=== PATIENT | female | born 1965 | race Two or more races ===

== ENCOUNTER 2020-01-28 06:59 | Inpatient (IN) | payer OTHER ==
[~2020-01-28] VITALS: Ht 157.5 cm; Wt 74.8 kg
[2020-01-28 07:15] VITALS: BP 152/72
[2020-01-28] MEDS ORDERED: AMLODIPINE BES2.5 MG ORAL (07:15)
[2020-01-28] MEDS ORDERED: METFORMIN HCL500 M1 ORAL (07:15)
--- NOTE | 2020-01-28 07:15 | NUR ---
ED Nurse Note: Patient walked into ED from home c/o 06/08 lower right jaw pain x 2 days. Patient has been taking Keflex with no effect. Patient's chin is swollen and has a small area of open skin over the swollen area. Patient AxO x 4, no s/s of acute distress. 20 g IV started in right AC, blood sent to lab. Consent for CT w/ contrast signed by patient.
--- NOTE | 2020-01-28 07:40 | Emergency Room Report ---
History of Present Illness General Chief Complaint: Edema Source: Patient Present Illness HPI Disclaimer: Please note that this report is being documented using DRAGON technology. This can lead to erroneous entry secondary to incorrect interpretation by the dictating instrument. HPI: 54-year-old female presents for evaluation of facial pain and swelling. She has a history of diabetes hypertension and anemia. Patient states she popped a pimple on the right side of her chin several days ago noting worsening pain, swelling and erythema which is now tracking down the right side of the neck. Notes worsening pain and induration. Denies swelling of the tongue, throat, difficulty breathing, difficulty swallowing, fever, chills, sore throat , nasal congestion, chest pain, shortness of breath, cough, vomiting, diarrhea. Notes swelling of the right lip. She was started on antibiotics by her PMD yesterday. Pain was getting worse and came into the hospital for evaluation. She states it is very tender to palpation. No significant provement after antibiotics started yesterday. PMH: Hypertension, diabetes, anemia PSH: Denies Allergies: Denies Social Hx: Denies tobacco, drug or alcohol abuse Allergies: Coded Allergies: No Known Allergies (Unverified , 01/28/20) COVID-19 Screening Contact w/high risk pt: No Recent Travel to affected area: No Experienced COVID-19 symptoms?: No Patient History Now: No Nursing Documentation-PMH Past Medical History: No History, Except For Hx Hypertension: Yes Hx Diabetes: Yes Review of Systems All Other Systems: negative except mentioned in HPI Physical Exam Vital Signs Date Time Temp Pulse Resp B/P (MAP) Pulse Ox O2 Delivery O2 Flow Rate FiO2 01/28/20 07:11 97.2 80 17 176/68 (104) 98 Room Air General: Awake and alert, no acute distress HEENT: NC/AT. EOMI. edema of the right lower lip and right side of the lower face tracking into the submandibular region. Indurated and tender to palpation. Firm, no fluctuance. There are 2 burst papules on the right lower chin. Cannot express any fluid. Neck: Supple, trachea midline. Stranding erythema radiating from the right lower chin down the right side of the neck. Mild edema over the neck as well. Tolerating secretions well. No tongue edema. Uvula is midline. Chest Wall: No tenderness, no deformity Cardiovascular: RRR. S1 and S2 normal. No murmur appreciated Resp: Normal work of breathing. No stridor. No cough, wheezing or crackles appreciated Abdomen: Abdomen is soft, nondistended. Nontender Skin: Intact. No abrasions, laceration or rash over the exposed skin MSK: Normal tone and bulk. Moving all extremities. No obvious deformity. Neuro: Awake and alert. Mentating appropriately. Medical Decision Making Diagnostic Impression: Primary Impression: Facial cellulitis ER Course This is a 54-year-old female presenting for evaluation of right-sided facial pain and swelling. Differential includes but is not limited to erysipelas, cellulitis, abscess, Lee angina, allergic reaction. Her history of physical exam most consistent with a cellulitis however there is edema and erythema tracking down into the submandibular region and must evaluate for deep space infection. Will obtain labs, cultures, CT scan. Will start Unasyn. Patient be kept n.p.o., IV maintenance fluids started. Laboratory Tests Test 01/28/20 07:50 White Blood Count 9.5 K/UL (4.8-10.8) Red Blood Count 4.98 M/UL (4.20-5.40) Hemoglobin 14.0 G/DL (12.0-16.0) Hematocrit 40.4 % (37.0-47.0) Mean Corpuscular Volume 81 FL (80-99) Mean Corpuscular Hemoglobin 28.1 PG (27.0-31.0) Mean Corpuscular Hemoglobin Concent 34.6 G/DL (32.0-36.0) Red Cell Distribution Width 11.1 % (11.6-14.8) L Platelet Count 196 K/UL (150-450) Mean Platelet Volume 7.1 FL (6.5-10.1) Neutrophils (%) (Auto) 79.3 % (45.0-75.0) H Lymphocytes (%) (Auto) 12.9 % (20.0-45.0) L Monocytes (%) (Auto) 6.4 % (1.0-10.0) Eosinophils (%) (Auto) 0.7 % (0.0-3.0) Basophils (%) (Auto) 0.7 % (0.0-2.0) Sodium Level 134 MMOL/L (136-145) L Potassium Level 3.7 MMOL/L (3.5-5.1) Chloride Level 98 MMOL/L (98-107) Carbon Dioxide Level 29 MMOL/L (21-32) Anion Gap 7 mmol/L (5-15) Blood Urea Nitrogen 11 mg/dL (7-18) Creatinine 0.5 MG/DL (0.55-1.30) L Estimated Glomerular Filtration Rate > 60 mL/min (>60) Glucose Level 265 MG/DL (74-106) H Calcium Level 9.1 MG/DL (8.5-10.1) Total Bilirubin 0.4 MG/DL (0.2-1.0) Aspartate Amino Transferase (AST) 15 U/L (15-37) Alanine Aminotransferase (ALT) 28 U/L (12-78) Alkaline Phosphatase 172 U/L (46-116) H Total Protein 7.6 G/DL (6.4-8.2) Albumin 3.3 G/DL (3.4-5.0) L Globulin 4.3 g/dL Albumin/Globulin Ratio 0.8 (1.0-2.7) L Reevaluation Time: 12:23 Last Vital Signs Date Time Temp Pulse Resp B/P (MAP) Pulse Ox O2 Delivery O2 Flow Rate FiO2 01/28/20 07:11 97.2 80 17 176/68 (104) 98 Room Air Reevaluation Impression Preliminary CT interpretation shows cellulitis tracking to the platysma and possibly crossing the platysma though no deep space abscess or signs of significant deep space infection were noted. The patient receiving Unasyn. Cultures were sent. She remains in stable condition without airway compromise. She will be admitted to medical/surgical floor for further IV antibiotics and treatment of facial cellulitis. Will admit to panel physician. Disposition: ADMITTED INPATIENT Condition: Serious Referrals: NOT CHOSEN IPA/,REFERRING (PCP) Vivek Wesley MD Jan 28, 2020 07:40
[2020-01-28] MEDS ORDERED: Omnipaque-300 100ml vial INJ ONE (07:45)
[2020-01-28] MEDS ORDERED: Morphine Sulfate 4mg/ml Inj (IV USE ONLY) IVP ONE ×2 (07:45→10:30)
[2020-01-28] MEDS ORDERED: Unasyn 3gm Inj IV SCH (07:45)
[2020-01-28] MEDS ORDERED: Unasyn 3gm in NS 110ml IVPB ONE (08:15)
[2020-01-28 08:21] LABS: BASOPHILS % (AUTO) 0.7 % (0.0-2.0); EOSINOPHILS % (AUTO) 0.7 % (0.0-3.0); HEMATOCRIT 40.4 % (37.0-47.0); LYMPHOCYTES % (AUTO) 12.9 % (20.0-45.0); MEAN CORPUSCULAR VOLUME 81 FL (80-99); MONOCYTES % (AUTO) 6.4 % (1.0-10.0); NEUTROPHILS % (AUTO) 79.3 % (45.0-75.0); PLATELET COUNT 196 K/UL (150-450); RED BLOOD COUNT 4.98 M/UL (4.20-5.40); RED CELL DISTRIBUTION WIDTH 11.1 % (11.6-14.8); WHITE BLOOD COUNT 9.5 K/UL (4.8-10.8)
[2020-01-28 08:30] LABS: ANION GAP 7 mmol/L (5-15); BLOOD UREA NITROGEN 11 mg/dL (7-18); CALCIUM 9.1 MG/DL (8.5-10.1); CARBON DIOXIDE 29 MMOL/L (21-32); CHLORIDE 98 MMOL/L (98-107); CREATININE 0.5 MG/DL (0.55-1.30); POTASSIUM 3.7 MMOL/L (3.5-5.1); SODIUM 134 MMOL/L (136-145)
[2020-01-28 08:35] LABS: ALANINE AMINOTRANSFERASE 28 U/L (12-78); ALBUMIN 3.3 G/DL (3.4-5.0); ALBUMIN/GLOBULIN RATIO 0.8 (1.0-2.7); ALKALINE PHOSPHATASE 172 U/L (46-116); ASPARTATE AMINO TRANSFERASE 15 U/L (15-37); BILIRUBIN,TOTAL 0.4 MG/DL (0.2-1.0)
--- NOTE | 2020-01-28 08:50 | NUR ---
ED Nurse Note: Patient taken to CT
[2020-01-28 09:10] VITALS: BP 148/75
--- NOTE | 2020-01-28 09:15 | NUR ---
ED Nurse Note: Patient returned from CT
--- NOTE | 2020-01-28 11:05 | NUR ---
ED Nurse Note: Patient resting in bed. Patient stated that initial dose of morphine was effective, but pain came back. Another dose of Morphine given per Dr. Wesley. Patient tolerating well.
[2020-01-28 11:10] VITALS: BP 149/71
[2020-01-28 13:10] VITALS: BP 146/80
--- NOTE | 2020-01-28 13:46 | Diagnostic Imaging Report ---
Indication: Facial pain and swelling Technique: IV administration nonionic contrast. Spiral acquisitions obtained through the neck. Multiplanar reconstructions were generated. Total dose length product to 7 mGycm. CTDIvol(s) 11, 71, 6 mGy. Dose reduction achieved using automated exposure control Comparison: none Findings: There is infiltration of the subcutaneous fat of the right side of the anterior face, beginning at about the level of the alveolar ridge of the maxilla, and extending inferiorly into the submental region. This extends is likely laterally to midline. In the submental region, there is some involvement of the fat deep to the platysma muscle. No evidence of abscess demonstrated. There are prominent but not frankly enlarged lymph nodes in the submental region as well as in the anterior triangle. The nasopharynx, oropharynx, hypopharynx, and larynx are unremarkable. No prevertebral soft tissue swelling. There are a few small calcifications within the thyroid. The trachea and proximal esophagus are unremarkable. The included upper mediastinum is unremarkable. The included lung apices demonstrate mild hazy opacities Impression: Inflammatory change of the superficial subcutaneous fat as well as a slightly deeper fat, likely representing cellulitis given stated clinical history. No findings to suggest abscess. Nonspecific hazy apical pulmonary parenchymal opacities. Small thyroid calcifications Findings previously discussed by phone with Dr. Wesley in the emergency room The CT scanner at [facility] is accredited by the [employer] and the scans are performed using protocols designed to limit radiation exposure to as low as reasonably achievable to attain images of sufficient resolution adequate for diagnostic evaluation.
--- NOTE | 2020-01-28 13:54 | NUR ---
ED Nurse Note: Report given to Jerry KIM
[2020-01-28] MEDS: metFORMIN 500mg tab ORAL SCH ×2 (14:00→17:33)
[2020-01-28] MEDS ORDERED: Zolpidem 5mg tab ORAL PRN (14:00)
--- NOTE | 2020-01-28 14:01 | History & Physical ---
History and Physical History & Physicial HP dictated # [id number] Curly Tanner MD Jan 28, 2020 14:01
--- NOTE | 2020-01-28 14:40 | NUR ---
NURSE NOTES: Handoff received from JUDY Benítez. Patient transported to room via wheelchair. Patient is alert and oriented to person, time, place and situation. Patient complaining of 7/10 pain in the face and jaw. patient admitted for facial cellulitis. Patient has right AC 20g IV clean dry and intact, saline locked. Patient educated on visiting policy, no visitors at this time due to covid19. Patient oriented to room, call light and provided with TV remote and phone. Bed in the low and locked position with call light at bedside. Patient ambulates steady. Vitals are stable, patient able to make needs known, no acute signs of distress noted. Medications placed in pharmacy. Will continue to monitor patient.
[2020-01-28] MEDS ORDERED: Vancomycin 1.25gm/NS Premix IVPB ONE (15:00)
[2020-01-28] MEDS ORDERED: Morphine Sulfate 4mg/ml Inj (IV USE ONLY) IVP PRN (15:30)
[2020-01-28 16:12] VITALS: BP 155/74
--- NOTE | 2020-01-28 16:30 | History and Physical Report ---
DATE OF ADMISSION: 01/28/2020 CHIEF COMPLAINT: Facial swelling and redness. HISTORY OF PRESENT ILLNESS: This is a 54-year-old female who started having some redness over the right side of her chin about 3 days ago. The patient apparently popped a pimple over there and then the swelling and redness became worse, extending to the right side of the neck. The patient was seen in the emergency room, was diagnosed with facial cellulitis and was admitted. PAST MEDICAL HISTORY: Includes history of diabetes, hypertension, anemia. MEDICATIONS: Reviewed in the EMR. SOCIAL HISTORY: The patient lives at home with . No history of smoking or alcohol abuse. ALLERGIES: No known drug allergies. REVIEW OF SYSTEMS: Noncontributory except above. PHYSICAL EXAMINATION: GENERAL: The patient is a moderately obese female, in no acute distress. VITAL SIGNS: Blood pressure , pulse 80, respirations 17, temperature 97.2. HEENT: The patient has right side with redness and redness is well demarcated and extends beyond that point from the chin to the face as well as to the neck area. LUNGS: Clear to auscultation. HEART: S1, S2 without murmurs or rubs. ABDOMEN: Soft, nontender. EXTREMITIES: No cyanosis or edema. LABORATORY FINDINGS: The CBC shows a WBC of 9500, hematocrit 40.4, hemoglobin is 14, platelets 196,000. Chemistry panel shows a serum sodium 134, potassium 3.7, chloride 98, BUN is 11, creatinine 0.5, blood sugar is 265. ASSESSMENT: This is a 54-year-old female who was admitted with facial cellulitis, probably started from a pimple. The patient has diabetes. Her blood sugar is not controlled. She has history of hypertension. Blood pressure is not controlled either. PLAN: The patient will be on IV antibiotics of Vanco and Zosyn. She will be seen by ID training consultant as well as surgical consultation to see if the abscess needs to be drained. She is going to be on sliding scale insulin. Blood pressure medications will be adjusted. Curly Tanner M.D. DR: GRAHAM JOB#: [id number] CC:
[2020-01-28] MEDS: NovoLOG Insulin Flexpen SUBQ SCH ×2 (17:33→20:07)
--- NOTE | 2020-01-28 17:37 | Consultation ---
History of Present Illness General Date patient seen: Jan 28, 2020 Reason for Hospitalization: Edema Present Illness HPI 54-year-old female presents for evaluation of facial pain and swelling. She has a history of diabetes hypertension and anemia. Patient states she popped a pimple on the right side of her chin several days ago noting worsening pain, swelling and erythema which is now tracking down the right side of the neck. Notes worsening pain and induration. Denies swelling of the tongue, throat, difficulty breathing, difficulty swallowing, fever, chills, sore throat, nasal congestion, chest pain, shortness of breath, cough, vomiting, diarrhea. Notes swelling of the right lip. She was started on antibiotics by her PMD yesterday. Pain was getting worse and came into the hospital for evaluation. She states it is very tender to palpation. No significant provement after antibiotics started yesterday. Surgery called toe valuate and assist with care given cellulitis Allergies: Coded Allergies: No Known Allergies (Unverified , 01/28/20) COVID-19 Screening Contact w/high risk pt: No Recent Travel to affected area: No Experienced COVID-19 symptoms?: No Medication History Scheduled Amlodipine Besylate* (Amlodipine Besylate*), Unknown Dose ORAL DAILY, (Reported) Metformin Hcl* (Metformin Hcl*), Unknown Dose ORAL TWICE A DAY, (Reported) Patient History History Provided By: Patient, Medical Record, PMD Healthcare decision maker Resuscitation status Full Code Advanced Directive on File Past Medical/Surgical History Past Medical/Surgical History: (1) Facial cellulitis Review of Systems Review of Symptoms General ROS: no weight loss or fever Psychological ROS: no depression or mood changes, no memory loss Ophthalmic ROS: no visual changes or eye irritation ENT ROS: no nasal congestion, hearing loss, dizziness Allergy and Immunology ROS: no allergic symptoms or urticaria Hematological and Lymphatic ROS: no swollen glands, unusual bleeding or bruising Endocrine ROS: no polyuria, polydipsia, weight changes, temperature intolerance Respiratory ROS: no cough, shortness of breath, or wheezing Cardiovascular ROS: no chest pain or dyspnea on exertion Gastrointestinal ROS: denies abdominal pain, bright red blood in stool. Musculoskeletal ROS: no myalgias or arthralgias Neurological ROS: no TIA or stroke symptoms Dermatological ROS: no new or changing skin lesions, rashes or pruritis Physical Exam Physical Exam General appearance: alert, cooperative, no distress, appears stated age Head: Normocephalic, without obvious abnormality, atraumatic Eyes: conjunctivae/corneas clear. PERRL, EOM's intact. Fundi benign Throat: Lips, mucosa, and tongue normal. Teeth and gums normal Neck: supple, symmetrical, trachea midline, no adenopathy, thyroid: not enlarged, symmetric, no tenderness/mass/nodules, no carotid bruit and no JVD see below Lungs: clear to auscultation bilaterally Heart: regular rate and rhythm, S1, S2 normal, no murmur, click, rub or gallop Abdomen: soft, non-tender. Bowel sounds normal. No masses, no organomegaly Extremities: extremities normal, atraumatic, no cyanosis or edema Pulses: 2+ and symmetric Skin: Skin color, texture, turgor normal. No rashes or lesions Neurologic: Grossly normal Last 24 Hour Vital Signs Date Time Temp Pulse Resp B/P (MAP) Pulse Ox O2 Delivery O2 Flow Rate FiO2 01/28/20 16:12 97.9 78 20 155/74 (101) 96 01/28/20 15:23 78 155/74 01/28/20 13:10 97.2 85 17 146/80 100 Room Air 01/28/20 11:10 97.3 81 17 149/71 100 Room Air 01/28/20 09:10 97.4 82 16 148/75 99 Room Air 01/28/20 07:15 80 17 Room Air 01/28/20 07:15 97.2 80 17 152/72 98 Room Air 01/28/20 07:11 97.2 80 17 176/68 (104) 98 Room Air Laboratory Tests Test 01/28/20 07:50 White Blood Count 9.5 K/UL (4.8-10.8) Red Blood Count 4.98 M/UL (4.20-5.40) Hemoglobin 14.0 G/DL (12.0-16.0) Hematocrit 40.4 % (37.0-47.0) Mean Corpuscular Volume 81 FL (80-99) Mean Corpuscular Hemoglobin 28.1 PG (27.0-31.0) Mean Corpuscular Hemoglobin Concent 34.6 G/DL (32.0-36.0) Red Cell Distribution Width 11.1 % (11.6-14.8) L Platelet Count 196 K/UL (150-450) Mean Platelet Volume 7.1 FL (6.5-10.1) Neutrophils (%) (Auto) 79.3 % (45.0-75.0) H Lymphocytes (%) (Auto) 12.9 % (20.0-45.0) L Monocytes (%) (Auto) 6.4 % (1.0-10.0) Eosinophils (%) (Auto) 0.7 % (0.0-3.0) Basophils (%) (Auto) 0.7 % (0.0-2.0) Sodium Level 134 MMOL/L (136-145) L Potassium Level 3.7 MMOL/L (3.5-5.1) Chloride Level 98 MMOL/L (98-107) Carbon Dioxide Level 29 MMOL/L (21-32) Anion Gap 7 mmol/L (5-15) Blood Urea Nitrogen 11 mg/dL (7-18) Creatinine 0.5 MG/DL (0.55-1.30) L Estimat Glomerular Filtration Rate > 60 mL/min (>60) Glucose Level 265 MG/DL (74-106) H Calcium Level 9.1 MG/DL (8.5-10.1) Total Bilirubin 0.4 MG/DL (0.2-1.0) Aspartate Amino Transf (AST/SGOT) 15 U/L (15-37) Alanine Aminotransferase (ALT/SGPT) 28 U/L (12-78) Alkaline Phosphatase 172 U/L (46-116) H Total Protein 7.6 G/DL (6.4-8.2) Albumin 3.3 G/DL (3.4-5.0) L Globulin 4.3 g/dL Albumin/Globulin Ratio 0.8 (1.0-2.7) L Height (Feet): 5 Height (Inches): 2.00 Weight (Pounds): 167 Medications Current Medications Medications (Trade) Dose Ordered Sig/Velia Route PRN Reason Start Time Stop Time Status Last Admin Dose Admin Acetaminophen/ Hydrocodone Bitart ([place] 10/325) 1 tab Q4H PRN ORAL Pain Scale (3-7) 01/28/20 15:30 02/04/20 15:29 Amlodipine Besylate (Norvasc) 10 mg DAILY ORAL 01/28/20 14:00 02/27/20 13:59 01/28/20 15:23 Clonidine HCl (Catapres Tab) 0.1 mg Q4H PRN ORAL For High Blood Pressure 01/28/20 14:15 04/27/20 14:14 Dextrose (Dextrose 50%) 25 ml Q30M PRN IV Hypoglycemia 01/28/20 14:15 04/27/20 14:14 Dextrose (Dextrose 50%) 50 ml Q30M PRN IV Hypoglycemia 01/28/20 14:15 04/27/20 14:14 Insulin Aspart (NovoLOG) BEFORE MEALS AND HS SUBQ 01/28/20 16:30 04/27/20 16:29 01/28/20 17:33 Metformin HCl (Glucophage) 500 mg TWICE A DAY ORAL 01/28/20 14:00 02/27/20 13:59 01/28/20 17:33 Morphine Sulfate (Morphine Sulfate) 5 mg Q4H PRN IVP Severe Pain (Pain Scale 7-10) 01/28/20 15:30 02/04/20 15:29 01/28/20 15:53 Piperacillin Sod/ Tazobactam Sod 3.375 gm/Sodium Chloride 110 ml @ 27.5 mls/hr Q8H IVPB 01/28/20 17:00 02/04/20 16:59 Vancomycin HCl (Vanco rx to dose) 1 ea DAILY PRN MISC Per rx protocol 01/28/20 14:00 02/27/20 13:59 Vancomycin HCl 750 mg/Sodium Chloride 275 ml @ 183.333 mls/hr Q8H IVPB 01/28/20 23:00 02/02/20 22:59 Zolpidem Tartrate (Ambien) 5 mg HSPRN PRN ORAL Insomnia 01/28/20 14:00 02/04/20 13:59 Assessment/Plan Problem List: (1) Facial cellulitis Assessment & Plan: right facial abscess at jaw. neck okay. no fluctuance no drainage tender red will monitor on IV abx if develops abscess will be available for I&D. currently no abscess to drain There is infiltration of the subcutaneous fat of the right side of the anterior face, beginning at about the level of the alveolar ridge of the maxilla , and extending inferiorly into the submental region. This extends is likely laterally to midline. In the submental region, there is some involvement of the fat deep to the platysma muscle. No evidence of abscess demonstrated. There are prominent but not frankly enlarged lymph nodes in the submental region as well as in the anterior triangle. The nasopharynx, oropharynx, hypopharynx, and larynx are unremarkable. No prevertebral soft tissue swelling. There are a few small calcifications within the thyroid. The trachea and proximal esophagus are unremarkable. The included upper mediastinum is unremarkable. The included lung apices demonstrate mild hazy opacities Impression: Inflammatory change of the superficial subcutaneous fat as well as a slightly deeper fat, likely representing cellulitis given stated clinical history. No findings to suggest abscess. Nonspecific hazy apical pulmonary parenchymal opacities. Small thyroid calcifications ICD Codes: L03.211 - Cellulitis of face SNOMED: [id number] Garry Correia Jan 28, 2020 17:37
[2020-01-28] MEDS: Piperacillin/Tazobactam 3.375 GM in NS 110 ML IVPB SCH (18:51)
--- NOTE | 2020-01-28 19:27 | NUR ---
HAND-OFF: Report given to JUDY Sun.
[2020-01-28 20:00] VITALS: BP 153/73
--- NOTE | 2020-01-28 20:00 | NUR ---
NURSE NOTES: Patient received in bed, awake and orientedx4. IV is intact and patent. Reported better pain relieved with medication and reported decreased nausea. Bed is locked in low position. Call light in reach, instructed to call for assistance. Will continue plan of care.
[2020-01-28] MEDS: Vancomycin 750mg/NS 275ml IVPB SCH ×2 (23:11)
[2020-01-29] VITALS: BP 143/69
[2020-01-29] MEDS: Piperacillin/Tazobactam 3.375 GM in NS 110 ML IVPB SCH ×3 (00:44→17:20)
[2020-01-29 04:00] VITALS: BP 150/71
[2020-01-29] MEDS: NovoLOG Insulin Flexpen SUBQ SCH ×4 (05:54→20:17)
[2020-01-29] MEDS: Vancomycin 750mg/NS 275ml IVPB SCH ×2 (05:59)
[2020-01-29 06:42] LABS: BASOPHILS % (AUTO) 0.7 % (0.0-2.0); EOSINOPHILS % (AUTO) 0.2 % (0.0-3.0); HEMATOCRIT 37.5 % (37.0-47.0); HEMOGLOBIN 12.9 G/DL (12.0-16.0); LYMPHOCYTES % (AUTO) 13.8 % (20.0-45.0); MEAN CORPUSCULAR VOLUME 81 FL (80-99); MONOCYTES % (AUTO) 6.6 % (1.0-10.0); NEUTROPHILS % (AUTO) 78.6 % (45.0-75.0); PLATELET COUNT 217 K/UL (150-450); RED CELL DISTRIBUTION WIDTH 11.2 % (11.6-14.8); WHITE BLOOD COUNT 11.1 K/UL (4.8-10.8)
[2020-01-29 07:16] LABS: ANION GAP 9 mmol/L (5-15); BLOOD UREA NITROGEN 9 mg/dL (7-18); CARBON DIOXIDE 27 MMOL/L (21-32); CHLORIDE 98 MMOL/L (98-107); CHOLESTEROL 134 MG/DL (< 200); CREATININE 0.4 MG/DL (0.55-1.30); HDL CHOLESTEROL 42 MG/DL (40-60); POTASSIUM 3.4 MMOL/L (3.5-5.1); SODIUM 134 MMOL/L (136-145); TRIGLYCERIDES 94 MG/DL (30-150)
--- NOTE | 2020-01-29 07:22 | NUR ---
HAND-OFF: Report given to Goldie KIM.
--- NOTE | 2020-01-29 07:37 | NUR ---
NURSE NOTES: Patient seen on rounds, AxOx4, Angolan-speaking but able to speak and understand some Gambian. Noted redness over right jaw area, warm to touch, and slightly tender. PIV is intact on right AC. Patient is ambulatory. Side rails up x2, call light within reach. Instructed to call nurse for assistance. Will continue to monitor.
[2020-01-29 08:00] VITALS: BP 130/58
[2020-01-29] MEDS: metFORMIN 500mg tab ORAL SCH ×2 (08:54→18:27)
--- NOTE | 2020-01-29 11:21 | Surgery Progress Note ---
Surgery Progress Note Subjective Symptoms: improved, tolerating diet, voiding well, passing flatus, BM, pain decreased Objective Last 24 Hour Vital Signs Date Time Temp Pulse Resp B/P (MAP) Pulse Ox O2 Delivery O2 Flow Rate FiO2 01/29/20 09:00 Room Air 01/29/20 08:54 79 130/58 01/29/20 08:00 99.0 79 18 130/58 (82) 95 01/29/20 04:00 99.8 83 25 150/71 (97) 98 01/29/20 00:00 99.1 86 22 143/69 (93) 100 01/28/20 21:00 Room Air 01/28/20 20:00 99.1 82 24 153/73 (99) 96 01/28/20 16:12 97.9 78 20 155/74 (101) 96 01/28/20 15:26 Room Air 01/28/20 15:23 78 155/74 01/28/20 14:20 97.2 85 17 146/80 100 Room Air 01/28/20 13:10 97.2 85 17 146/80 100 Room Air I&O Intake and Output 01/28/20 01/29/20 19:00 07:00 Intake Total 1000 ml 1130.00 ml Balance 1000 ml 1130.00 ml Intake Oral 0 ml IV Total 1000 ml 770.00 ml Other 360 ml # Voids 2 # Bowel Movements 1 Dressing: dry Wound: clean Cardiovascular: RSR Respiratory: clear Abdomen: soft, flat, non-tender, present bowel sounds Extremities: no edema, no tenderness, no cyanosis Laboratory Tests Test 01/29/20 05:44 White Blood Count 11.1 K/UL (4.8-10.8) H Red Blood Count 4.60 M/UL (4.20-5.40) Hemoglobin 12.9 G/DL (12.0-16.0) Hematocrit 37.5 % (37.0-47.0) Mean Corpuscular Volume 81 FL (80-99) Mean Corpuscular Hemoglobin 28.2 PG (27.0-31.0) Mean Corpuscular Hemoglobin Concent 34.6 G/DL (32.0-36.0) Red Cell Distribution Width 11.2 % (11.6-14.8) L Platelet Count 217 K/UL (150-450) Mean Platelet Volume 6.9 FL (6.5-10.1) Neutrophils (%) (Auto) 78.6 % (45.0-75.0) H Lymphocytes (%) (Auto) 13.8 % (20.0-45.0) L Monocytes (%) (Auto) 6.6 % (1.0-10.0) Eosinophils (%) (Auto) 0.2 % (0.0-3.0) Basophils (%) (Auto) 0.7 % (0.0-2.0) Sodium Level 134 MMOL/L (136-145) L Potassium Level 3.4 MMOL/L (3.5-5.1) L Chloride Level 98 MMOL/L (98-107) Carbon Dioxide Level 27 MMOL/L (21-32) Anion Gap 9 mmol/L (5-15) Blood Urea Nitrogen 9 mg/dL (7-18) Creatinine 0.4 MG/DL (0.55-1.30) L Estimat Glomerular Filtration Rate > 60 mL/min (>60) Glucose Level 215 MG/DL (74-106) H Hemoglobin A1c 12.9 % (4.3-6.0) H Calcium Level 9.0 MG/DL (8.5-10.1) Magnesium Level 1.8 MG/DL (1.8-2.4) Triglycerides Level 94 MG/DL (30-150) Cholesterol Level 134 MG/DL (< 200) LDL Cholesterol 73 mg/dL (<100) HDL Cholesterol 42 MG/DL (40-60) Cholesterol/HDL Ratio 3.2 (3.3-4.4) L Plan Problems: (1) Facial cellulitis Assessment & Plan: right facial abscess at jaw. neck okay. no fluctuance no drainage tender red will monitor on IV abx if develops abscess will be available for I&D. currently no abscess to drain skin break down noted but no pus or fluctuance still abx iv helping cont abx will monitor There is infiltration of the subcutaneous fat of the right side of the anterior face, beginning at about the level of the alveolar ridge of the maxilla , and extending inferiorly into the submental region. This extends is likely laterally to midline. In the submental region, there is some involvement of the fat deep to the platysma muscle. No evidence of abscess demonstrated. There are prominent but not frankly enlarged lymph nodes in the submental region as well as in the anterior triangle. The nasopharynx, oropharynx, hypopharynx, and larynx are unremarkable. No prevertebral soft tissue swelling. There are a few small calcifications within the thyroid. The trachea and proximal esophagus are unremarkable. The included upper mediastinum is unremarkable. The included lung apices demonstrate mild hazy opacities Impression: Inflammatory change of the superficial subcutaneous fat as well as a slightly deeper fat, likely representing cellulitis given stated clinical history. No findings to suggest abscess. Nonspecific hazy apical pulmonary parenchymal opacities. Small thyroid calcifications Garry Correia Jan 29, 2020 11:21
[2020-01-29] MEDS: HYDROcodone/Acetamin 10/325 tab ORAL PRN ×3 (11:27→23:09)
[2020-01-29 12:00] VITALS: BP 154/80
--- NOTE | 2020-01-29 12:57 | NUR ---
CASE MANAGEMENT:INITIAL REVIEW 54 YR OLD FEMALE FROM HOME CC;EDEMA SI;FACIAL CELLULITIS 97.2 85 17 176/68 97% ON RA NA 134 BG 265 ALK PHOS [address] ~ Inflammatory change of the superficial subcutaneous fat as well as a slightly deeper fat, likely representing cellulitis given stated clinical history. No findings to suggest abscess. IS;AMPICILLIN IV MORPHINE IV IVF NS BOLUS ADMITTED TO MED SURG MED SURG STATUS DCP;FROM HOME
--- NOTE | 2020-01-29 13:30 | General Progress Note ---
Assessment/Plan Problem List: (1) Facial cellulitis ICD Codes: L03.211 - Cellulitis of face SNOMED: 989665185 (2) DM (diabetes mellitus) ICD Codes: E11.9 - Type 2 diabetes mellitus without complications SNOMED: 74322170 (3) HTN (hypertension) ICD Codes: I10 - Essential (primary) hypertension SNOMED: 56987260 Assessment/Plan: abxs ID follow up follow labs and BS Subjective Allergies: Coded Allergies: No Known Allergies (Unverified , 01/28/20) Subjective In NAD Objective Last 24 Hour Vital Signs Date Time Temp Pulse Resp B/P (MAP) Pulse Ox O2 Delivery O2 Flow Rate FiO2 01/29/20 12:00 98.2 78 18 154/80 (104) 97 01/29/20 09:00 Room Air 01/29/20 08:54 79 130/58 01/29/20 08:00 99.0 79 18 130/58 (82) 95 01/29/20 04:00 99.8 83 25 150/71 (97) 98 01/29/20 00:00 99.1 86 22 143/69 (93) 100 01/28/20 21:00 Room Air 01/28/20 20:00 99.1 82 24 153/73 (99) 96 01/28/20 16:12 97.9 78 20 155/74 (101) 96 01/28/20 15:26 Room Air 01/28/20 15:23 78 155/74 01/28/20 14:20 97.2 85 17 146/80 100 Room Air Intake and Output 01/28/20 01/29/20 18:59 06:59 Intake Total 1000 ml 855.00 ml Balance 1000 ml 855.00 ml Intake Oral 0 ml IV Total 1000 ml 495.00 ml Other 360 ml # Voids 2 # Bowel Movements 1 Laboratory Tests 01/29/20 05:44: White Blood Count 11.1H, Red Blood Count 4.60, Hemoglobin 12.9, Hematocrit 37.5 , Mean Corpuscular Volume 81, Mean Corpuscular Hemoglobin 28.2, Mean Corpuscular Hemoglobin Concent 34.6, Red Cell Distribution Width 11.2L, Platelet Count 217, Mean Platelet Volume 6.9, Neutrophils (%) (Auto) 78.6H, Lymphocytes (%) (Auto) 13.8L, Monocytes (%) (Auto) 6.6, Eosinophils (%) (Auto) 0.2, Basophils (%) (Auto) 0.7, Sodium Level 134L, Potassium Level 3.4L, Chloride Level 98, Carbon Dioxide Level 27, Anion Gap 9, Blood Urea Nitrogen 9, Creatinine 0.4L, Estimat Glomerular Filtration Rate > 60, Glucose Level 215H, Hemoglobin A1c 12.9H, Calcium Level 9.0, Magnesium Level 1.8, Triglycerides Level 94, Cholesterol Level 134, LDL Cholesterol 73, HDL Cholesterol 42, Cholesterol/HDL Ratio 3.2L Height (Feet): 5 Height (Inches): 2.00 Weight (Pounds): 165 EENT: other - facial edema better Cardiovascular: normal rate Respiratory/Chest: lungs clear Curly Tanner MD Jan 29, 2020 13:30
[2020-01-29] MEDS: Vancomycin 1 GM in NS 275 ML IVPB SCH (15:58)
[2020-01-29 16:00] VITALS: BP 136/73
--- NOTE | 2020-01-29 16:04 | NUR ---
*-* INSURANCE *-* ALL CLINICALS AND REVIEWS HAVE BEEN FAXED TO: Sola RUSSELL ph# [phone] fax#[phone] & ISATU Ref#[id number] #[phone] fax# [phone]
--- NOTE | 2020-01-29 17:15 | Consultation ---
DATE OF CONSULTATION: 01/29/2020 INFECTIOUS DISEASES CONSULTATION CONSULTING PHYSICIAN: Pedro Tanner M.D. PRIMARY ATTENDING PHYSICIAN: Curly Tanner M.D. REASON FOR CONSULTATION: Cellulitis of face. HISTORY OF PRESENT ILLNESS: The patient is a 54-year-old female admitted yesterday complaining of facial pain, swelling. This started three days ago with simple pimple in right side of the chin. The patient popped the pimple and in few days the face become swollen and tender. PAST MEDICAL HISTORY: Significant for diabetes mellitus, hypertension, anemia. The patient is getting oral hypoglycemic agent at home. ALLERGIES: No known drug allergies. MEDICATIONS: Getting Zofran, vancomycin, Reglan, Zosyn, [place], morphine, clonidine, amlodipine, metformin. SOCIAL HISTORY: . Lives at home. No history of alcohol, drug abuse, or smoking. REVIEW OF SYSTEMS: No fever. No chills. She has facial pain. No coughing. No shortness of breath. Feels nausea, no vomiting. No problem passing urine. PHYSICAL EXAMINATION: VITAL SIGNS: Temperature 98.2, pulse 78, blood pressure 154/80. GENERAL APPEARANCE: Seems overweight. HEAD AND NECK: Have area of erythema, swelling and tenderness in the right chin. HEART: Normal rate. LUNGS: Clear. ABDOMEN: Soft and nontender. EXTREMITIES: No edema. LABORATORY AND DIAGNOSTIC DATA: Sodium 134, potassium 3.4, chloride 98, bicarbonate 27, BUN 9, creatinine 0.4, glucose is 215. Glucose at the time of admission was 265. WBC 11.1, hemoglobin 12.9, hematocrit 37.5, and platelets 217. Neck CT superficial subcutaneous fat changes likely representing cellulitis. No findings to suggest abscess. IMPRESSION: 1. Cellulitis of face. 2. Diabetes mellitus with hyperglycemia. 3. Hypertension. RECOMMENDATION: Continue vancomycin and Zosyn. We will follow up the patient clinically and try to taper antibiotics. At the end of my exam, I thank Dr. Curly Tanner for involving me in the care of this patient. Pedro Tanner M.D. DR: Cassy JOB#: [id number] CC: SHANIKA
--- NOTE | 2020-01-29 19:26 | NUR ---
HAND-OFF: Report given to Dino KIM.
[2020-01-29 20:00] VITALS: BP 131/63
--- NOTE | 2020-01-29 20:00 | NUR ---
NURSE NOTES: Patient received in bed, awake. No acute distress at this time. IV is intact and patent. Verbalized relief from pain with norco. Call light in reach, instructed to call for assistance. Will continue to monitor.
--- NOTE | 2020-01-29 22:00 | NUR ---
HAND-OFF: Report given to Park KIM.
--- NOTE | 2020-01-29 22:01 | NUR ---
NURSE NOTES: Received patient in no apparent distress. A&OX4. IV site patent and intact. Bed in lowest position. Call light within reach. Will continue to monitor.
[2020-01-30] VITALS: BP 150/71
[2020-01-30] MEDS: Vancomycin 1 GM in NS 275 ML IVPB SCH ×3 (00:07→15:46)
[2020-01-30] MEDS: Piperacillin/Tazobactam 3.375 GM in NS 110 ML IVPB SCH ×2 (02:12→10:48)
[2020-01-30 04:00] VITALS: BP 122/60
[2020-01-30 06:06] LABS: BASOPHILS % (AUTO) 1.1 % (0.0-2.0); EOSINOPHILS % (AUTO) 0.8 % (0.0-3.0); HEMATOCRIT 35.2 % (37.0-47.0); HEMOGLOBIN 12.1 G/DL (12.0-16.0); LYMPHOCYTES % (AUTO) 15.1 % (20.0-45.0); MEAN CORPUSCULAR VOLUME 81 FL (80-99); MONOCYTES % (AUTO) 8.5 % (1.0-10.0); NEUTROPHILS % (AUTO) 74.5 % (45.0-75.0); PLATELET COUNT 216 K/UL (150-450); RED BLOOD COUNT 4.34 M/UL (4.20-5.40); RED CELL DISTRIBUTION WIDTH 11.1 % (11.6-14.8); WHITE BLOOD COUNT 9.8 K/UL (4.8-10.8)
[2020-01-30 06:26] LABS: ANION GAP 9 mmol/L (5-15); BLOOD UREA NITROGEN 11 mg/dL (7-18); CALCIUM 9.1 MG/DL (8.5-10.1); CARBON DIOXIDE 26 MMOL/L (21-32); CHLORIDE 101 MMOL/L (98-107); CREATININE 0.4 MG/DL (0.55-1.30); POTASSIUM 3.6 MMOL/L (3.5-5.1); SODIUM 136 MMOL/L (136-145)
[2020-01-30] MEDS: NovoLOG Insulin Flexpen SUBQ SCH ×4 (06:30→21:30)
--- NOTE | 2020-01-30 07:42 | NUR ---
NURSE NOTES: Report received from Park KIM. Patient is awake and alert x 4 sitting at bedside eating breakfast. Patient does not appear to be in respiratory distress at this time, denies chest pain. Cellulitis noted in right side of jaw. Patient has no complaints at this time. Will continue to monitor cellulitis. Call light in reach. Bed locked and in lowest position. Will continue to follow plan of care.
--- NOTE | 2020-01-30 07:42 | NUR ---
HAND-OFF: Report given to Rafiq KIM.
[2020-01-30 08:00] VITALS: BP 130/66
[2020-01-30] MEDS: metFORMIN 500mg tab ORAL SCH ×2 (09:06→17:05)
--- NOTE | 2020-01-30 10:53 | NUR ---
*-* INSURANCE *-* UPDATED CLINICALS AND REVIEWS HAVE BEEN FAXED TO: Sola RUSSELL ph# [phone] fax#[phone] & ISATU Ref#[id number] #[phone] fax# [phone]
[2020-01-30 12:00] VITALS: BP 147/77
--- NOTE | 2020-01-30 12:36 | Infectious Diseases Prog Note ---
Assessment/Plan Assessment/Plan IMPRESSION: 1. Cellulitis of face.Developing abscess 2. Diabetes mellitus with hyperglycemia. 3. Hypertension. RECOMMENDATION: Continue vancomycin Discontinue Zosyn. Wound culture Subjective ROS Limited/Unobtainable: Yes Constitutional: Denies: fever Respiratory: Reports: no symptoms Gastrointestinal/Abdominal: Reports: no symptoms Genitourinary: Reports: no symptoms Skin: Reports: other - pain & pus from facial lesion Allergies: Coded Allergies: No Known Allergies (Unverified , 01/28/20) Objective Vital Signs Last 24 Hour Vital Signs Date Time Temp Pulse Resp B/P (MAP) Pulse Ox O2 Delivery O2 Flow Rate FiO2 01/30/20 09:07 76 130/66 01/30/20 09:00 Room Air 01/30/20 08:00 98.5 76 19 130/66 (87) 95 01/30/20 04:00 97.8 70 18 122/60 (80) 92 01/30/20 00:00 98.6 76 24 150/71 (97) 92 01/29/20 21:00 Room Air 01/29/20 20:00 98.5 74 24 131/63 (85) 96 01/29/20 16:00 97.3 73 18 136/73 (94) 95 Height (Feet): 5 Height (Inches): 2.00 Weight (Pounds): 165 General Appearance: no acute distress HEENT: mucous membranes moist Respiratory/Chest: lungs clear Cardiovascular: normal rate Abdomen: soft, non tender Extremities: no edema Skin: other - erythema/ abscess in R chin Neurologic/Psychiatric: alert, oriented x 3, responsive Microbiology Date/Time Source Procedure Growth Status 01/28/20 07:50 Blood Blood Culture - Preliminary NO GROWTH AFTER 24 HOURS Resulted 01/28/20 07:50 Blood Blood Culture - Preliminary NO GROWTH AFTER 24 HOURS Resulted Laboratory Tests Test 01/29/20 14:20 01/30/20 05:15 Vancomycin Level Trough 5.2 ug/mL (5.0-12.0) White Blood Count 9.8 K/UL (4.8-10.8) Red Blood Count 4.34 M/UL (4.20-5.40) Hemoglobin 12.1 G/DL (12.0-16.0) Hematocrit 35.2 % (37.0-47.0) L Mean Corpuscular Volume 81 FL (80-99) Mean Corpuscular Hemoglobin 27.9 PG (27.0-31.0) Mean Corpuscular Hemoglobin Concent 34.3 G/DL (32.0-36.0) Red Cell Distribution Width 11.1 % (11.6-14.8) L Platelet Count 216 K/UL (150-450) Mean Platelet Volume 6.1 FL (6.5-10.1) L Neutrophils (%) (Auto) 74.5 % (45.0-75.0) Lymphocytes (%) (Auto) 15.1 % (20.0-45.0) L Monocytes (%) (Auto) 8.5 % (1.0-10.0) Eosinophils (%) (Auto) 0.8 % (0.0-3.0) Basophils (%) (Auto) 1.1 % (0.0-2.0) Sodium Level 136 MMOL/L (136-145) Potassium Level 3.6 MMOL/L (3.5-5.1) Chloride Level 101 MMOL/L (98-107) Carbon Dioxide Level 26 MMOL/L (21-32) Anion Gap 9 mmol/L (5-15) Blood Urea Nitrogen 11 mg/dL (7-18) Creatinine 0.4 MG/DL (0.55-1.30) L Estimat Glomerular Filtration Rate > 60 mL/min (>60) Glucose Level 172 MG/DL (74-106) H Calcium Level 9.1 MG/DL (8.5-10.1) Current Medications Medications (Trade) Dose Ordered Sig/Velia Route PRN Reason Start Time Stop Time Status Last Admin Dose Admin Acetaminophen/ Hydrocodone Bitart ([place] 10/325) 1 tab Q4H PRN ORAL Pain Scale (3-7) 01/28/20 15:30 02/04/20 15:29 01/29/20 23:09 Amlodipine Besylate (Norvasc) 10 mg DAILY ORAL 01/28/20 14:00 02/27/20 13:59 01/30/20 09:07 Clonidine HCl (Catapres Tab) 0.1 mg Q4H PRN ORAL For High Blood Pressure 01/28/20 14:15 04/27/20 14:14 Dextrose (Dextrose 50%) 25 ml Q30M PRN IV Hypoglycemia 01/28/20 14:15 04/27/20 14:14 Dextrose (Dextrose 50%) 50 ml Q30M PRN IV Hypoglycemia 01/28/20 14:15 04/27/20 14:14 Insulin Aspart (NovoLOG) BEFORE MEALS AND HS SUBQ 01/28/20 16:30 04/27/20 16:29 01/30/20 12:14 Metformin HCl (Glucophage) 500 mg TWICE A DAY ORAL 01/28/20 14:00 02/27/20 13:59 01/30/20 09:06 Metoclopramide HCl (Reglan) 10 mg Q8H PRN ORAL Nausea & Vomiting 01/28/20 18:30 02/27/20 18:29 01/28/20 18:50 Morphine Sulfate (Morphine Sulfate) 5 mg Q4H PRN IVP Severe Pain (Pain Scale 7-10) 01/28/20 15:30 02/04/20 15:29 01/28/20 15:53 Ondansetron HCl (Zofran) 4 mg Q4H PRN IVP Nausea & Vomiting 01/29/20 12:30 02/28/20 12:29 01/29/20 12:53 Piperacillin Sod/ Tazobactam Sod 3.375 gm/Sodium Chloride 110 ml @ 27.5 mls/hr Q8H IVPB 01/28/20 17:00 02/04/20 16:59 01/30/20 10:48 Vancomycin HCl (Vanco rx to dose) 1 ea DAILY PRN MISC Per rx protocol 01/28/20 14:00 02/27/20 13:59 Vancomycin HCl 1 gm/Sodium Chloride 275 ml @ 183.708 mls/hr Q8H IVPB 01/29/20 16:00 02/03/20 15:59 01/30/20 09:07 Zolpidem Tartrate (Ambien) 5 mg HSPRN PRN ORAL Insomnia 01/28/20 14:00 02/04/20 13:59 Pedro Tanner MD Jan 30, 2020 12:36
--- NOTE | 2020-01-30 13:14 | General Progress Note ---
Assessment/Plan Problem List: (1) Facial cellulitis ICD Codes: L03.211 - Cellulitis of face SNOMED: 460975022 (2) DM (diabetes mellitus) ICD Codes: E11.9 - Type 2 diabetes mellitus without complications SNOMED: 63569495 (3) HTN (hypertension) ICD Codes: I10 - Essential (primary) hypertension SNOMED: 12957316 Assessment/Plan: abxs ID follow up Discussed with Dr Uribe needs I&D Subjective Allergies: Coded Allergies: No Known Allergies (Unverified , 01/28/20) Subjective In NAD Objective Last 24 Hour Vital Signs Date Time Temp Pulse Resp B/P (MAP) Pulse Ox O2 Delivery O2 Flow Rate FiO2 01/30/20 12:00 98.5 68 18 147/77 (100) 98 01/30/20 09:07 76 130/66 01/30/20 09:00 Room Air 01/30/20 08:00 98.5 76 19 130/66 (87) 95 01/30/20 04:00 97.8 70 18 122/60 (80) 92 01/30/20 00:00 98.6 76 24 150/71 (97) 92 01/29/20 21:00 Room Air 01/29/20 20:00 98.5 74 24 131/63 (85) 96 01/29/20 16:00 97.3 73 18 136/73 (94) 95 Intake and Output 01/29/20 01/30/20 19:00 07:00 Intake Total 1132.5 ml 772.500 ml Balance 1132.5 ml 772.500 ml Intake Oral 720 ml IV Total 412.5 ml 412.500 ml Other 360 ml # Voids 3 2 Laboratory Tests 01/29/20 14:20: Vancomycin Level Trough 5.2 01/30/20 05:15: White Blood Count 9.8, Red Blood Count 4.34, Hemoglobin 12.1, Hematocrit 35.2L, Mean Corpuscular Volume 81, Mean Corpuscular Hemoglobin 27.9, Mean Corpuscular Hemoglobin Concent 34.3, Red Cell Distribution Width 11.1L, Platelet Count 216, Mean Platelet Volume 6.1L, Neutrophils (%) (Auto) 74.5, Lymphocytes (%) (Auto) 15.1L, Monocytes (%) (Auto) 8.5, Eosinophils (%) (Auto) 0.8, Basophils (%) (Auto ) 1.1, Sodium Level 136, Potassium Level 3.6, Chloride Level 101, Carbon Dioxide Level 26, Anion Gap 9, Blood Urea Nitrogen 11, Creatinine 0.4L, Estimat Glomerular Filtration Rate > 60, Glucose Level 172H, Calcium Level 9.1 Height (Feet): 5 Height (Inches): 2.00 Weight (Pounds): 165 Cardiovascular: normal rate Respiratory/Chest: lungs clear Curly Tanner MD Jan 30, 2020 13:14
--- NOTE | 2020-01-30 14:32 | Surgery Progress Note ---
Surgery Progress Note Subjective Additional Comments started to have pus from wound last night today with fluctuance as cellulitis softended up needs I&D spoke with daughter and patient consent obtained Objective Last 24 Hour Vital Signs Date Time Temp Pulse Resp B/P (MAP) Pulse Ox O2 Delivery O2 Flow Rate FiO2 01/30/20 12:00 98.5 68 18 147/77 (100) 98 01/30/20 09:07 76 130/66 01/30/20 09:00 Room Air 01/30/20 08:00 98.5 76 19 130/66 (87) 95 01/30/20 04:00 97.8 70 18 122/60 (80) 92 01/30/20 00:00 98.6 76 24 150/71 (97) 92 01/29/20 21:00 Room Air 01/29/20 20:00 98.5 74 24 131/63 (85) 96 01/29/20 16:00 97.3 73 18 136/73 (94) 95 I&O Intake and Output 01/29/20 01/30/20 19:00 07:00 Intake Total 1132.5 ml 772.500 ml Balance 1132.5 ml 772.500 ml Intake Oral 720 ml IV Total 412.5 ml 412.500 ml Other 360 ml # Voids 3 2 Dressing: saturated Wound: other Drains: other Cardiovascular: RSR Respiratory: decreased breath sounds Abdomen: soft, non-tender, present bowel sounds Extremities: no edema, no tenderness, no cyanosis Laboratory Tests Test 01/30/20 05:15 White Blood Count 9.8 K/UL (4.8-10.8) Red Blood Count 4.34 M/UL (4.20-5.40) Hemoglobin 12.1 G/DL (12.0-16.0) Hematocrit 35.2 % (37.0-47.0) L Mean Corpuscular Volume 81 FL (80-99) Mean Corpuscular Hemoglobin 27.9 PG (27.0-31.0) Mean Corpuscular Hemoglobin Concent 34.3 G/DL (32.0-36.0) Red Cell Distribution Width 11.1 % (11.6-14.8) L Platelet Count 216 K/UL (150-450) Mean Platelet Volume 6.1 FL (6.5-10.1) L Neutrophils (%) (Auto) 74.5 % (45.0-75.0) Lymphocytes (%) (Auto) 15.1 % (20.0-45.0) L Monocytes (%) (Auto) 8.5 % (1.0-10.0) Eosinophils (%) (Auto) 0.8 % (0.0-3.0) Basophils (%) (Auto) 1.1 % (0.0-2.0) Sodium Level 136 MMOL/L (136-145) Potassium Level 3.6 MMOL/L (3.5-5.1) Chloride Level 101 MMOL/L (98-107) Carbon Dioxide Level 26 MMOL/L (21-32) Anion Gap 9 mmol/L (5-15) Blood Urea Nitrogen 11 mg/dL (7-18) Creatinine 0.4 MG/DL (0.55-1.30) L Estimat Glomerular Filtration Rate > 60 mL/min (>60) Glucose Level 172 MG/DL (74-106) H Calcium Level 9.1 MG/DL (8.5-10.1) Plan Problems: (1) Facial cellulitis Assessment & Plan: right facial abscess at jaw. neck okay. no fluctuance no drainage tender red will monitor on IV abx if develops abscess will be available for I&D. currently no abscess to drain skin break down noted but no pus or fluctuance still abx iv helping cont abx will monitor s/p I&D see note dressings daily and prn d/c planning There is infiltration of the subcutaneous fat of the right side of the anterior face, beginning at about the level of the alveolar ridge of the maxilla , and extending inferiorly into the submental region. This extends is likely laterally to midline. In the submental region, there is some involvement of the fat deep to the platysma muscle. No evidence of abscess demonstrated. There are prominent but not frankly enlarged lymph nodes in the submental region as well as in the anterior triangle. The nasopharynx, oropharynx, hypopharynx, and larynx are unremarkable. No prevertebral soft tissue swelling. There are a few small calcifications within the thyroid. The trachea and proximal esophagus are unremarkable. The included upper mediastinum is unremarkable. The included lung apices demonstrate mild hazy opacities Impression: Inflammatory change of the superficial subcutaneous fat as well as a slightly deeper fat, likely representing cellulitis given stated clinical history. No findings to suggest abscess. Nonspecific hazy apical pulmonary parenchymal opacities. Small thyroid calcifications Garry Correia Jan 30, 2020 14:32
--- NOTE | 2020-01-30 14:34 | Operative Note - PDOC ---
Operative Note Operative Note Date of Operation/Procedure: Jan 30, 2020 Pre-op Diagnosis: right jaw/facial abscess Procedure: I&D jaw/facial abscess Post-op Diagnosis: same as pre-op Surgeon: lazara correia Specimen: yes Complications: none Condition: stable Estimated Blood Loss: minimal Drains: none Implant(s) used?: No Indications for Procedure 54F with facial / jaw cellulitis now forming abscess. I&D indicated and recommended consent obtained Description of Procedure patient made comfortable at bedside. site on face cleaned with chlorhexidine, prepped, and draped. #11 scalpel used and small 1cm incision made over fluctuance where there is necrotic tissue. 3cc pus evacuated. culture sent wound cleaned and dressings applied. patient tolerated well Lazara Correia Jan 30, 2020 14:34
--- NOTE | 2020-01-30 15:56 | NUR ---
CASE MANAGEMENT:REVIEW CASE MANAGEMENT:REVIEW SI;RT JAW/CELLULITIS OF FACE. DM. HTN. S/P I&D JAW/FACIAL ABSCESS TODAY 98.6 76 24 150/71 92% ON RA BG 172 IS;VANCOMYCIN IV Q8 HRS ZOSYN IV Q8 HRS MORPHINE IV Q4 HRS PRN MED SURG STATUS DCP;FROM HOME PLAN;CONTINUE VANCOMYCIN DC ZOSYN WOUND CULTURE PENDING
[2020-01-30 16:00] VITALS: BP 128/77
--- NOTE | 2020-01-30 19:25 | NUR ---
NURSE NOTES: Received report from JUDY Conroy , pt is A/Ox4 , breaths is even regular and unlabored on RA, denies any pain . pt has a RT AC 20G with no i.v fluids, dressing on the RT side of face is clean and intact , bed in low locked position and call light with in reach, will continue to Monitor
--- NOTE | 2020-01-30 19:35 | NUR ---
HAND-OFF: Report given to Carole KIM.
[2020-01-30 20:00] VITALS: BP 143/74
[2020-01-31] VITALS: BP 137/70
[2020-01-31] MEDS: Vancomycin 1 GM in NS 275 ML IVPB SCH ×2 (00:18→08:36)
[2020-01-31 04:00] VITALS: BP 144/78
[2020-01-31] MEDS: NovoLOG Insulin Flexpen SUBQ SCH ×2 (05:43→12:34)
--- NOTE | 2020-01-31 07:40 | NUR ---
NURSE NOTES: Received report from JUDY Lam. Patient A&Ox4. On room air, no signs of distress or labored breathing. IV intact, patent, and saline locked. Denies pain. Bed in lowest position with call light in reach. Side rails up x2. Will continue with plan of care.
--- NOTE | 2020-01-31 07:56 | NUR ---
HAND-OFF: Report given to Carmita KIM.
[2020-01-31 08:00] VITALS: BP 142/70
[2020-01-31] MEDS: metFORMIN 500mg tab ORAL SCH (08:36)
[2020-01-31 12:00] VITALS: BP 143/76
--- NOTE | 2020-01-31 12:17 | Infectious Diseases Prog Note ---
Assessment/Plan Assessment/Plan IMPRESSION: 1. Cellulitis of face.Facial abscess s/p I & D 2. Diabetes mellitus with hyperglycemia. 3. Hypertension. RECOMMENDATION: Can be discharged with PO Doxycycline & Keflex X 7 days Case was D/W primary MD Subjective ROS Limited/Unobtainable: No Respiratory: Reports: no symptoms Cardiovascular: Reports: no symptoms Gastrointestinal/Abdominal: Reports: no symptoms Genitourinary: Reports: no symptoms Skin: Reports: other - had I & D of facial abscess Allergies: Coded Allergies: No Known Allergies (Unverified , 01/28/20) Objective Vital Signs Last 24 Hour Vital Signs Date Time Temp Pulse Resp B/P (MAP) Pulse Ox O2 Delivery O2 Flow Rate FiO2 01/31/20 09:00 Room Air 01/31/20 08:36 72 142/70 01/31/20 08:00 98.5 72 18 142/70 (94) 97 01/31/20 04:00 97.8 70 22 144/78 (100) 98 01/31/20 00:00 98.5 71 20 137/70 (92) 96 01/30/20 21:00 Room Air 01/30/20 20:00 98.1 80 20 143/74 (97) 96 01/30/20 16:00 98.5 74 20 128/77 (94) 98 Height (Feet): 5 Height (Inches): 2.00 Weight (Pounds): 165 General Appearance: no acute distress HEENT: mucous membranes moist Respiratory/Chest: lungs clear Cardiovascular: normal rate Abdomen: soft, non tender Extremities: no edema Skin: other - R chin wound, decreased surronding erythema Neurologic/Psychiatric: alert, oriented x 3, responsive Laboratory Tests Test 01/30/20 15:09 Vancomycin Level Trough 9.1 ug/mL (5.0-12.0) Current Medications Medications (Trade) Dose Ordered Sig/Velia Route PRN Reason Start Time Stop Time Status Last Admin Dose Admin Acetaminophen/ Hydrocodone Bitart ([place] 10/325) 1 tab Q4H PRN ORAL Pain Scale (3-7) 01/28/20 15:30 02/04/20 15:29 01/29/20 23:09 Amlodipine Besylate (Norvasc) 10 mg DAILY ORAL 01/28/20 14:00 02/27/20 13:59 01/31/20 08:36 Clonidine HCl (Catapres Tab) 0.1 mg Q4H PRN ORAL For High Blood Pressure 01/28/20 14:15 04/27/20 14:14 Dextrose (Dextrose 50%) 25 ml Q30M PRN IV Hypoglycemia 01/28/20 14:15 04/27/20 14:14 Dextrose (Dextrose 50%) 50 ml Q30M PRN IV Hypoglycemia 01/28/20 14:15 04/27/20 14:14 Insulin Aspart (NovoLOG) BEFORE MEALS AND HS SUBQ 01/28/20 16:30 04/27/20 16:29 01/31/20 05:43 Metformin HCl (Glucophage) 500 mg TWICE A DAY ORAL 01/28/20 14:00 02/27/20 13:59 01/31/20 08:36 Metoclopramide HCl (Reglan) 10 mg Q8H PRN ORAL Nausea & Vomiting 01/28/20 18:30 02/27/20 18:29 01/28/20 18:50 Morphine Sulfate (Morphine Sulfate) 5 mg Q4H PRN IVP Severe Pain (Pain Scale 7-10) 01/28/20 15:30 02/04/20 15:29 01/28/20 15:53 Ondansetron HCl (Zofran) 4 mg Q4H PRN IVP Nausea & Vomiting 01/29/20 12:30 02/28/20 12:29 01/29/20 12:53 Vancomycin HCl (Vanco rx to dose) 1 ea DAILY PRN MISC Per rx protocol 01/28/20 14:00 02/27/20 13:59 Vancomycin HCl 1 gm/Sodium Chloride 275 ml @ 183.708 mls/hr Q8H IVPB 01/29/20 16:00 02/03/20 15:59 01/31/20 08:36 Zolpidem Tartrate (Ambien) 5 mg HSPRN PRN ORAL Insomnia 01/28/20 14:00 02/04/20 13:59 Pedro Tanner MD Jan 31, 2020 12:16
--- NOTE | 2020-01-31 12:23 | General Progress Note ---
Assessment/Plan Problem List: (1) Facial cellulitis ICD Codes: L03.211 - Cellulitis of face SNOMED: 886065940 (2) DM (diabetes mellitus) ICD Codes: E11.9 - Type 2 diabetes mellitus without complications SNOMED: 06670058 (3) HTN (hypertension) ICD Codes: I10 - Essential (primary) hypertension SNOMED: 61390117 Assessment/Plan: DC today on po keflex and Doxi Discussed with ID Subjective Allergies: Coded Allergies: No Known Allergies (Unverified , 01/28/20) Subjective In NAD Objective Last 24 Hour Vital Signs Date Time Temp Pulse Resp B/P (MAP) Pulse Ox O2 Delivery O2 Flow Rate FiO2 01/31/20 09:00 Room Air 01/31/20 08:36 72 142/70 01/31/20 08:00 98.5 72 18 142/70 (94) 97 01/31/20 04:00 97.8 70 22 144/78 (100) 98 01/31/20 00:00 98.5 71 20 137/70 (92) 96 01/30/20 21:00 Room Air 01/30/20 20:00 98.1 80 20 143/74 (97) 96 01/30/20 16:00 98.5 74 20 128/77 (94) 98 Intake and Output 01/30/20 01/31/20 18:59 06:59 Intake Total 1520.000 ml Balance 1520.000 ml Intake Oral 860 ml IV Total 660.000 ml # Voids 4 3 Laboratory Tests 01/30/20 15:09: Vancomycin Level Trough 9.1 Height (Feet): 5 Height (Inches): 2.00 Weight (Pounds): 165 Curly Tanner MD Jan 31, 2020 12:23
--- NOTE | 2020-01-31 13:02 | NUR ---
*-* INSURANCE *-* UPDATED CLINICALS AND REVIEWS HAVE BEEN FAXED TO: Sola RUSSELL ph# [phone] fax#[phone] & ISATU Ref#[id number] #[phone] fax# [phone]
--- NOTE | 2020-01-31 13:30 | NUR ---
NURSE NOTES: Patient discharged home via private car. Discharge protocol followed.
--- NOTE | 2020-01-31 19:49 | Surgery Progress Note ---
Surgery Progress Note Subjective Procedure Performed I&D jaw/facial abscess Additional Comments late entry improved dressings removed at bedside today wound improved less pus does have small area of non viable tissue at base that will slough off discussed with patient d/c plan for today rx as per ID work note given by RN Objective Last 24 Hour Vital Signs Date Time Temp Pulse Resp B/P (MAP) Pulse Ox O2 Delivery O2 Flow Rate FiO2 01/31/20 12:00 97.8 70 18 143/76 (98) 98 01/31/20 09:00 Room Air 01/31/20 08:36 72 142/70 01/31/20 08:00 98.5 72 18 142/70 (94) 97 01/31/20 04:00 97.8 70 22 144/78 (100) 98 01/31/20 00:00 98.5 71 20 137/70 (92) 96 01/30/20 21:00 Room Air 01/30/20 20:00 98.1 80 20 143/74 (97) 96 I&O Intake and Output 01/30/20 01/31/20 19:00 07:00 Intake Total 1520.000 ml Balance 1520.000 ml Intake Oral 860 ml IV Total 660.000 ml # Voids 4 3 Dressing: saturated Wound: clean Cardiovascular: RSR Respiratory: clear Abdomen: soft, flat, non-tender, present bowel sounds Extremities: no edema, no tenderness Plan Problems: (1) Facial cellulitis Assessment & Plan: right facial abscess at jaw. neck okay. no fluctuance no drainage tender red will monitor on IV abx if develops abscess will be available for I&D. currently no abscess to drain skin break down noted but no pus or fluctuance still abx iv helping cont abx will monitor s/p I&D see note dressings daily and prn d/c planning There is infiltration of the subcutaneous fat of the right side of the anterior face, beginning at about the level of the alveolar ridge of the maxilla , and extending inferiorly into the submental region. This extends is likely laterally to midline. In the submental region, there is some involvement of the fat deep to the platysma muscle. No evidence of abscess demonstrated. There are prominent but not frankly enlarged lymph nodes in the submental region as well as in the anterior triangle. The nasopharynx, oropharynx, hypopharynx, and larynx are unremarkable. No prevertebral soft tissue swelling. There are a few small calcifications within the thyroid. The trachea and proximal esophagus are unremarkable. The included upper mediastinum is unremarkable. The included lung apices demonstrate mild hazy opacities Impression: Inflammatory change of the superficial subcutaneous fat as well as a slightly deeper fat, likely representing cellulitis given stated clinical history. No findings to suggest abscess. Nonspecific hazy apical pulmonary parenchymal opacities. Small thyroid calcifications Garry Correia Jan 31, 2020 19:49
--- NOTE | 2020-02-02 17:25 | Discharge Summary ---
Discharge Summary Discharge Summary _ DATE OF ADMISSION: 01/28/2020 DATE OF DISCHARGE: 01/31/2020 DISCHARGED BY: Dr. Curly Tanner CONSULTANTS: Dr. Garry Tanner BRIEF HOSPITAL COURSE: Patient is a 54-year-old female, who had redness over the right side of her chin for 3 days. The patient apparently popped a pimple and developed swelling and redness that became worse, extending to the right side of the neck. She has a medical history of diabetes, hypertension and anemia. Upon evaluation at ED, blood work did not show any leukocytosis. Hemoglobin and hematocrit were stable. Electrolytes were normal. Physical exam was consistent with cellulitis, however there was edema and erythema tracking down into the submandibular region. Neck CT showed inflammatory changes of the superficial subcutaneous fat as well as a slightly deeper fat, likely representing cellulitis. No findings to suggest abscess. She was started on IV antibiotics. She was then admitted for facial cellulitis. She underwent surgical evaluation. There was no fluctuance noted. No drainage. She was continued empirically on IV vancomycin and Zosyn. Patient was observed on response with IV antibiotics. She was given pain management. Blood glucose was monitored. She was continued on metformin. She was placed on insulin sliding scale. Hemoglobin A1c 12.9. She was given Norvasc for high blood pressure. Patient started to have pus coming out from the wound. Wound developed fluctuance. On 01/30/2020, patient underwent incision and drainage of the jaw/facial abscess. 3 cc of pus was evacuated. Patient tolerated procedure well. Cultures were sent. Patient will E. coli pneumonia Blood cultures did not isolate any growth. Patient was afebrile. No leukocytosis. Patient was then cleared for discharge to continue p.o. Keflex and doxycycline as outpatient. FINAL DIAGNOSES: Facial cellulitis Diabetes mellitus Hypertension DISPOSITION: Patient was discharged home. DISCHARGE MEDICATIONS: Refer to Discharge Medication List. I have been assigned to complete a discharge summary on this account, I was not involved with the patient's management.--JULY Adams Jacqueline Robles NP Feb 02, 2020 17:25
--- NOTE | 2020-02-03 14:26 | NUR ---
*-* INSURANCE *-* DISCHARGE SUMMARY HAS BEEN FAXED TO: Sola RUSSELL ph# [phone] fax#[phone] & ISATU Ref#[id number] #[phone] fax# [phone]
== END 2020-01-31 13:29 | disposition home or self-care (01) | DRG 603 ==
LOC: EMR 07:30 → 4E 12:05 → EDBEDREQ 13:07
PROC: 0H91XZZ Drainage of Face Skin, External Approach (ICD-10-PCS; principal; 2020-01-30)
DX: L03.211 Cellulitis of face (principal); L02.01 Cutaneous abscess of face; E11.65 Type 2 diabetes mellitus with hyperglycemia; I10 Essential (primary) hypertension; Z79.84 Long term (current) use of oral hypoglycemic drugs
CPT/HCPCS: 36415; 70491; 80048; 80053; 80061; 80202; 83036; 83735; 85025; 87040; 96361; 96365; 96375; 96376; 99285; J1815; J2405; J7030

== ENCOUNTER 2020-09-20 19:00 | Inpatient (IN) | payer OTHER ==
[~2020-09-20] VITALS: Ht 160 cm; Wt 68.0 kg
[~2020-09-20 19:00] MED LIST: AMLODIPINE BES2.5 MG ORAL; METFORMIN HCL500 M1 ORAL
--- NOTE | 2020-09-20 19:14 | NUR ---
ED Nurse Note: Pt ambulated to ED from home c/o 101/10 abdominal pain for several hours with N, pt is A&OX4, VSS. Pt placed on field counsel
[2020-09-20 19:27] LABS: APPEARANCE,URINE SLIGHTLY CLOUDY; BILIRUBIN, URINE NEGATIVE (NEGATIVE); COLOR,URINE PALE YELLOW; GLUCOSE, URINE (UA) 4+ (NEGATIVE); KETONES,URINE 1+ (NEGATIVE); LEUKOCYTE ESTERASE ,URINE 2+ (NEGATIVE); NITRITE,URINE NEGATIVE (NEGATIVE); PH,URINE 6.5 (4.5-8.0); PROTEIN,URINE 2+ (NEGATIVE); UROBILINOGEN,URINE NORMAL MG/DL (0.0-1.0)
[2020-09-20] MEDS ORDERED: Omnipaque-300 100ml vial INJ PRN (19:30)
[2020-09-20] MEDS ORDERED: Morphine Sulfate 4mg/ml Inj (IV USE ONLY) IVP ONE ×2 (19:30→21:15)
--- NOTE | 2020-09-20 19:40 | Emergency Room Report ---
History of Present Illness General Chief Complaint: Abdominal Pain Source: Patient (Robert Mac MD) Present Illness HPI 55-year-old female presents to ED for abdominal pain. Started this morning. Dull, 8 out of 10, nonradiating. Notes nausea, denies vomiting. Denies chest pain. States some diarrhea. No fevers or chills. No other aggravating relieving factors. Denies any other associated symptoms (Robert Mac MD) Allergies: Coded Allergies: No Known Allergies (Unverified , 01/28/20) COVID-19 Screening Contact w/high risk pt: No Recent Travel to affected area: No Experienced COVID-19 symptoms?: No COVID-19 Testing performed MARKET RESEARCH ANALYST: No (Robert Mac MD) Patient History Past Surgical History: none Pertinent Family History: none Social History: Denies: smoking, alcohol use, drug use Now: No Immunizations: UTD Reviewed Nursing Documentation: PMH: Agreed; PSxH: Agreed (Robert Mac MD) Nursing Documentation-PMH Hx Cardiac Problems: Yes Hx Hypertension: Yes Hx Diabetes: Yes Hx Cancer: No Hx Gastrointestinal Problems: No Hx Neurological Problems: No (Robert Mac MD) Review of Systems All Other Systems: negative except mentioned in HPI (Robert Mac MD) Physical Exam Vital Signs Date Time Temp Pulse Resp B/P (MAP) Pulse Ox O2 Delivery O2 Flow Rate FiO2 09/20/20 19:06 98.4 103 22 124/71 (88) 96 Room Air Sp02 EP Interpretation: reviewed, normal General Appearance: no apparent distress, alert, GCS 15, non-toxic Head: normocephalic, atraumatic Eyes: bilateral eye normal inspection, bilateral eye PERRL ENT: hearing grossly normal, normal pharynx, no angioedema, normal voice Neck: full range of motion, supple/symm/no masses Respiratory: chest non-tender, lungs clear, normal breath sounds, speaking full sentences Cardiovascular #1: regular rate, rhythm, no edema Cardiovascular #2: 2+ carotid (R), 2+ carotid (L), 2+ radial (R), 2+ radial (L), 2+ dorsalis pedis (R), 2+ dorsalis pedis (L) Gastrointestinal: normal bowel sounds, soft, non-distended, no guarding, no rebound, tenderness Rectal: deferred Genitourinary: normal inspection, no CVA tenderness Musculoskeletal: back normal, normal range of motion, gait/station normal, non- tender Neurologic: alert, motor strength/tone normal, oriented x3, sensory intact, responsive, speech normal Psychiatric: judgement/insight normal, memory normal, mood/affect normal, no suicidal/homicidal ideation Reflexes: 3+ bicep (R), 3+ bicep (L), 3+ tricep (R), 3+ tricep (L), 3+ knee (R), 3+ knee (L) Skin: no rash Lymphatic: no adenopathy (Robert Mac MD) Medical Decision Making Diagnostic Impression: Primary Impression: Pyelonephritis Additional Impression: Hyperglycemia due to type 1 diabetes mellitus ER Course This patient was signed out to me. She presents with abdominal pain with nausea and vomiting. She has pyelonephritis. Antibiotics given. Her glucose is also out of control. Probably worsened because of infection. Patient was pending transfer versus admit based on her insurance. She is approved to be admitted here. I contacted Dr. Gimenez for admission. (Srikanth Malhotra MD) Last Vital Signs Date Time Temp Pulse Resp B/P (MAP) Pulse Ox O2 Delivery O2 Flow Rate FiO2 09/20/20 19:06 98.4 103 22 124/71 (88) 96 Room Air (Robert Mac MD) Status: improved (Srikanth Malhotra MD) Disposition: ADMITTED INPATIENT Condition: Serious Referrals: NOT CHOSEN IPA/,REFERRING (PCP) Robert Mac MD Sep 20, 2020 19:40 Srikanth Malhotra MD Sep 20, 2020 22:19
[2020-09-20 19:44] VITALS: BP 124/71
[2020-09-20 20:10] LABS: BASOPHILS % (AUTO) 0.9 % (0.0-2.0); HEMATOCRIT 40.6 % (37.0-47.0); HEMOGLOBIN 13.2 G/DL (12.0-16.0); LYMPHOCYTES % (AUTO) 7.4 % (20.0-45.0); MEAN CORPUSCULAR VOLUME 84 FL (80-99); MONOCYTES % (AUTO) 7.2 % (1.0-10.0); NEUTROPHILS % (AUTO) 84.4 % (45.0-75.0); PLATELET COUNT 326 K/UL (150-450); RED BLOOD COUNT 4.83 M/UL (4.20-5.40); RED CELL DISTRIBUTION WIDTH 12.3 % (11.6-14.8); WHITE BLOOD COUNT 12.1 K/UL (4.8-10.8)
[2020-09-20 20:21] LABS: CALCIUM 9.1 MG/DL (8.5-10.1); POTASSIUM 3.9 MMOL/L (3.5-5.1)
[2020-09-20 20:26] LABS: ALBUMIN 2.5 G/DL (3.4-5.0); ALBUMIN/GLOBULIN RATIO 0.5 (1.0-2.7); BILIRUBIN,TOTAL 0.3 MG/DL (0.2-1.0)
--- NOTE | 2020-09-20 20:27 | NUR ---
ED Nurse Note: Pt to CT
[2020-09-20] MEDS ORDERED: Insulin Human Regular 100units/ml 3ml IV ONE (20:30)
[2020-09-20] MEDS ORDERED: cefTRIAXone 1 GM in NS 55 ML IVPB ONE (20:30)
--- NOTE | 2020-09-20 20:58 | Diagnostic Imaging Report ---
EXAM: CT Abdomen and Pelvis With Intravenous Contrast CLINICAL HISTORY: ABD PAIN TECHNIQUE: Axial computed tomography images of the abdomen and pelvis with intravenous contrast. CTDI is 5.3 mGy and DLP is 304.20 mGy-cm. One or more of the following dose reduction techniques were used: automated exposure control, adjustment of the mA and/or kV according to patient size, use of iterative reconstruction technique. COMPARISON: None. FINDINGS: Lung bases: Unremarkable. No mass. No consolidation. ABDOMEN: Liver: Unremarkable. No mass. Gallbladder and bile ducts: Unremarkable. No calcified stones. No ductal dilation. Pancreas: Unremarkable. No mass. No ductal dilation. Spleen: Unremarkable. No splenomegaly. Adrenals: Unremarkable. No mass. Kidneys and ureters: Mild left renal engorgement. There is delayed renal enhancement as compared to the right with areas of patchy peripheral hypoenhancement. Mild perinephric fat stranding. No hydronephrosis. Stomach and bowel: Unremarkable. No obstruction. No mucosal thickening. PELVIS: Appendix: Normal appendix. Bladder: Unremarkable. No mass. Reproductive: Unremarkable as visualized. ABDOMEN and PELVIS: Intraperitoneal space: Unremarkable. No free air. No significant fluid collection. Bones/joints: No acute fracture. No dislocation. Soft tissues: Unremarkable. Vasculature: Unremarkable. No abdominal aortic aneurysm. Lymph nodes: Unremarkable. No enlarged lymph nodes. IMPRESSION: Left renal engorgement with global delayed enhancement and patchy areas of non-enhancement. Findings likely represent pyelonephritis in the appropriate clinical setting. Differential also includes infiltrative process such as lymphoma. Clinical correlation is recommended.
[2020-09-20] MEDS ORDERED: Ketorolac 30mg Inj IV ONE (21:15)
[2020-09-20 21:45] VITALS: BP 132/75
[2020-09-20] MEDS ORDERED: Morphine Sulfate 4mg/ml Inj (IV USE ONLY) IVP PRN (22:30)
[2020-09-20] MEDS ORDERED: ZOCOR20 M1 ORAL (22:35)
[2020-09-20] MEDS ORDERED: [UNRECOGNIZED DRUG - OTHER] PO (22:35)
[2020-09-20] MEDS ORDERED: BENAZEPRIL HCL10 MG ORAL (22:36)
[2020-09-20] MEDS ORDERED: GLIPIZIDE5 MG ORAL (22:36)
[2020-09-20] MEDS ORDERED: CAPTOPRIL25 M1 PO (22:37)
[2020-09-20] MEDS ORDERED: [UNRECOGNIZED DRUG - OTHER] PO (22:39)
--- NOTE | 2020-09-20 23:05 | NUR ---
TRANSFER TO FLOOR: Patient transferred to as ordered, per Dr Gimenez. Report given to JUDY Casanova. Belongings and medications given to . Family and or S/O informed of transfer.
[2020-09-20 23:30] VITALS: BP 149/70
--- NOTE | 2020-09-20 23:30 | NUR ---
NURSE NOTES: Received report from [facility]. Pt arrived @ 2320 via rney. AAO x 4, on room air, ambulatory. Pt has L ABD pain 7/10 and nausea. IV site intact and patent. Vitals stable. Skin is intact. Orientation given to the facility and room. Reviewed all belongings and home meds. Bed locked, lowest position, alarm on, side rails up, call light within reach. Will continue to monitor.
--- NOTE | 2020-09-21 00:40 | NUR ---
NURSE NOTES: Dr. Stevens made rounding and ordered insulin for DM.
[2020-09-21 04:00] VITALS: BP 153/78
[2020-09-21] MEDS: NovoLOG Insulin Flexpen SUBQ SCH ×7 (05:38→21:00)
[2020-09-21] MEDS ORDERED: NovoLOG Insulin Flexpen SUBQ SCH (06:30)
--- NOTE | 2020-09-21 06:33 | General Progress Note ---
Subjective Allergies: Coded Allergies: No Known Allergies (Unverified , 01/28/20) All Systems: reviewed and negative except above Subjective events noted evaluated by Dr Stevens over the weekend Item Value Date Time Bedside Blood Glucose 229 mg/dl H 09/21/20 0538 Bedside Blood Glucose 208 mg/dl H 09/20/20 2223 Objective Last 24 Hour Vital Signs Date Time Temp Pulse Resp B/P (MAP) Pulse Ox O2 Delivery O2 Flow Rate FiO2 09/21/20 04:00 96.0 74 20 153/78 (103) 95 09/21/20 00:18 Room Air 09/20/20 23:30 97.5 78 20 149/70 (96) 98 09/20/20 23:05 98.4 78 18 132/75 99 Room Air 09/20/20 21:45 98.4 78 18 132/75 99 Room Air 09/20/20 21:40 98.4 09/20/20 21:40 98.4 09/20/20 20:01 98.4 09/20/20 19:44 103 22 Room Air 09/20/20 19:44 98.4 103 22 124/71 96 Room Air 09/20/20 19:06 98.4 103 22 124/71 (88) 96 Room Air Intake and Output 09/20/20 09/21/20 19:00 07:00 Intake Total 240 ml Balance 240 ml Intake Oral 240 ml # Voids 1 # Bowel Movements 1 Laboratory Tests 09/20/20 19:15: White Blood Count 12.1H, Red Blood Count 4.83, Hemoglobin 13.2, Hematocrit 40.6, Mean Corpuscular Volume 84, Mean Corpuscular Hemoglobin 27.4, Mean Corpuscular Hemoglobin Concent 32.5, Red Cell Distribution Width 12.3, Platelet Count 326, Mean Platelet Volume 6.4L, Neutrophils (%) (Auto) 84.4H, Lymphocytes (%) (Auto) 7.4L, Monocytes (%) (Auto) 7.2, Eosinophils (%) (Auto) 0.0, Basophils (%) (Auto) 0.9, Sodium Level 129L, Potassium Level 3.9, Chloride Level 93L, Carbon Dioxide Level 28, Anion Gap 8, Blood Urea Nitrogen 16, Creatinine 1.0, Estimat Glomerular Filtration Rate 58.0, Glucose Level 432H, Calcium Level 9.1, Total Bilirubin 0.3, Aspartate Amino Transf (AST/SGOT) 17, Alanine Aminotransferase (ALT/SGPT) 29, Alkaline Phosphatase 214H, Total Protein 8.0, Albumin 2.5L, Globulin 5.5, Albumin/Globulin Ratio 0.5L, Lipase 161 09/20/20 19:20: Urine Color Pale yellow, Urine Appearance Slightly cloudy, Urine pH 6.5, Urine Specific [place] 1.010, Urine Protein 2+H, Urine Glucose (UA) 4+H, Urine Ketones 1+H, Urine Blood 4+H, Urine Nitrite Negative, Urine Bilirubin Negative, Urine Urobilinogen Normal, Urine Leukocyte Esterase 2+H, Urine RBC 15-20H, Urine WBC 60-80H, Urine Squamous Epithelial Cells ModerateH, Urine Bacteria ModerateH 09/21/20 05:18: POC Whole Blood Glucose [Pending] 09/21/20 06:22: White Blood Count [Pending], Red Blood Count [Pending], Hemoglobin [Pending], Hematocrit [Pending], Mean Corpuscular Volume [Pending], Mean Corpuscular Hemoglobin [Pending], Mean Corpuscular Hemoglobin Concent [Pending], Red Cell Distribution Width [Pending], Platelet Count [Pending], Mean Platelet Volume [Pending], Neutrophils (%) (Auto) [Pending], Lymphocytes (%) (Auto) [Pending], Monocytes (%) (Auto) [Pending], Eosinophils (%) (Auto) [Pending], Basophils (%) (Auto) [Pending], Sodium Level [Pending], Potassium Level [Pending], Chloride Level [Pending], Carbon Dioxide Level [Pending], Blood Urea Nitrogen [Pending], Creatinine [Pending], Estimat Glomerular Filtration Rate [Pending], Glucose Level [Pending], Calcium Level [Pending], Total Bilirubin [Pending], Aspartate Amino Transf (AST/SGOT) [Pending], Alanine Aminotransferase (ALT/SGPT) [Pending], Alkaline Phosphatase [Pending], Total Protein [Pending], Albumin [Pending], Globulin [Pending], Hemoglobin A1c [Pending] Height (Feet): 5 Height (Inches): 3.00 Weight (Pounds): 150 Neck: normal alignment Cardiovascular: normal peripheral pulses Respiratory/Chest: lungs clear Abdomen: normal bowel sounds Objective Current Medications Medications (Trade) Dose Ordered Sig/Velia Route PRN Reason Start Time Stop Time Status Last Admin Dose Admin Acetaminophen (Tylenol) 650 mg Q4H PRN ORAL For Pain 09/21/20 00:00 10/21/20 00:00 09/21/20 02:26 Acetaminophen (Tylenol) 650 mg Q4HR PRN ORAL TEMP>100.5 09/20/20 22:30 Dextrose (Dextrose 50%) 25 ml Q30M PRN IV Hypoglycemia 09/21/20 00:45 12/20/20 00:44 Dextrose (Dextrose 50%) 50 ml Q30M PRN IV Hypoglycemia 09/21/20 00:45 12/20/20 00:44 Insulin Aspart (NovoLOG) BEFORE MEALS AND HS SUBQ 09/21/20 06:30 12/20/20 06:29 09/21/20 05:38 Insulin Aspart (NovoLOG) 10 units NOVOTIAC SUBQ 09/21/20 06:30 12/20/20 06:29 09/21/20 05:38 Insulin Detemir (Levemir) 15 units Q12HR SUBQ 09/21/20 09:00 12/20/20 08:59 Iohexol (OMNIPAQUE-300 100ml) 100 ml NOW PRN INJ Radiology Procedure 09/20/20 19:30 09/22/20 19:29 Metformin HCl (Glucophage) 500 mg BIAC ORAL 09/21/20 16:30 10/21/20 16:29 Ondansetron HCl (Zofran) 4 mg Q6H PRN IVP Nausea & Vomiting 09/21/20 00:00 10/21/20 00:00 09/21/20 02:25 Assessment/Plan Problem List: (1) DM (diabetes mellitus) ICD Codes: E11.9 - Type 2 diabetes mellitus without complications SNOMED: 46949660 (2) Pyelonephritis ICD Codes: N12 - Tubulo-interstitial nephritis, not specified as acute or chronic SNOMED: 86708585, 50462152 (3) HTN (hypertension) ICD Codes: I10 - Essential (primary) hypertension SNOMED: 20407971 Assessment/Plan: Levemir 15 units bid Novolog 10 units ac tid Metformin 500 mg bid Novolog sliding scale ac / hs Wayne Geiger MD Sep 21, 2020 06:33
[2020-09-21 06:54] LABS: BASOPHILS % (AUTO) 0.6 % (0.0-2.0); EOSINOPHILS % (AUTO) 0.2 % (0.0-3.0); HEMATOCRIT 37.6 % (37.0-47.0); HEMOGLOBIN 11.9 G/DL (12.0-16.0); MEAN CORPUSCULAR VOLUME 87 FL (80-99); MONOCYTES % (AUTO) 5.8 % (1.0-10.0); NEUTROPHILS % (AUTO) 84.4 % (45.0-75.0); PLATELET COUNT 281 K/UL (150-450); RED BLOOD COUNT 4.34 M/UL (4.20-5.40); RED CELL DISTRIBUTION WIDTH 11.9 % (11.6-14.8); WHITE BLOOD COUNT 9.4 K/UL (4.8-10.8)
[2020-09-21 07:02] LABS: ALANINE AMINOTRANSFERASE 22 U/L (12-78); ALBUMIN/GLOBULIN RATIO 0.4 (1.0-2.7); ALKALINE PHOSPHATASE 148 U/L (46-116); ANION GAP 4 mmol/L (5-15); ASPARTATE AMINO TRANSFERASE 15 U/L (15-37); BILIRUBIN,TOTAL 0.4 MG/DL (0.2-1.0); BLOOD UREA NITROGEN 11 mg/dL (7-18); CARBON DIOXIDE 28 MMOL/L (21-32); CHLORIDE 102 MMOL/L (98-107); CREATININE 0.7 MG/DL (0.55-1.30); POTASSIUM 3.7 MMOL/L (3.5-5.1); SODIUM 134 MMOL/L (136-145)
--- NOTE | 2020-09-21 07:03 | NUR ---
NURSE HAND-OFF: Important Events on Shift:pain, nausea, admission Patient Status: in pain Diet: clear liquid Pending Orders: N Pending Results/Labs:AM labs Pending MD notification: Latest Vital Signs: Temperature 96.0 , Pulse 74 , B/P 153 /78 , Respiratory Rate 20 , O2 SAT 95 , Room Air, O2 Flow Rate . Vital Sign Comment: [] Latest Kam Fall Score: 0 Fall Risk: Low Risk Safety Measures: Call light Within Reach, Bed Alarm Zone 1, Side Rails Side Rails x2, Bed position Low and Locked. Fall Precautions: Yellow Socks Patient Fall Education Addendum: 09/21/20 at 740 by ALEJANDRO COBURN RN RN HAND-OFF: Report given to Carole. Addendum: 09/21/20 at 0741 by ALEJANDRO COBURN RN RN HAND-OFF: Report given to Carole.
--- NOTE | 2020-09-21 07:15 | Consultation ---
DATE OF CONSULTATION: 09/20/2020 NOTE: POOR AUDIO ENDOCRINOLOGY CONSULTATION CONSULTING PHYSICIAN: Benedicto Stevens MD REFERRING PHYSICIAN: Watson Gimenez MD REASON FOR CONSULTATION: I was asked to see this 55-year-old female by Dr. Watson Gimenez in Endocrinology consultation for evaluation and management of type 2 diabetes mellitus out of control. Admitted with acute pyelonephritis and hypoglycemia. 50 mg b.i.d. FAMILY HISTORY: Unremarkable. PERSONAL HISTORY: Unremarkable. REVIEW OF SYSTEMS: Unremarkable. PHYSICAL EXAMINATION: GENERAL: The patient is in no acute distress. VITAL SIGNS: Blood pressure , pulse 78, respiratory rate 18, temperature . HEAD AND NECK: Unremarkable. No jugular venous distention. LUNGS: Clear. HEART: Distant. ABDOMEN: Obese. Bowel sounds present. EXTREMITIES: . LABORATORY DATA: . ASSESSMENT: 1. Diabetes type 2, out of control. 2. Acute pyelonephritis . PLAN: b.i.d. Discontinue . Benedicto Stevens M.D. DR: JHONY JOB#: [id number] CC:
--- NOTE | 2020-09-21 07:20 | NUR ---
NURSE NOTES: received report from Jocelyne KIM, rounds made ,pt awake a/ox4,breaths regular unlabored on RA, no s/s of distress . PT has a Rt AC 20G locked ,bed in low locked position,side rails upX2,call Light with in reach will continue with plan of care
[2020-09-21 08:00] VITALS: BP 146/61
[2020-09-21] MEDS: Levemir Flexpen SUBQ SCH ×2 (10:00→21:00)
[2020-09-21 12:00] VITALS: BP 142/66
--- NOTE | 2020-09-21 14:27 | NUR ---
CASE MANAGEMENT:INITIAL REVIEW 55 YR OLD FEMALE FROM HOME CC;ABDOMINAL PAIN SI;PYELONEPHRITIS. HYPERGLYCEMIA. 98.4 103 22 132/75 96% ON RA WBC 12.1 NA 129 CL 93 BG 432 ALP 214 ALB 2.5 UA+ PROTEIN, GLUCOSE, KETONES, BLOOD, LEUKOCYTE ESTERASE, RBC, WBC, SQUAMOUS EPITH CELLS, BACTERIA URINE CX ~ + GRAM NEG JOHN ABD/PELVIS CT ~ Left renal engorgement with global delayed enhancement and patchy areas of non-enhancement. Findings likely represent pyelonephritis in the appropriate clinical setting. Differential also includes infiltrative process such as lymphoma. IS;ZOFRAN IV PEPCID IV MORPHINE IV X2 IVF NS BOLUS ROCEPHIN IV INSULIN HUMAN REGULAR IV TORADOL IV ADMITTED TO MED SURG MED SURG STATUS DCP;FROM HOME
--- NOTE | 2020-09-21 15:00 | NUR ---
NURSE NOTES: pt c/o of constipation that is causing her abd discomfort and also requested for stronger pain medication , Md notified,orders received and carried. Called and left msg for DR Figueroa for pain medication orders
[2020-09-21] MEDS ORDERED: Milk of Magnesia 30ml Ud ORAL PRN (15:45)
[2020-09-21 16:00] VITALS: BP 139/69
[2020-09-21] MEDS ORDERED: metFORMIN 500mg tab ORAL SCH ×2 (16:30)
[2020-09-21] MEDS: Docusate 100mg cap ORAL SCH (17:12)
--- NOTE | 2020-09-21 18:14 | History and Physical Report ---
DATE OF ADMISSION: 09/20/2020 HISTORY OF PRESENT ILLNESS: The patient is here because of history of diabetes type 1, admitted for pyelonephritis, have been complaining of flank and abdominal pain for a couple of days. The patient also has leukocytosis and also admitted for hyperglycemia, not in DKA. The patient does have some nausea. No vomiting. No constipation. Denies fever or chills. Denies dysuria. Denies cough. PAST MEDICAL HISTORY: Significant for NIDDM, hypertension, hyperlipidemia. PAST SURGICAL HISTORY: None. ALLERGIES: No known allergies. FAMILY HISTORY: He does have history of diabetes and hypertension. SOCIAL HISTORY: Denies history of smoking, alcohol, or illicit drugs. MEDICATIONS: Captopril, glipizide, metformin, and simvastatin. REVIEW OF SYSTEMS: HEENT: Denies headaches. RESPIRATORY: Denies shortness of breath. Denies cough. CARDIOVASCULAR: No chest pain. Denies orthopnea. GASTROINTESTINAL: Reports abdominal pain and flank pain for a couple of days, associated with nausea. No constipation. EXTREMITIES: Denies pain in lower extremities. NEUROLOGIC: Denies any change in speech pattern. PHYSICAL EXAMINATION: VITAL SIGNS: Temperature is 98.4, pulse is 79, blood pressure 146/61. HEENT: PERRLA. NECK: Supple. No lymphadenopathy CHEST: Clear to auscultation CARDIOVASCULAR: Regular rate and rhythm. No murmurs or extra sounds. GASTROINTESTINAL: Positive bowel sounds. No organomegaly. Abdomen is soft, nontender. EXTREMITIES: No edema. He is able to move his extremities. Reflexes in both sides. Moves all four extremities. LABORATORY DATA: WBC of 12.1, hemoglobin 13, platelets of 326. Sodium 134, potassium 3.7, BUN of 11, creatinine 0.7, glucose of 231. ASSESSMENT/PLAN: NIDDM, elevated sugar, pyelonephritis, leukocytosis, flank pain due to pyelonephritis. I have consulted with Dr. Muller, Dr. Wayne Geiger, for diabetes management as well as Dr. Pedro Tanner for management and for antibiotic treatment of pyelonephritis, and Dr. Muller has also been consulted for abdominal pain workup. Watson Gimenez M.D. DR: JOCELYN JOB#: [id number] CC:
--- NOTE | 2020-09-21 18:58 | NUR ---
NURSE HAND-OFF: Important Events on Shift:pain management Patient Status: stable Diet: clear liquid Pending Orders: Pending Results/Labs: Pending MD notification: Latest Vital Signs: Temperature 98.1 , Pulse 76 , B/P 139 /69 , Respiratory Rate 18 , O2 SAT 96 , Room Air, O2 Flow Rate . Vital Sign Comment: Latest Kam Fall Score: 0 Fall Risk: Low Risk Safety Measures: Call light Within Reach, Bed Alarm Zone 2, Side Rails Side Rails x2, Bed position Low and Locked. Fall Precautions: Yellow Socks Patient Fall Education Report given to cristian KIM
--- NOTE | 2020-09-21 19:30 | Consultation ---
DATE OF CONSULTATION: 09/21/2020 INFECTIOUS DISEASES CONSULTATION CONSULTING PHYSICIAN: Pedro Tanner MD PRIMARY ATTENDING PHYSICIAN: Watson Gimenez MD REASON FOR CONSULTATION: Sepsis, pyelonephritis. HISTORY OF PRESENT ILLNESS: This is an 55-year-old female admitted yesterday from home complaining of abdominal pain, nausea. Abdominal pain is in left flank, 8/10, dull. The patient had leukocytosis and tachycardia. WBC was 12.1. Heart rate was 103. She had elevated blood sugar to 432. PAST MEDICAL HISTORY: Significant for diabetes mellitus type 2 for 20 years, hypertension. The patient had admission to [facility] in the end of December with facial cellulitis. ALLERGIES: No known drug allergies. MEDICATIONS: Ceftriaxone, metformin, Levemir insulin, Zofran, Tylenol. SOCIAL HISTORY: . Lives at home. No history of alcohol, drug abuse, or smoking. REVIEW OF SYSTEMS: No fever. No chills. Nausea. No vomiting. No coughing. No shortness of breath. Has left flank pain. No dysuria. PHYSICAL EXAMINATION: VITAL SIGNS: Temperature 98.4, pulse 79, blood pressure is 146/61. GENERAL APPEARANCE: Seems to have normal weight. HEAD AND NECK: [place] conjunctivae. HEART: Normal rate. LUNGS: Clear. ABDOMEN: Soft. CVA tenderness in the left side. EXTREMITIES: No edema NEUROLOGIC: Awake, alert, oriented x3. LABORATORY AND DIAGNOSTIC DATA: WBC today 9.4, hemoglobin 11.9, hematocrit 37.6, and platelets 281. Sodium 134, potassium 3.7, chloride 102, bicarb 28, BUN 11, creatinine 0.7, glucose 231. Hemoglobin A1c 14.3. Urine culture growing gram-negative rods. UA showed wbc's 60-80, nitrite negative, blood 4+, glucose 4+. CT scan of the abdomen and pelvis showed left kidney engorgement. Findings represent pyelonephritis. IMPRESSION: 1. Sepsis with tachycardia and leukocytosis, improving. 2. Left-sided pyelonephritis. 3. Diabetes mellitus with hyperglycemia. 4. Hypertension. RECOMMENDATIONS: We will continue ceftriaxone. We will follow up the cultures. At the end of my exam I thank Dr. Gimenez for involving me in the care of this patient. Pedro Tanner M.D. DR: Cassy JOB#: [id number] CC: SHANIKA
[2020-09-21 20:00] VITALS: BP 133/72
[2020-09-21] MEDS: cefTRIAXone 1 GM in D5W 55 ML IVPB SCH (20:54)
[2020-09-21] MEDS ORDERED: cefTRIAXone 1 GM in D5W 55 ML IVPB SCH (21:00)
[2020-09-22] VITALS (7 sets, daily range): BP systolic 122–141; BP diastolic 64–74
--- NOTE | 2020-09-22 00:15 | Consultation ---
DATE OF CONSULTATION: 09/21/2020 GASTROENTEROLOGY CONSULTATION CONSULTING PHYSICIAN: Katalina Muller MD. CHIEF COMPLAINT: I was asked to see this patient by Dr. Watson Gimenez for evaluation of abdominal pain. HISTORY OF PRESENT ILLNESS: The patient is a 55-year-old woman with multiple medical problems including diabetes, who is admitted to the hospital due to history of nausea, but no vomiting. She has no diarrhea, constipation, but she does have left lower quadrant abdominal pain. She has felt some dizziness. She has never had endoscopy or colonoscopy in the past. She came to the hospital where evaluation of the imaging studies showed left-sided pyelonephritis. She has been evaluated by Infectious Disease and has been placed on antibiotics. PAST MEDICAL HISTORY: History of diabetes, hypertension, hyperlipidemia. PAST SURGICAL HISTORY: None. ALLERGIES: None. FAMILY HISTORY: Negative for diabetes and hypertension. SOCIAL HISTORY: The patient does not smoke or drink alcohol or use drugs. MEDICATIONS: See chart list for details. REVIEW OF SYSTEMS: Otherwise negative. PHYSICAL EXAMINATION: GENERAL: A well-developed, well-nourished woman, seen in her room. HEENT: Normocephalic and atraumatic. Sclerae anicteric. Oropharynx clear. NECK: Supple. CHEST: Clear to auscultation. CARDIOVASCULAR: Regular rate. ABDOMEN: Soft. There is a left-sided abdominal discomfort on palpation, especially in the left lower quadrant. There is however no guarding or rebound. EXTREMITIES: Revealed no edema. LABORATORY DATA: Noted. ASSESSMENT: This patient presents with left-sided abdominal pain, worse in the left lower quadrant. In the setting of supporting diagnosis of pyelonephritis. As such, the patient should be treated for this infectious process and with antibiotics and response will be followed closely. The patient was advised that she should undergo an outpatient colonoscopy once she is recovered from acute illness. The patient does have a mildly elevated alkaline phosphatase, which could be followed for now until her urinary tract infection has been resolved. If persist, further workup may be necessary. RECOMMENDATIONS: Per above discussion and per orders in the chart. Thank you for asking me to participate in the care of this patient. Katalina Muller M.D. DR: KRIS JOB#: [id number] CC:
[2020-09-22] MEDS: NovoLOG Insulin Flexpen SUBQ SCH ×7 (06:13→20:15)
--- NOTE | 2020-09-22 06:29 | General Progress Note ---
Subjective Allergies: Coded Allergies: No Known Allergies (Unverified , 01/28/20) All Systems: reviewed and negative except above Subjective events noted fair glycemic control Item Value Date Time Bedside Blood Glucose 210 mg/dl H 09/22/20 0614 Bedside Blood Glucose 92 mg/dl 09/21/20 2115 Bedside Blood Glucose 155 mg/dl H 09/21/20 1714 Bedside Blood Glucose 246 mg/dl H 09/21/20 1235 Bedside Blood Glucose 185 mg/dl H 09/21/20 1000 Bedside Blood Glucose 229 mg/dl H 09/21/20 0538 Objective Last 24 Hour Vital Signs Date Time Temp Pulse Resp B/P (MAP) Pulse Ox O2 Delivery O2 Flow Rate FiO2 09/22/20 04:00 99.1 86 20 141/69 (93) 100 09/22/20 00:00 99.1 82 18 130/73 (92) 99 09/21/20 20:28 Room Air 09/21/20 20:00 98.7 84 18 133/72 (92) 99 09/21/20 16:00 98.1 76 18 139/69 (92) 96 09/21/20 12:00 98.9 80 18 142/66 (91) 97 09/21/20 09:00 Room Air 09/21/20 08:00 98.4 79 18 146/61 (89) 97 Intake and Output 09/21/20 09/22/20 19:00 07:00 Intake Total 500 ml 480 ml Balance 500 ml 480 ml Intake Oral 480 ml Other 500 ml # Voids 2 # Bowel Movements 1 Laboratory Tests 09/21/20 09:58: POC Whole Blood Glucose [Pending] 09/21/20 12:31: POC Whole Blood Glucose 246H 09/21/20 17:11: POC Whole Blood Glucose 155H 09/22/20 05:04: POC Whole Blood Glucose [Pending] Height (Feet): 5 Height (Inches): 3.00 Weight (Pounds): 150 General Appearance: no apparent distress Neck: normal alignment Cardiovascular: normal rate Respiratory/Chest: decreased breath sounds Abdomen: normal bowel sounds Objective Current Medications Medications (Trade) Dose Ordered Sig/Velia Route PRN Reason Start Time Stop Time Status Last Admin Dose Admin Acetaminophen (Tylenol) 650 mg Q4H PRN ORAL For Pain 09/21/20 12:45 10/21/20 12:44 09/21/20 15:48 Ceftriaxone Sodium 1 gm/ Dextrose 55 ml @ 110 mls/hr Q24H IVPB 09/21/20 21:00 09/28/20 20:59 09/21/20 20:54 Dextrose (Dextrose 50%) 25 ml Q30M PRN IV Hypoglycemia 09/21/20 12:45 12/20/20 12:44 Dextrose (Dextrose 50%) 50 ml Q30M PRN IV Hypoglycemia 09/21/20 12:45 12/20/20 12:44 Docusate Sodium (Colace) 100 mg TWICE A DAY ORAL 09/21/20 18:00 10/21/20 17:59 09/21/20 17:12 Insulin Aspart (NovoLOG) BEFORE MEALS AND HS SUBQ 09/21/20 06:30 12/20/20 06:29 09/22/20 06:14 Insulin Aspart (NovoLOG) 10 units NOVOTIAC SUBQ 09/21/20 06:30 12/20/20 06:29 09/22/20 06:13 Insulin Detemir (Levemir) 15 units Q12HR SUBQ 09/21/20 09:00 12/20/20 08:59 09/21/20 10:00 Iohexol (OMNIPAQUE-300 100ml) 100 ml NOW PRN INJ Radiology Procedure 09/20/20 19:30 09/22/20 19:29 Magnesium Hydroxide (Mom) 30 ml Q4H PRN ORAL Constipation 09/21/20 15:45 10/21/20 15:44 09/21/20 15:47 Metformin HCl (Glucophage) 500 mg BIAC ORAL 09/23/20 16:30 10/23/20 16:29 Ondansetron HCl (Zofran) 4 mg Q6H PRN IVP Nausea & Vomiting 09/21/20 12:45 10/21/20 12:44 Assessment/Plan Problem List: (1) DM (diabetes mellitus) ICD Codes: E11.9 - Type 2 diabetes mellitus without complications SNOMED: 09850270 (2) Pyelonephritis ICD Codes: N12 - Tubulo-interstitial nephritis, not specified as acute or chronic SNOMED: 87306796, 98087350 (3) HTN (hypertension) ICD Codes: I10 - Essential (primary) hypertension SNOMED: 83688195 Assessment/Plan: Levemir 15 units bid Novolog 10 units ac tid Metformin 500 mg bid Novolog sliding scale ac / hs Wayne Geiger MD Sep 22, 2020 06:29
--- NOTE | 2020-09-22 06:59 | NUR ---
NURSE HAND-OFF: Important Events on Shift:[UNEVENTFUL NIGHT, BLOOD GLUCOSE LEVEL 210MG/DL, ADM. 10 UNITS MAINTENANCE DOSE NOVOLOG/4 UNITS SS NOVOLOG, NO ADVERSE REACTION NOTED AFTER 15 MINUTES] Patient Status: [STABLE] Diet: [FULL LIQUID, ADVANCE TOLERATED] Pending Orders: [N/A] Pending Results/Labs:N/A Pending MD notification: N/A Latest Vital Signs: Temperature 99.1 , Pulse 86 , B/P 141 /69 , Respiratory Rate 20 , O2 SAT 100 , Room Air, O2 Flow Rate . Vital Sign Comment: [STABLE, TEMPERATURE 99.1, NO COMPLAINTS OF PAIN] Latest Kam Fall Score: 0 Fall Risk: Low Risk Safety Measures: Call light Within Reach, Bed Alarm Zone 2, Side Rails Side Rails x2, Bed position Low and Locked. Fall Precautions: Yellow Socks Patient Fall Education Report given to [JUDY CARTAGENA].
--- NOTE | 2020-09-22 07:10 | NUR ---
NURSE NOTES: received report from Vika RN, rounds made ,pt awake a/ox4,breaths regular unlabored on RA, no s/s of distress . PT has a Rt AC 20G locked ,bed in low locked position,side rails upX2,call Light with in reach will continue with plan of care
--- NOTE | 2020-09-22 08:39 | Consultation ---
History of Present Illness General Date patient seen: Sep 22, 2020 Present Illness Allergies: Coded Allergies: No Known Allergies (Unverified , 01/28/20) Medication History Scheduled Benazepril Hcl* (Benazepril Hcl*), 5 MG ORAL DAILY, (Reported) Glipizide* (Glipizide*), 5 MG ORAL BIDPC, (Reported) Metformin Hcl* (Metformin Hcl*), 850 MG ORAL TWICE A DAY, (Reported) Simvastatin (Zocor), 20 MG ORAL BEDTIME, (Reported) [cefalexina], 500 MG PO Q8HR, (Reported) [nediclon], 100 MG PO Q12HR, (Reported) Miscellaneous Medications Captopril (Captopril), 25 MG PO, (Reported) Patient History Healthcare decision maker Resuscitation status Advanced Directive on File Physical Exam Last 24 Hour Vital Signs Date Time Temp Pulse Resp B/P (MAP) Pulse Ox O2 Delivery O2 Flow Rate FiO2 09/22/20 08:00 98.9 83 20 122/65 (84) 100 09/22/20 04:00 99.1 86 20 141/69 (93) 100 09/22/20 00:00 99.1 82 18 130/73 (92) 99 09/21/20 20:28 Room Air 09/21/20 20:00 98.7 84 18 133/72 (92) 99 09/21/20 16:00 98.1 76 18 139/69 (92) 96 09/21/20 12:00 98.9 80 18 142/66 (91) 97 09/21/20 09:00 Room Air Intake and Output 09/21/20 09/22/20 19:00 07:00 Intake Total 500 ml 480 ml Balance 500 ml 480 ml Intake Oral 480 ml Other 500 ml # Voids 2 # Bowel Movements 1 Laboratory Tests Test 09/21/20 09:58 09/21/20 12:31 09/21/20 17:11 09/22/20 05:04 POC Whole Blood Glucose Pending 246 MG/DL (74-106) H 155 MG/DL (74-106) H Pending Height (Feet): 5 Height (Inches): 3.00 Weight (Pounds): 150 Medications Current Medications Medications (Trade) Dose Ordered Sig/Velia Route PRN Reason Start Time Stop Time Status Last Admin Dose Admin Acetaminophen (Tylenol) 650 mg Q4H PRN ORAL For Pain 09/21/20 12:45 10/21/20 12:44 09/21/20 15:48 Ceftriaxone Sodium 1 gm/ Dextrose 55 ml @ 110 mls/hr Q24H IVPB 09/21/20 21:00 09/28/20 20:59 09/21/20 20:54 Dextrose (Dextrose 50%) 25 ml Q30M PRN IV Hypoglycemia 09/21/20 12:45 12/20/20 12:44 Dextrose (Dextrose 50%) 50 ml Q30M PRN IV Hypoglycemia 09/21/20 12:45 12/20/20 12:44 Docusate Sodium (Colace) 100 mg TWICE A DAY ORAL 09/21/20 18:00 10/21/20 17:59 09/21/20 17:12 Insulin Aspart (NovoLOG) BEFORE MEALS AND HS SUBQ 09/21/20 06:30 12/20/20 06:29 09/22/20 06:14 Insulin Aspart (NovoLOG) 10 units NOVOTIAC SUBQ 09/21/20 06:30 12/20/20 06:29 09/22/20 06:13 Insulin Detemir (Levemir) 15 units Q12HR SUBQ 09/21/20 09:00 12/20/20 08:59 09/21/20 10:00 Iohexol (OMNIPAQUE-300 100ml) 100 ml NOW PRN INJ Radiology Procedure 09/20/20 19:30 09/22/20 19:29 Magnesium Hydroxide (Mom) 30 ml Q4H PRN ORAL Constipation 09/21/20 15:45 10/21/20 15:44 09/21/20 15:47 Metformin HCl (Glucophage) 500 mg BIAC ORAL 09/23/20 16:30 10/23/20 16:29 Ondansetron HCl (Zofran) 4 mg Q6H PRN IVP Nausea & Vomiting 09/21/20 12:45 10/21/20 12:44 Assessment/Plan Assessment/Plan: (1) Left sided flank pain (2) Pyelonephritis seen dictated Clayton Car Sep 22, 2020 08:39
[2020-09-22] MEDS: Docusate 100mg cap ORAL SCH ×2 (09:02→17:16)
[2020-09-22] MEDS: Levemir Flexpen SUBQ SCH ×2 (09:04→20:15)
--- NOTE | 2020-09-22 12:49 | NUR ---
RD ASSESSMENT & RECOMMENDATIONS SEE CARE ACTIVITY FOR COMPLETE ASSESSMENT DAILY ESTIMATED NEEDS: Needs based on DM/56kg 25-30 kcals/kg 8860-2996 total kcals 1-1.3 g protein/kg 56-73 g total protein 25-30 mL/kg 0481-7015 total fluid mLs NUTRITION DIAGNOSIS: Altered nutrition related lab values R/T uncontrolled diabetes as evidenced by A1C of 14.3, elev BGs (231, 432), elev POC glu (324, 210, 92, 155), Uglu 4+ upon adm. CURRENT DIET:FULL LIQUID DIET PO DIET RECOMMENDATIONS: CCHO LOW/ advance diet as tolerated as per MD ADDITIONAL RECOMMENDATIONS: * Standing wt for accurate CBW * Monitor closely for hypoglycemia w/ increased insulin regimen * Add 1 carb HS snack * Add CCHO LOW to current full liquid diet
--- NOTE | 2020-09-22 14:31 | NUR ---
CASE MANAGEMENT:REVIEW SI;SEPSIS. PYELONEPHRITIS. 99.1 86 20 141/69 99% ON RA IS;ROCEPHIN IV QD INSULIN LEVEMIR SQ Q1 INSULIN NOVOLOG SQ QID MED SURG STATUS DCP;FROM HOME PLAN; CONTINUE FULL LIQUID DIET ADVANCE TOLERATED
--- NOTE | 2020-09-22 15:15 | Infectious Diseases Prog Note ---
Assessment/Plan Assessment/Plan IMPRESSION: 1. Sepsis , improving. 2. Left-sided pyelonephritis. 3. Diabetes mellitus with hyperglycemia. 4. Hypertension. RECOMMENDATIONS: We will continue ceftriaxone. We will follow up the cultures. Subjective ROS Limited/Unobtainable: No Constitutional: Reports: no symptoms, other - feels better Respiratory: Reports: no symptoms Cardiovascular: Reports: no symptoms Gastrointestinal/Abdominal: Reports: no symptoms Genitourinary: Reports: other - left flank pain Allergies: Coded Allergies: No Known Allergies (Unverified , 01/28/20) Objective Last 24 Hour Vital Signs Date Time Temp Pulse Resp B/P (MAP) Pulse Ox O2 Delivery O2 Flow Rate FiO2 09/22/20 12:00 99.0 81 18 134/68 (90) 100 09/22/20 09:00 Room Air 09/22/20 08:00 98.9 83 20 122/65 (84) 100 09/22/20 04:00 99.1 86 20 141/69 (93) 100 09/22/20 00:00 99.1 82 18 130/73 (92) 99 09/21/20 20:28 Room Air 09/21/20 20:00 98.7 84 18 133/72 (92) 99 09/21/20 16:00 98.1 76 18 139/69 (92) 96 Height (Feet): 5 Height (Inches): 3.00 Weight (Pounds): 150 General Appearance: no acute distress HEENT: mucous membranes moist Respiratory/Chest: lungs clear Cardiovascular: normal rate Abdomen: other - soft Extremities: no edema Neurologic/Psychiatric: alert, oriented x 3, responsive Microbiology Date/Time Source Procedure Growth Status 09/20/20 19:20 Urine,Clean Catch Urine Culture - Preliminary Gram Negative Harsh Resulted Laboratory Tests Test 09/21/20 17:11 09/22/20 05:04 POC Whole Blood Glucose 155 MG/DL (74-106) H Pending Current Medications Medications (Trade) Dose Ordered Sig/Velia Route PRN Reason Start Time Stop Time Status Last Admin Dose Admin Acetaminophen (Tylenol) 650 mg Q4H PRN ORAL For Pain 09/21/20 12:45 10/21/20 12:44 09/21/20 15:48 Ceftriaxone Sodium 1 gm/ Dextrose 55 ml @ 110 mls/hr Q24H IVPB 09/21/20 21:00 09/28/20 20:59 09/21/20 20:54 Dextrose (Dextrose 50%) 25 ml Q30M PRN IV Hypoglycemia 09/21/20 12:45 12/20/20 12:44 Dextrose (Dextrose 50%) 50 ml Q30M PRN IV Hypoglycemia 09/21/20 12:45 12/20/20 12:44 Docusate Sodium (Colace) 100 mg TWICE A DAY ORAL 09/21/20 18:00 10/21/20 17:59 09/22/20 09:02 Insulin Aspart (NovoLOG) BEFORE MEALS AND HS SUBQ 09/21/20 06:30 12/20/20 06:29 09/22/20 11:41 Insulin Aspart (NovoLOG) 10 units NOVOTIAC SUBQ 09/21/20 06:30 12/20/20 06:29 09/22/20 11:40 Insulin Detemir (Levemir) 15 units Q12HR SUBQ 09/21/20 09:00 12/20/20 08:59 09/22/20 09:04 Iohexol (OMNIPAQUE-300 100ml) 100 ml NOW PRN INJ Radiology Procedure 09/20/20 19:30 09/22/20 19:29 Magnesium Hydroxide (Mom) 30 ml Q4H PRN ORAL Constipation 09/21/20 15:45 10/21/20 15:44 09/21/20 15:47 Metformin HCl (Glucophage) 500 mg BIAC ORAL 09/23/20 16:30 10/23/20 16:29 Ondansetron HCl (Zofran) 4 mg Q6H PRN IVP Nausea & Vomiting 09/21/20 12:45 10/21/20 12:44 Pedro Tanner MD Sep 22, 2020 15:15
--- NOTE | 2020-09-22 19:10 | NUR ---
NURSE HAND-OFF: Important Events on Shift: Patient Diet CCHO medium Pending Orders: Pending Results/Labs: Pending MD notification: Latest Vital Signs: Temperature 99.0 , Pulse 89 , B/P 123 /65 , Respiratory Rate 18 , O2 SAT 100 , Room Air, O2 Flow Rate . Vital Sign Comment: Latest Kam Fall Score: 0 Fall Risk: Low Risk Safety Measures: Call light Within Reach, Bed Alarm Zone 2, Side Rails Side Rails x2, Bed position Low and Locked. Fall Precautions: Yellow Socks Patient Fall Education Report given to Jean Pierre KIM.
--- NOTE | 2020-09-22 20:00 | NUR ---
NURSE NOTES: Patient received alert awake. Denies pain or discomfort. Call light in reach, instructed to call for assistance. Will continue to monitor.
--- NOTE | 2020-09-22 20:01 | General Progress Note ---
Subjective ROS Limited/Unobtainable: Yes Allergies: Coded Allergies: No Known Allergies (Unverified , 01/28/20) Objective Last 24 Hour Vital Signs Date Time Temp Pulse Resp B/P (MAP) Pulse Ox O2 Delivery O2 Flow Rate FiO2 09/22/20 16:00 99.0 89 18 123/65 (84) 100 09/22/20 12:00 99.0 81 18 134/68 (90) 100 09/22/20 09:00 Room Air 09/22/20 08:00 98.9 83 20 122/65 (84) 100 09/22/20 04:00 99.1 86 20 141/69 (93) 100 09/22/20 00:00 99.1 82 18 130/73 (92) 99 09/21/20 20:28 Room Air l Intake and Output 09/21/20 09/22/20 19:00 07:00 Intake Total 500 ml 480 ml Balance 500 ml 480 ml Intake Oral 480 ml Other 500 ml # Voids 2 # Bowel Movements 1 Laboratory Tests 09/21/20 21:14: POC Whole Blood Glucose 92 09/22/20 05:04: POC Whole Blood Glucose [Pending] 09/22/20 09:01: POC Whole Blood Glucose 254H 09/22/20 11:37: POC Whole Blood Glucose 324H 09/22/20 17:08: POC Whole Blood Glucose 220H Height (Feet): 5 Height (Inches): 3.00 Weight (Pounds): 150 Assessment/Plan Problem List: (1) Hyperglycemia due to type 1 diabetes mellitus ICD Codes: E10.65 - Type 1 diabetes mellitus with hyperglycemia SNOMED: 931509661593867, 85571880 (2) Pyelonephritis ICD Codes: N12 - Tubulo-interstitial nephritis, not specified as acute or chronic SNOMED: 60250127, 06462906 (3) HTN (hypertension) ICD Codes: I10 - Essential (primary) hypertension SNOMED: 24963118 (4) DM (diabetes mellitus) ICD Codes: E11.9 - Type 2 diabetes mellitus without complications SNOMED: 10775715 Status: progressing Assessment/Plan: pyelonephritis is improving afebrile htn niddm sugar is improving Watson Gimenez MD Sep 22, 2020 20:01
--- NOTE | 2020-09-22 20:15 | Consultation ---
DATE OF CONSULTATION: 09/22/2020 CONSULTING PHYSICIAN: Patricia Figueroa M.D. REFERRING PHYSICIAN: Watson Gimenez MD. PHYSICIAN MAGICIAN HELPER: Minnie Tavera CHIEF COMPLAINT: Left-sided flank pain. HISTORY OF PRESENT ILLNESS: The patient is a 55-year-old female who is being seen on the medical/surgical floor of [facility] for initial pain management consultation. The patient was admitted under the care of Dr. Gimenez due to left-sided flank pain, found to have pyelonephritis, was admitted to the hospital, seen by Infectious Disease physician, started on antibiotics. She is Tylenol as needed 650 mg every 4 hours which patient reports reduces her pain to 4/10. At this time, she is comfortable. We were consulted so the patient would have adequate pain control while here in the hospital. PAST MEDICAL HISTORY: Diabetes mellitus, hypertension, hyperlipidemia. PAST SURGICAL HISTORY: Denies. SOCIAL HISTORY: Denies smoking tobacco, drinking alcohol, or IV drug abuse. ALLERGIES: No known drug allergies. MEDICATIONS: Captopril, glipizide, metformin, simvastatin. REVIEW OF SYSTEMS: Denies rash, fever, chills, sweating, dizziness, drowsiness, blurred vision, sore throat, or change in weight. No shortness of breath or chest pain. No nausea, vomiting, diarrhea, or blood in the stool or urine. No dysuria. PHYSICAL EXAMINATION: GENERAL: Alert, awake, and oriented. VITAL SIGNS: Blood pressure 120/65, heart rate 82, oxygen saturation 100%, respiratory rate 20, and temperature 98.9 degrees Fahrenheit. HEENT: PERRLA. NECK: Range of motion is full in all directions. No tenderness to paracervical muscles. No adenopathy. LUNGS: Decreased breath sounds bilaterally. HEART: S1 and S2 regular. ABDOMEN: Tenderness to palpation. BACK: Range of motion is full in flexion and extension. EXTREMITIES: Upper and lower extremity range of motion is full in all directions. No cyanosis. No clubbing. Sensory is reduced. Reflexes are not obtainable. No adenopathy. ASSESSMENT AND PLAN: This is a 55-year-old female with pyelonephritis and left-sided flank pain. The patient will be continued on Tylenol as needed. The patient was discussed with with Dr. Figueroa and Dr. Figueroa concurred. We will follow up with the patient. Thank you very much for the courtesy of this consultation. Patricia Figueroa M.D. SIMONA Tavera DR: Sumi JOB#: [id number] CC:
[2020-09-22] MEDS: cefTRIAXone 1 GM in D5W 55 ML IVPB SCH (20:16)
--- NOTE | 2020-09-22 21:58 | General Progress Note ---
Subjective Allergies: Coded Allergies: No Known Allergies (Unverified , 01/28/20) Subjective Better today less pain Objective Last 24 Hour Vital Signs Date Time Temp Pulse Resp B/P (MAP) Pulse Ox O2 Delivery O2 Flow Rate FiO2 09/22/20 21:00 Room Air 09/22/20 20:00 99.0 85 18 128/64 (85) 92 09/22/20 16:00 99.0 89 18 123/65 (84) 100 09/22/20 12:00 99.0 81 18 134/68 (90) 100 09/22/20 09:00 Room Air 09/22/20 08:00 98.9 83 20 122/65 (84) 100 09/22/20 04:00 99.1 86 20 141/69 (93) 100 09/22/20 00:00 99.1 82 18 130/73 (92) 99 Intake and Output 09/21/20 09/22/20 19:00 07:00 Intake Total 500 ml 480 ml Balance 500 ml 480 ml Intake Oral 480 ml Other 500 ml # Voids 2 # Bowel Movements 1 Laboratory Tests 09/22/20 05:04: POC Whole Blood Glucose [Pending] 09/22/20 09:01: POC Whole Blood Glucose 254H 09/22/20 11:37: POC Whole Blood Glucose 324H 09/22/20 17:08: POC Whole Blood Glucose 220H 09/22/20 20:08: POC Whole Blood Glucose 250H Height (Feet): 5 Height (Inches): 3.00 Weight (Pounds): 150 Objective WDWN NCAT supple CTA RR abd soft ND less LLQ TTP no edema Assessment/Plan Status: progressing Assessment/Plan: Assessment - Pyelonephritis - LLQ TTP - improving Recommendations - abx - follow exam - po ad bolivar Katalina Muller MD Sep 22, 2020 21:58
--- NOTE | 2020-09-23 00:02 | NUR ---
NURSE NOTES: Patient c/o difficulty sleeping. Provided quiet environment and dimmed lights, still unable to sleep. Message left to MD.
[2020-09-23 04:00] VITALS: BP 148/73
[2020-09-23] MEDS: NovoLOG Insulin Flexpen SUBQ SCH ×4 (06:38→12:11)
--- NOTE | 2020-09-23 06:40 | General Progress Note ---
Subjective Allergies: Coded Allergies: No Known Allergies (Unverified , 01/28/20) All Systems: reviewed and negative except above Subjective events noted glucose values improved Item Value Date Time Bedside Blood Glucose 151 mg/dl H 09/23/20 06 Bedside Blood Glucose 250 mg/dl H 09/22/202014 Bedside Blood Glucose 220 mg/dl H 09/22/20 1715 Bedside Blood Glucose 324 mg/dl H 09/22/20 1141 Bedside Blood Glucose 254 mg/dl H 09/22/20 0904 Bedside Blood Glucose 210 mg/dl H 09/22/20 0614 Objective Last 24 Hour Vital Signs Date Time Temp Pulse Resp B/P (MAP) Pulse Ox O2 Delivery O2 Flow Rate FiO2 09/23/20 04:00 99.5 84 18 148/73 (98) 95 09/22/20 23:57 95.7 76 18 129/74 (92) 95 09/22/20 21:00 Room Air 09/22/20 20:00 99.0 85 18 128/64 (85) 92 09/22/20 16:00 99.0 89 18 123/65 (84) 100 09/22/20 12:00 99.0 81 18 134/68 (90) 100 09/22/20 09:00 Room Air 09/22/20 08:00 98.9 83 20 122/65 (84) 100 Intake and Output 09/22/20 09/23/20 19:00 07:00 Intake Total 1200 ml 655 ml Balance 1200 ml 655 ml Intake Oral 1200 ml 600 ml IV Total 55 ml # Voids 3 5 # Bowel Movements 3 1 Laboratory Tests 09/22/20 09:01: POC Whole Blood Glucose 254H 09/22/20 11:37: POC Whole Blood Glucose 324H 09/22/20 17:08: POC Whole Blood Glucose 220H 09/22/20 20:08: POC Whole Blood Glucose 250H 09/23/20 06:07: POC Whole Blood Glucose 151H Height (Feet): 5 Height (Inches): 3.00 Weight (Pounds): 150 General Appearance: no apparent distress Neck: normal alignment Cardiovascular: regular rhythm Respiratory/Chest: chest wall non-tender Abdomen: normal bowel sounds Objective Current Medications Medications (Trade) Dose Ordered Sig/Velia Route PRN Reason Start Time Stop Time Status Last Admin Dose Admin Acetaminophen (Tylenol) 650 mg Q4H PRN ORAL For Pain 09/21/20 12:45 10/21/20 12:44 09/21/20 15:48 Ceftriaxone Sodium 1 gm/ Dextrose 55 ml @ 110 mls/hr Q24H IVPB 09/21/20 21:00 09/28/20 20:59 09/22/20 20:16 Dextrose (Dextrose 50%) 25 ml Q30M PRN IV Hypoglycemia 09/21/20 12:45 12/20/20 12:44 Dextrose (Dextrose 50%) 50 ml Q30M PRN IV Hypoglycemia 09/21/20 12:45 12/20/20 12:44 Docusate Sodium (Colace) 100 mg TWICE A DAY ORAL 09/21/20 18:00 10/21/20 17:59 09/22/20 17:16 Insulin Aspart (NovoLOG) BEFORE MEALS AND HS SUBQ 09/21/20 06:30 12/20/20 06:29 09/22/20 20:15 Insulin Aspart (NovoLOG) 10 units NOVOTIAC SUBQ 09/21/20 06:30 12/20/20 06:29 09/22/20 17:14 Insulin Detemir (Levemir) 15 units Q12HR SUBQ 09/21/20 09:00 12/20/20 08:59 09/22/20 20:15 Magnesium Hydroxide (Mom) 30 ml Q4H PRN ORAL Constipation 09/21/20 15:45 10/21/20 15:44 09/21/20 15:47 Metformin HCl (Glucophage) 500 mg BIAC ORAL 09/23/20 16:30 10/23/20 16:29 Ondansetron HCl (Zofran) 4 mg Q6H PRN IVP Nausea & Vomiting 09/21/20 12:45 10/21/20 12:44 Assessment/Plan Problem List: (1) DM (diabetes mellitus) ICD Codes: E11.9 - Type 2 diabetes mellitus without complications SNOMED: 28496529 (2) Pyelonephritis ICD Codes: N12 - Tubulo-interstitial nephritis, not specified as acute or chronic SNOMED: 73024952, 74590176 (3) HTN (hypertension) ICD Codes: I10 - Essential (primary) hypertension SNOMED: 88284085 Status: progressing Assessment/Plan: Levemir 15 units bid Novolog 10 units ac tid Metformin 500 mg bid Novolog sliding scale ac / hs Wayne Geiger MD Sep 23, 2020 06:40
--- NOTE | 2020-09-23 07:21 | NUR ---
NURSE NOTES: Report received from JUDY Sun. Pt is awake in bed, A and O x 4, no SOB, bed in lowest position with breaks engaged and alarm on, side rails up x 2 for safety, denies any pain or discomfort at this time, IV line present, on room air, will continue to monitor and proceed with plan of care, call light within reach.
--- NOTE | 2020-09-23 07:27 | NUR ---
NURSE HAND-OFF: Important Events on Shift:[uneventful] Patient Status: [stable] Diet: [CCHO Medium] Pending Orders: [] Pending Results/Labs:[] Pending MD notification:[] Latest Vital Signs: Temperature 99.5 , Pulse 84 , B/P 148 /73 , Respiratory Rate 18 , O2 SAT 95 , Room Air, O2 Flow Rate . Vital Sign Comment: [] Latest Kam Fall Score: 20 Fall Risk: Low Risk Safety Measures: Call light Within Reach, Bed Alarm Zone 2, Side Rails Side Rails x2, Bed position Low and Locked. Fall Precautions: Yellow Socks Patient Fall Education Report given to [Ashely Gustafson RN].
[2020-09-23 08:00] VITALS: BP 127/68
[2020-09-23] MEDS: Docusate 100mg cap ORAL SCH (08:06)
[2020-09-23] MEDS: Levemir Flexpen SUBQ SCH (08:06)
--- NOTE | 2020-09-23 08:36 | General Progress Note ---
Subjective Date patient seen: Sep 23, 2020 Time patient seen: 07:15 - am Allergies: Coded Allergies: No Known Allergies (Unverified , 01/28/20) Subjective HISTORY OF PRESENT ILLNESS: The patient is a 55-year-old female who is being seen on the medical/surgical floor of [facility]. Patient is in bed and showing no signs of pain or distress. Pain has been tolerated on the Tylenol, she has no new complaints at this time. REVIEW OF SYSTEMS: Denies rash, fever, chills, sweating, dizziness, drowsiness, blurred vision, sore throat, or change in weight. No shortness of breath or chest pain. No nausea, vomiting, diarrhea, or blood in the stool or urine. No dysuria. Objective Last 24 Hour Vital Signs Date Time Temp Pulse Resp B/P (MAP) Pulse Ox O2 Delivery O2 Flow Rate FiO2 09/23/20 04:00 99.5 84 18 148/73 (98) 95 09/22/20 23:57 95.7 76 18 129/74 (92) 95 09/22/20 21:00 Room Air 09/22/20 20:00 99.0 85 18 128/64 (85) 92 09/22/20 16:00 99.0 89 18 123/65 (84) 100 09/22/20 12:00 99.0 81 18 134/68 (90) 100 09/22/20 09:00 Room Air Intake and Output 09/22/20 09/23/20 19:00 07:00 Intake Total 1200 ml 655 ml Balance 1200 ml 655 ml Intake Oral 1200 ml 600 ml IV Total 55 ml # Voids 3 5 # Bowel Movements 3 1 Laboratory Tests 09/22/20 09:01: POC Whole Blood Glucose 254H 09/22/20 11:37: POC Whole Blood Glucose 324H 09/22/20 17:08: POC Whole Blood Glucose 220H 09/22/20 20:08: POC Whole Blood Glucose 250H 09/23/20 06:07: POC Whole Blood Glucose 151H Height (Feet): 5 Height (Inches): 3.00 Weight (Pounds): 150 Objective PHYSICAL EXAMINATION: GENERAL: Alert, awake, and oriented. LUNGS: Decreased breath sounds bilaterally. HEART: S1 and S2 regular. ABDOMEN: Tenderness to palpation. EXTREMITIES: No cyanosis. No clubbing. NEURO: No changes. Assessment/Plan Assessment/Plan: (1) Left sided flank pain (2) Pyelonephritis Patient to be continued on Tylenol D/w Dr. Figueroa and he concurred. Clayton Car Sep 23, 2020 08:36
--- NOTE | 2020-09-23 11:59 | Infectious Diseases Prog Note ---
Assessment/Plan Assessment/Plan IMPRESSION: 1. Sepsis , improving. 2. Left-sided pyelonephritis. culture: E. coli 3. Diabetes mellitus with hyperglycemia. 4. Hypertension. RECOMMENDATIONS: We will continue ceftriaxone in hospital Can be discharged with PO Levaquin X 7 days Subjective ROS Limited/Unobtainable: No Constitutional: Reports: no symptoms Respiratory: Reports: no symptoms Cardiovascular: Reports: no symptoms Gastrointestinal/Abdominal: Reports: no symptoms Genitourinary: Reports: no symptoms Allergies: Coded Allergies: No Known Allergies (Unverified , 01/28/20) Objective Last 24 Hour Vital Signs Date Time Temp Pulse Resp B/P (MAP) Pulse Ox O2 Delivery O2 Flow Rate FiO2 09/23/20 09:00 Room Air 09/23/20 08:00 98.4 83 18 127/68 (87) 97 09/23/20 04:00 99.5 84 18 148/73 (98) 95 09/22/20 23:57 95.7 76 18 129/74 (92) 95 09/22/20 21:00 Room Air 09/22/20 20:00 99.0 85 18 128/64 (85) 92 09/22/20 16:00 99.0 89 18 123/65 (84) 100 09/22/20 12:00 99.0 81 18 134/68 (90) 100 Height (Feet): 5 Height (Inches): 3.00 Weight (Pounds): 150 General Appearance: no acute distress HEENT: mucous membranes moist Respiratory/Chest: lungs clear Cardiovascular: normal rate Abdomen: soft, non tender Extremities: no edema Neurologic/Psychiatric: alert, oriented x 3, responsive Microbiology Date/Time Source Procedure Growth Status 09/20/20 19:20 Urine,Clean Catch Urine Culture - Final Escherichia Coli Complete Laboratory Tests Test 09/22/20 17:08 09/22/20 20:08 09/23/20 06:07 09/23/20 11:30 POC Whole Blood Glucose 220 MG/DL (74-106) H 250 MG/DL (74-106) H 151 MG/DL (74-106) H 239 MG/DL (74-106) H Current Medications Medications (Trade) Dose Ordered Sig/Velia Route PRN Reason Start Time Stop Time Status Last Admin Dose Admin Acetaminophen (Tylenol) 650 mg Q4H PRN ORAL For Pain 09/21/20 12:45 10/21/20 12:44 09/21/20 15:48 Ceftriaxone Sodium 1 gm/ Dextrose 55 ml @ 110 mls/hr Q24H IVPB 09/21/20 21:00 09/28/20 20:59 09/22/20 20:16 Dextrose (Dextrose 50%) 25 ml Q30M PRN IV Hypoglycemia 09/21/20 12:45 12/20/20 12:44 Dextrose (Dextrose 50%) 50 ml Q30M PRN IV Hypoglycemia 09/21/20 12:45 12/20/20 12:44 Docusate Sodium (Colace) 100 mg TWICE A DAY ORAL 09/21/20 18:00 10/21/20 17:59 09/23/20 08:06 Insulin Aspart (NovoLOG) BEFORE MEALS AND HS SUBQ 09/21/20 06:30 12/20/20 06:29 09/23/20 06:39 Insulin Aspart (NovoLOG) 10 units NOVOTIAC SUBQ 09/21/20 06:30 12/20/20 06:29 09/23/20 06:38 Insulin Detemir (Levemir) 15 units Q12HR SUBQ 09/21/20 09:00 12/20/20 08:59 09/23/20 08:06 Magnesium Hydroxide (Mom) 30 ml Q4H PRN ORAL Constipation 09/21/20 15:45 10/21/20 15:44 09/21/20 15:47 Metformin HCl (Glucophage) 500 mg BIAC ORAL 09/23/20 16:30 10/23/20 16:29 Ondansetron HCl (Zofran) 4 mg Q6H PRN IVP Nausea & Vomiting 09/21/20 12:45 10/21/20 12:44 Pedro Tanner MD Sep 23, 2020 11:59
[2020-09-23 12:00] VITALS: BP 122/65
[2020-09-23] MEDS ORDERED: LEVOFLOXACIN750 MG ORAL (14:21)
--- NOTE | 2020-09-23 15:41 | NUR ---
NURSE NOTES: Patient was discharged home at 1535. Discharge paper works, belongings list form signed by patient, prescriptions and work noted by SSD given to patient and was instructed pt and daughter regarding ff up in 1 week with primary MD and both verbalized understanding. IV line and ID band removed. Stable and with no c/o pain upon discharge. Addendum: 09/23/20 at 1543 by Ashely Cunningham RN Correction: Work note.
[2020-09-23] MEDS ORDERED: metFORMIN 500mg tab ORAL SCH (16:30)
--- NOTE | 2020-09-23 21:37 | General Progress Note ---
Subjective Allergies: Coded Allergies: No Known Allergies (Unverified , 01/28/20) Subjective Better today less pain tolerating PO advised should get outpatient colonoscopy, given age Objective Last 24 Hour Vital Signs Date Time Temp Pulse Resp B/P (MAP) Pulse Ox O2 Delivery O2 Flow Rate FiO2 09/23/20 12:00 98.2 81 18 122/65 (84) 96 09/23/20 09:00 Room Air 09/23/20 08:00 98.4 83 18 127/68 (87) 97 09/23/20 04:00 99.5 84 18 148/73 (98) 95 09/22/20 23:57 95.7 76 18 129/74 (92) 95 Intake and Output 09/22/20 09/23/20 18:59 06:59 Intake Total 1200 ml 655 ml Balance 1200 ml 655 ml Intake Oral 1200 ml 600 ml IV Total 55 ml # Voids 3 5 # Bowel Movements 3 1 Laboratory Tests 09/23/20 06:07: POC Whole Blood Glucose 151H 09/23/20 11:30: POC Whole Blood Glucose 239H Height (Feet): 5 Height (Inches): 3.00 Weight (Pounds): 150 Objective WDWN NCAT supple CTA RR abd soft ND less LLQ TTP no edema Assessment/Plan Assessment/Plan: Assessment - Pyelonephritis - LLQ TTP - improving Recommendations - abx - follow exam - po ad bolivar Katalina Muller MD Sep 23, 2020 21:37
--- NOTE | 2020-09-25 13:01 | Discharge Summary ---
Discharge Summary Discharge Summary _ DATE OF ADMISSION: 09/20/2020 DATE OF DISCHARGE: 09/23/2020 DISCHARGED BY: Dr. Ovalles REASON FOR ADMISSION: 55 years old female with past medical history of hypertension, diabetes mellitus, presented to emergency department complaining of abdominal pain which started earlier in the morning. Pain reported as dull nonradiating 8 out of 10 with associated nausea but no vomiting. She denied chest pain. She denies shortness of breath she reported some diarrhea. No fever or chills. Upon evaluation laboratory work-up revealed leukocytosis WBC 12.1 stable hemoglobin hematocrit and platelet count. Sodium 129 chloride 93. BUN 16, creatinine 1.0. Glucose 432 anion gap 8. Stable LFT Albumin 2.5 urinalysis findings were grossly consistent with a urinary tract infection. CT of the abdomen pelvis revealed left renal engorgement with global delayed enhancement and patchy areas of nonenhancement. Findings likely representing pyelonephritis. In emergency department patient received IV fluids pancultured started on empiric antibiotic received IV fluids analgesic antiemetic GI prophylaxis Ancef 10 units of insulin and subsequently admitted to medical surgical floor for further management. CONSULTANTS: dance professor Dr. Geiger ID specialist Dr. Jude Tanner GI specialist Dr. Muller pain specialist Dr. Figueroa [facility] COURSE: [] Patient made to medical surgical floor patient started on IV fluids and empiric antibiotics urine culture revealed E. coli antibiotic optimized as per ID specialist recommendation. Patient was discharged on oral antibiotic for additional 7 days to complete the course. Pain management was addressed as per pain specialist recommendation Blood sugar was managed as per dance professor recommendation patient started on long-acting Levemir short acting NovoLog premeal metformin was continued. Sliding scale of insulin was on board as needed. Diabetic diet and diabetic teaching provided. Patient was encouraged compliance with and glycemic regimen as outpatient. Blood sugar improved hemoglobin A1c 14.3 clearly not at goal. Patient will need further follow-up with a primary care provider to optimize antiglycemic regimen and bring hemoglobin A1c under control. Blood pressure was closely monitored and remained stable with the current regimen. GI prophylaxis provided. Patient clinically stabilized and was ready for discharge. FINAL DIAGNOSES: Sepsis Left-sided pyelonephritis/E. coli Diabetes mellitus ljc-[id number]/hemoglobin A1c 14.3 Hypertension DISCHARGE MEDICATIONS: See Medication Reconciliation list. DISCHARGE INSTRUCTIONS: Patient was discharged home. Follow up with primary care provider in one week. I have been assigned to dictate discharge summary for this account. I was not involved in the patient's management. Karine Garduno NP Sep 25, 2020 13:01
== END 2020-09-23 15:41 | disposition home or self-care (01) | DRG 872 ==
LOC: EMR 19:36 → 4E 22:17 → EDBEDREQ 22:29 → 4E 09-21 09:45
DX: A41.9 Sepsis, unspecified organism (principal); N12 Tubulo-interstitial nephritis, not specified as acute or chronic; E11.65 Type 2 diabetes mellitus with hyperglycemia; B96.20 Unspecified Escherichia coli [E. coli] as the cause of diseases classified elsewhere; Z79.84 Long term (current) use of oral hypoglycemic drugs
CPT/HCPCS: 36415; 74177; 80053; 81003; 82962; 83036; 83690; 85025; 87086; 87181; 96361; 96365; 96375; 96376; 99285; J1815; J2405; J7030; S5561

== ENCOUNTER 2020-10-29 16:05 | Inpatient (IN) | payer MEDICAID, OTHER ==
[~2020-10-29] VITALS: Ht 157.5 cm; Wt 60.3 kg
[~2020-10-29 16:05] MED LIST changes: +BENAZEPRIL HCL10 MG ORAL; +CAPTOPRIL25 M1 PO; +GLIPIZIDE5 MG ORAL; +LEVOFLOXACIN750 MG ORAL; +ZOCOR20 M1 ORAL; +[UNRECOGNIZED DRUG - OTHER] PO; +[UNRECOGNIZED DRUG - OTHER] PO
[2020-10-29] MEDS ORDERED: Acetaminophen 500mg (ES) tab ORAL ONE (17:00)
[2020-10-29 17:08] LABS: BASOPHILS % (AUTO) 0.7 % (0.0-2.0); HEMATOCRIT 36.5 % (37.0-47.0); HEMOGLOBIN 12.3 G/DL (12.0-16.0); MEAN CORPUSCULAR VOLUME 82 FL (80-99); MONOCYTES % (AUTO) 7.2 % (1.0-10.0); PLATELET COUNT 161 K/UL (150-450); RED BLOOD COUNT 4.48 M/UL (4.20-5.40); RED CELL DISTRIBUTION WIDTH 14.4 % (11.6-14.8); WHITE BLOOD COUNT 15.2 K/UL (4.8-10.8)
--- NOTE | 2020-10-29 17:10 | Diagnostic Imaging Report ---
Indication: Shortness of breath Technique: One view of the chest Comparison: none Findings: Lungs and pleural spaces are clear. Heart size is normal. Impression: No acute process
[2020-10-29 17:12] LABS: ANION GAP 7 mmol/L (5-15); BLOOD UREA NITROGEN 22 mg/dL (7-18); CALCIUM 9.1 MG/DL (8.5-10.1); CARBON DIOXIDE 28 MMOL/L (21-32); CHLORIDE 92 MMOL/L (98-107); CREATININE 0.9 MG/DL (0.55-1.30); SODIUM 127 MMOL/L (136-145)
[2020-10-29 17:17] LABS: APPEARANCE,URINE CLOUDY; BILIRUBIN, URINE NEGATIVE (NEGATIVE); COLOR,URINE PALE YELLOW; GLUCOSE, URINE (UA) 4+ (NEGATIVE); KETONES,URINE 3+ (NEGATIVE); LEUKOCYTE ESTERASE ,URINE 3+ (NEGATIVE); NITRITE,URINE NEGATIVE (NEGATIVE); PH,URINE 6.5 (4.5-8.0); PROTEIN,URINE 2+ (NEGATIVE); UROBILINOGEN,URINE NORMAL MG/DL (0.0-1.0)
[2020-10-29 17:29] LABS: ALANINE AMINOTRANSFERASE 17 U/L (12-78); ALBUMIN 2.9 G/DL (3.4-5.0); ALBUMIN/GLOBULIN RATIO 0.5 (1.0-2.7); ALKALINE PHOSPHATASE 103 U/L (46-116); ASPARTATE AMINO TRANSFERASE 13 U/L (15-37); FERRITIN 380 NG/ML (8-388)
[2020-10-29] MEDS ORDERED: Enoxaparin 60mg Inj SUBQ ONE (17:45)
[2020-10-29] MEDS ORDERED: Azithromycin 500 MG in NS 275 ML IV ONE (17:45)
[2020-10-29] MEDS ORDERED: cefTRIAXone 1 GM in NS 55 ML IVPB ONE (17:45)
--- NOTE | 2020-10-29 18:08 | Emergency Room Report ---
History of Present Illness General Chief Complaint: Vomiting Source: Patient (Leah Garcia) Present Illness HPI 55-year-old female with history of diabetes currently uncontrolled here complaining of few days of multiple episodes of nonbloody emesis. Also [place] of shortness of breath. Denies headache and dizziness. Patient appears to be febrile, stating 90% on room air. Also complains of few bouts of nonbloody diarrhea. Denies constipation, chest pain, no other associate symptoms. Denies . Denies drug use, alcohol intake. Has not taken medication for symptom relief. Patient speaking full sentences, ambulatory, in no apparent distress. (Leah Garcia) Allergies: Coded Allergies: No Known Allergies (Unverified , 01/28/20) COVID-19 Screening Contact w/high risk pt: No Recent Travel to affected area: No Experienced COVID-19 symptoms?: No COVID-19 Testing performed [employer]: Yes - 10/25/20 COVID-19 Screening: Negative COVID-19 COVID-19 Testing Source: clinic (Leah Garcia) Patient History Past Medical History: see triage record Past Surgical History: none Pertinent Family History: none Last Menstrual Period: n/a Now: No Immunizations: UTD Reviewed Nursing Documentation: PMH: Agreed; PSxH: Agreed (Leah Garcia) Nursing Documentation-PMH Past Medical History: No History, Except For Hx Cardiac Problems: Yes Hx Hypertension: Yes Hx Diabetes: Yes Hx Cancer: No Hx Gastrointestinal Problems: No Hx Neurological Problems: No (Leha Garcia) Review of Systems All Other Systems: negative except mentioned in HPI (Leah Garcia) Physical Exam Vital Signs Date Time Temp Pulse Resp B/P (MAP) Pulse Ox O2 Delivery O2 Flow Rate FiO2 10/29/20 16:23 102.7 107 18 97/57 (70) 90 Room Air Sp02 EP Interpretation: abnormal - O2 sat 90%, temperature 102 F General Appearance: mild distress Head: normocephalic, atraumatic Eyes: bilateral eye normal inspection, bilateral eye PERRL ENT: hearing grossly normal, no angioedema, normal voice Neck: full range of motion, supple/symm/no masses Respiratory: no respiratory distress, no retraction, no accessory muscle use, speaking full sentences Cardiovascular #1: regular rate, rhythm, no edema Gastrointestinal: non-distended Rectal: deferred Musculoskeletal: back normal, gait/station normal Neurologic: alert, motor strength/tone normal, oriented x3, sensory intact, responsive, speech normal Psychiatric: judgement/insight normal, memory normal, mood/affect normal, no suicidal/homicidal ideation Skin: no rash Lymphatic: no adenopathy (Leah Garcia) Medical Decision Making PA Attestation ALL Diagnosis and treatment plan reviewed and discussed with my supervising physician Dr. Bradford (Leah Garcia) Diagnostic Impression: Primary Impression: Hypoxia Additional Impressions: Pneumonia due to COVID-19 virus Hyperglycemia Hyponatremia ER Course 55-year-old female with history of diabetes currently uncontrolled here co mplaining of few days of multiple episodes of nonbloody emesis. Also complains of shortness of breath. Denies headache and dizziness. Patient appears to be febrile, stating 90% on room air. Also complains of few bouts of nonbloody diarrhea. Denies constipation, chest pain, no other associate symptoms. Denies . Denies drug use, alcohol intake. Has not taken medication for symptom relief. Patient speaking full sentences, ambulatory, in no apparent distress. Ddx considered but are not limited to: Bronchitis, Covid pneumonia, hypoxia, NV, Angina, COPD, GERD, Vital signs: are WNL, pt. is afebrile H&PE are most consistent with hypoxia, hyponatremia, hyperglycemia, Covid pneumonia ORDERS: Covid ER order set ED INTERVENTIONS: NS bolus, Zofran, Pepcid, dexamethasone, Rocephin, azithromycin, Lovenox Patient was admitted with diagnosis of hypoxia, hyperglycemia, hyponatremia, Covid pneumonia to under supervision of : Sanchez pt stable at time of admission (Leah Garcia) ER Course I personally evaluated the patient and agree with the above assessment and plan. (Jose Cruz Bradford M.D.) EKG Diagnostic Results Rate: normal Rhythm: NSR ST Segments: no acute changes Other Impression No acute ST changes ASA given to the pt in ED: No (Leah Garcia) Chest X-Ray Diagnostic Results Chest X-Ray Diagnostic Results : Chest X-Ray Ordered: Yes # of Views/Limited/Complete: 1 View Indication: Shortness of Breath EP Interpretation: Yes SIMONA Xray: Interpretation reviewed, by supervising MD, and agrees with findings. Interpretation: other - Infiltrates right lower lobe Impression: Other - Pneumonia right lower lobe Electronically Signed by: Leah JARVIS Scribe Text Comparison: none Findings: Lungs and pleural spaces are clear. Heart size is normal. Impression: No acute process (Leah Garcia) Last Vital Signs Date Time Temp Pulse Resp B/P (MAP) Pulse Ox O2 Delivery O2 Flow Rate FiO2 10/29/20 16:23 102.7 107 18 97/57 (70) 90 Room Air (Leah Garcia) Referrals: NOT CHOSEN IPA/,REFERRING (PCP) Leah Garcia Oct 29, 2020 18:08 Jose Cruz Bradford M.D. Oct 29, 2020 18:51
[2020-10-29] MEDS ORDERED: Ketorolac 30mg Inj IV ONE (20:15)
[2020-10-30] MEDS ORDERED: BENAZEPRIL HCL10 MG ORAL (01:23)
[2020-10-30] MEDS ORDERED: JANUVIA100 MG ORAL (01:23)
[2020-10-30 04:00] VITALS: BP 131/82
[2020-10-30 06:55] VITALS: BP 131/82
[2020-10-30] MEDS ORDERED: Albuterol ud Inhalation HHN SCH (07:00)
[2020-10-30] MEDS ORDERED: Albuterol ud Inhalation HHN PRN (07:00)
[2020-10-30] MEDS ORDERED: Albuterol 90mcg Inhaler 8gm INH PRN (07:45)
[2020-10-30 08:00] VITALS: BP 154/75
[2020-10-30] MEDS: Enoxaparin 40mg Inj SUBQ SCH (08:32)
[2020-10-30] MEDS: Albuterol 90mcg Inhaler 8gm INH SCH ×4 (10:45→23:42)
[2020-10-30] MEDS: Benazepril 10mg tab ORAL SCH (10:45)
--- NOTE | 2020-10-30 11:33 | History & Physical ---
History and Physical History & Physicial 55-year-old female with history of multiple episodes of nonbloody emesis. + shortness of breath. Denies headache and dizziness. +fevers, 90% on room air. Also diarrhea. she admits to dizziness and thirst PMH: diabetes MEDS/ALLERGIES: reviewed and reconciled SOCIAL HISTORY: nonsmoker nondrinker PHYSICAL deferred due to COVID Laboratory Tests 10/29/20 16:40: White Blood Count 15.2H, Red Blood Count 4.48, Hemoglobin 12.3, Hematocrit 36.5L , Mean Corpuscular Volume 82, Mean Corpuscular Hemoglobin 27.4, Mean Corpuscular Hemoglobin Concent 33.6, Red Cell Distribution Width 14.4, Platelet Count 161, Mean Platelet Volume 6.2L, Neutrophils (%) (Auto) 87.0H, Lymphocytes (%) (Auto) 5.0L, Monocytes (%) (Auto) 7.2, Eosinophils (%) (Auto) 0.0, Basophils (%) (Auto) 0.7, Erythrocyte Sedimentation Rate 46H, D-Dimer 0.76H, Urine Color Pale yellow, Urine Appearance Cloudy, Urine pH 6.5, Urine Specific [place] 1.005, Urine Protein 2+H, Urine Glucose (UA) 4+H, Urine Ketones 3+H, Urine Blood 3+H, Urine Nitrite Negative, Urine Bilirubin Negative, Urine Urobilinogen Normal, Urine Leukocyte Esterase 3+H, Urine RBC 2-4H, Urine WBC TntcH, Urine Squamous Epithelial Cells Occasional, Urine Bacteria Few, Sodium Level 127L, Potassium Level 4.0, Chloride Level 92L, Carbon Dioxide Level 28, Anion Gap 7, Blood Urea Nitrogen 22H, Creatinine 0.9, Estimat Glomerular Filtration Rate > 60, Glucose Level 440H, Lactic Acid Level 2.10H, Calcium Level 9.1, Ferritin 380, Total Bilirubin 1.0, Aspartate Amino Transf (AST/SGOT) 13L, Alanine Aminotransferase (ALT/SGPT) 17, Alkaline Phosphatase 103, Troponin I 0.000, C-Reactive Protein, Quantitative 28.8H, Total Protein 8.3H, Albumin 2.9L, Globulin 5.4, Albumin/Globulin Ratio 0.5L, Lipase 124, Urine Opiates Screen Negative, Urine Barbiturates Screen Negative, Phencyclidine (PCP) Screen Negative, Urine Amphetamines Screen Negative, Urine Benzodiazepines Screen Negative, Urine Cocaine Screen Negative, Urine Marijuana (THC) Screen Negative, Serum Alcohol < 3 10/30/20 06:53: POC Whole Blood Glucose [Pending] 10/30/20 08:39: Hemoglobin A1c 12.9H IMPRESSION COVID pneumonia diabetes, uncontrolled dehydration BRIAN UTI PLAN Decadron ID to see IV antibiotics sugar management oxygen as needed monitor oxygen needs DVT prophylaxis home meds nutrition as able monitor labs and imaging Paulino Carlisle MD Oct 30, 2020 11:33
[2020-10-30 12:00] VITALS: BP 123/76
--- NOTE | 2020-10-30 12:00 | Consultation ---
DATE OF CONSULTATION: 10/30/2020 INFECTIOUS DISEASE CONSULTATION CONSULTING PHYSICIAN: Skye Owen MD. REFERRING PHYSICIAN: Paulino Carlisle MD. REASON FOR CONSULTATION: COVID-19 pneumonia. HISTORY OF PRESENTING ILLNESS: This is a 55-year-old lady with history of diabetes and high blood pressure, who comes in with fever, chills, and shortness of breath along with pain. She was found to have COVID-19 pneumonia and an Infectious Diseases consultation has been obtained for antibiotics. PAST MEDICAL HISTORY: 1. History of diabetes. 2. History of hypertension. SOCIAL HISTORY: She does not smoke, drink, or use drugs. FAMILY HISTORY: Noncontributory. REVIEW OF SYSTEMS: RESPIRATORY: She had fever and chills. She has shortness of breath. No cough. No chest pain. CARDIAC: No chest pain. No palpitation. No dizziness. No syncope. GASTROINTESTINAL: No nausea. No vomiting. No abdominal pain or diarrhea. MUSCULOSKELETAL: She does complain of headache. She has pain as well as dizziness. MEDICATIONS: As an inpatient, she is on dexamethasone, ceftriaxone, azithromycin, insulin, sitagliptin, metformin, benazepril, Protonix, Lovenox, albuterol, Tylenol, and Mylanta. ALLERGIES: No known drug allergies. PHYSICAL EXAMINATION: VITAL SIGNS: Temperature 98.7, T-max of 102.7, pulse 75, respiratory rate 18, blood pressure 113/82. O2 saturation of 99% on 2 liters of oxygen. Examination deferred due to COVID-19. LABORATORY DATA: White count 15.2, hemoglobin 12.3, hematocrit 36.5, MCV 82, platelet count of 161,000, with neutrophils of 87%. Sodium 127, potassium 4, chloride 92, bicarb 28, BUN 22, creatinine 0.9, glucose 440. Calcium 9.1. Ferritin 380. Total bilirubin 1, AST , ALT 17, and alkaline phosphatase 103. Total protein 8.3, albumin 2.9. Lipase of 124. UA showing too numerous to count white cells. Urine culture is showing gram-negative rods. COVID-19 test on 10/29/2020 was positive. Chest x-ray is showing no acute process. ASSESSMENT: This is a 55-year-old lady with history of diabetes and hypertension, who comes in with fever, chills along with shortness of breath and is found to have, 1. COVID-19 pneumonia. She is on 2 liters of oxygen with 99% O2 saturation. 2. Gram-negative urinary tract infection. 3. Diabetes. 4. Hypertension. 5. Leukocytosis. PLAN: 1. Continue dexamethasone, day #2. 2. We will order to start the patient on remdesivir. 3. Continue cefepime. 4. We will follow up cultures and adjust antibiotics accordingly. 5. Discontinue azithromycin. 6. Continue isolation. I would like to thank Dr. Carlisle for this consultation. Skye Owen M.D. DR: LYNN JOB#: [id number] CC: SHANIKA
[2020-10-30] MEDS: NovoLOG Insulin Flexpen SUBQ SCH ×3 (12:20→20:54)
[2020-10-30] MEDS ORDERED: NovoLOG Insulin Flexpen SUBQ ONE ×2 (12:30→17:55)
[2020-10-30 16:00] VITALS: BP 114/65
[2020-10-30] MEDS: Levemir Flexpen SUBQ SCH (17:07)
[2020-10-30] MEDS ORDERED: cefTRIAXone 1 GM in D5W 55 ML IVPB SCH (18:00)
[2020-10-30] MEDS ORDERED: Azithromycin 250mg tab ORAL SCH (18:00)
[2020-10-30] MEDS: dexAMETHasone 10mg/ml Inj IV SCH (18:07)
[2020-10-30 20:00] VITALS: BP 121/69
[2020-10-30] MEDS ORDERED: Loading Dose:Remdesivir 200mg/NS 210ml IV SCH ×2 (20:00)
[2020-10-30] MEDS: Cefepime HCl 1 GM in D5W 55 ML IVPB SCH (21:00)
[2020-10-31] VITALS: BP 124/73
[2020-10-31] MEDS ORDERED: Zolpidem 5mg tab ORAL PRN (03:45)
[2020-10-31] MEDS: Albuterol 90mcg Inhaler 8gm INH SCH ×6 (03:49→23:00)
[2020-10-31 04:00] VITALS: BP 151/65
[2020-10-31] MEDS: NovoLOG Insulin Flexpen SUBQ SCH ×4 (06:36→21:27)
[2020-10-31 08:00] VITALS: BP 143/78
[2020-10-31 08:04] LABS: ALANINE AMINOTRANSFERASE 19 U/L (12-78); ALBUMIN 2.3 G/DL (3.4-5.0); ALBUMIN/GLOBULIN RATIO 0.6 (1.0-2.7); ALKALINE PHOSPHATASE 106 U/L (46-116); ANION GAP 5 mmol/L (5-15); ASPARTATE AMINO TRANSFERASE 14 U/L (15-37); BILIRUBIN,DIRECT 0.2 MG/DL (0.0-0.3); BILIRUBIN,TOTAL 0.3 MG/DL (0.2-1.0); BLOOD UREA NITROGEN 19 mg/dL (7-18); CALCIUM 8.8 MG/DL (8.5-10.1); CARBON DIOXIDE 28 MMOL/L (21-32); CHLORIDE 100 MMOL/L (98-107); CREATININE 0.4 MG/DL (0.55-1.30); POTASSIUM 4.2 MMOL/L (3.5-5.1); SODIUM 133 MMOL/L (136-145)
[2020-10-31] MEDS: Benazepril 10mg tab ORAL SCH (08:05)
[2020-10-31 08:08] LABS: HEMATOCRIT 33.7 % (37.0-47.0); HEMOGLOBIN 10.9 G/DL (12.0-16.0); MEAN CORPUSCULAR VOLUME 85 FL (80-99); PLATELET COUNT 170 K/UL (150-450); RED BLOOD COUNT 3.99 M/UL (4.20-5.40); RED CELL DISTRIBUTION WIDTH 13.9 % (11.6-14.8); WHITE BLOOD COUNT 9.4 K/UL (4.8-10.8)
[2020-10-31] MEDS: Enoxaparin 40mg Inj SUBQ SCH (08:08)
[2020-10-31] MEDS: Levemir Flexpen SUBQ SCH ×2 (08:13→17:12)
[2020-10-31] MEDS: Cefepime HCl 1 GM in D5W 55 ML IVPB SCH ×2 (09:20→22:00)
[2020-10-31] MEDS ORDERED: Tubing IV Secondary IV ONE (09:27)
--- NOTE | 2020-10-31 09:33 | Diagnostic Imaging Report ---
EXAM: XR Chest, 1 View CLINICAL HISTORY: SOB TECHNIQUE: Frontal view of the chest. COMPARISON: Chest radiograph October 29, 2020. FINDINGS: Lungs: Unremarkable. No consolidation. Pleural space: Unremarkable. No pneumothorax. Heart: Unremarkable. No cardiomegaly. Mediastinum: Unremarkable. Bones/joints: Unremarkable. IMPRESSION: No focal infiltrate.
[2020-10-31] MEDS: Milk of Magnesia 30ml Ud ORAL PRN ×2 (11:50→12:12)
[2020-10-31 11:57] VITALS: BP 132/80
--- NOTE | 2020-10-31 12:10 | Diagnostic Imaging Report ---
EXAM: XR Abdomen, 2 Views CLINICAL HISTORY: PAIN TECHNIQUE: Frontal view of the abdomen/pelvis with upright view of the abdomen. COMPARISON: None FINDINGS: Hardware: None. Abdomen: Nonobstructive bowel gas pattern. Large amount of stool in the colon and rectum. No free air. Bones: Degenerative changes of the spine. Soft tissues: Normal. Lower chest: Normal. IMPRESSION: 1. Nonobstructive bowel gas pattern. 2. Large amount of stool in the colon and rectum is suggestive of constipation.
[2020-10-31] MEDS: Bisacodyl EC 5mg tab ORAL PRN (14:23)
--- NOTE | 2020-10-31 14:51 | General Progress Note ---
Subjective Allergies: Coded Allergies: No Known Allergies (Unverified , 01/28/20) Subjective care noted improved not using oxygen Objective Last 24 Hour Vital Signs Date Time Temp Pulse Resp B/P (MAP) Pulse Ox O2 Delivery O2 Flow Rate FiO2 10/31/20 11:57 96.6 72 18 132/80 (97) 98 10/31/20 09:00 Nasal Cannula 2.0 10/31/20 09:00 Nasal Cannula 2.0 10/31/20 08:36 97.3 10/31/20 08:05 143/78 10/31/20 08:00 98.2 71 18 143/78 (99) 98 10/31/20 04:00 97.3 84 18 151/65 (93) 97 10/31/20 00:00 98.3 79 18 124/73 (90) 96 10/30/20 21:00 Nasal Cannula 2.0 10/30/20 20:00 97.5 82 20 121/69 (86) 96 10/30/20 16:00 97.2 77 18 114/65 (81) 98 Intake and Output 10/30/20 10/31/20 19:00 07:00 Intake Total 1500 ml 835 ml Balance 1500 ml 835 ml Intake Oral 600 ml 480 ml IV Total 900 ml 355 ml # Voids 2 3 Laboratory Tests 10/30/20 20:28: POC Whole Blood Glucose 460H 10/30/20 22:41: POC Whole Blood Glucose [Pending] 10/31/20 06:14: POC Whole Blood Glucose 312H 10/31/20 06:20: White Blood Count 9.4, Red Blood Count 3.99L, Hemoglobin 10.9L, Hematocrit 33.7L , Mean Corpuscular Volume 85, Mean Corpuscular Hemoglobin 27.4, Mean Corpuscular Hemoglobin Concent 32.4, Red Cell Distribution Width 13.9, Platelet Count 170, Mean Platelet Volume 6.0L, Neutrophils (%) (Auto) , Lymphocytes (%) (Auto) , Monocytes (%) (Auto) , Eosinophils (%) (Auto) , Basophils (%) (Auto) , Differential Total Cells Counted 100, Neutrophils % (Manual) 92H, Lymphocytes % (Manual) 7L, Monocytes % (Manual) 1, Eosinophils % (Manual) 0, Basophils % (Manual) 0, Band Neutrophils 0, Platelet Estimate Adequate, Platelet Morphology Normal, Hypochromasia 1+, Sodium Level 133L, Potassium Level 4.2, Chloride Level 100, Carbon Dioxide Level 28, Anion Gap 5, Blood Urea Nitrogen 19H, Creatinine 0.4L, Estimat Glomerular Filtration Rate > 60, Glucose Level 319H, Calcium Level 8.8, Total Bilirubin 0.3, Direct Bilirubin 0.2, Aspartate Amino Transf (AST/SGOT) 14L, Alanine Aminotransferase (ALT/SGPT) 19, Alkaline Phosphatase 106, Total Protein 6.4, Albumin 2.3L, Globulin 4.1, Albumin/Globulin Ratio 0.6L 10/31/20 11:52: POC Whole Blood Glucose 302H Height (Feet): 5 Height (Inches): 2.00 Weight (Pounds): 133 Objective deferred due to COVID Assessment/Plan Assessment/Plan: IMPRESSION COVID pneumonia diabetes, uncontrolled dehydration BRIAN UTI PLAN Decadron ID noted IV antibiotics levimir and adjust; likely needed at home oxygen as needed monitor oxygen needs DVT prophylaxis home meds nutrition as able monitor labs and imaging hope to dc in am impression, plan, and exam edited and reviewed in detail care discussed with Paulino Esteban MD Oct 31, 2020 14:51
--- NOTE | 2020-10-31 15:08 | Infectious Diseases Prog Note ---
Assessment/Plan Assessment/Plan A. Gram negative sepsis UTI/ Pyelonephritis COVID19 disease DM + hyperglycemia Anemia HPN P: 1. Continue dexamethasone, day #3 2. Continue remdesivir. 3. Continue cefepime. 4. We will follow up cultures and adjust antibiotics accordingly. 5. Continue isolation. Subjective ROS Limited/Unobtainable: Yes HEENT: Reports: no symptoms Respiratory: Reports: dry cough Genitourinary: Reports: other - left flank pain Allergies: Coded Allergies: No Known Allergies (Unverified , 01/28/20) Objective Last 24 Hour Vital Signs Date Time Temp Pulse Resp B/P (MAP) Pulse Ox O2 Delivery O2 Flow Rate FiO2 10/31/20 11:57 96.6 72 18 132/80 (97) 98 10/31/20 09:00 Nasal Cannula 2.0 10/31/20 09:00 Nasal Cannula 2.0 10/31/20 08:36 97.3 10/31/20 08:05 143/78 10/31/20 08:00 98.2 71 18 143/78 (99) 98 10/31/20 04:00 97.3 84 18 151/65 (93) 97 10/31/20 00:00 98.3 79 18 124/73 (90) 96 10/30/20 21:00 Nasal Cannula 2.0 10/30/20 20:00 97.5 82 20 121/69 (86) 96 10/30/20 16:00 97.2 77 18 114/65 (81) 98 Height (Feet): 5 Height (Inches): 2.00 Weight (Pounds): 133 General Appearance: no acute distress HEENT: mucous membranes moist Respiratory/Chest: other - oxygen by nasal cannula Cardiovascular: normal rate Abdomen: other - soft, left upper abdomen tenderness Extremities: no edema Neurologic/Psychiatric: alert, responsive Microbiology Date/Time Source Procedure Growth Status 10/29/20 16:45 Blood Blood Culture - Preliminary Resulted 10/29/20 16:40 Urine,Clean Catch Urine Culture - Preliminary Gram Negative Harsh Resulted 10/29/20 16:40 Nasopharynx SARS-CoV-2 RdRp Gene Assay - Final Complete 10/29/20 16:30 Blood Blood Culture - Preliminary Gram Negative Harsh Resulted Laboratory Tests Test 10/30/20 20:28 10/30/20 22:41 10/31/20 06:14 10/31/20 06:20 POC Whole Blood Glucose 460 MG/DL (74-106) H Pending 312 MG/DL (74-106) H White Blood Count 9.4 K/UL (4.8-10.8) Red Blood Count 3.99 M/UL (4.20-5.40) L Hemoglobin 10.9 G/DL (12.0-16.0) L Hematocrit 33.7 % (37.0-47.0) L Mean Corpuscular Volume 85 FL (80-99) Mean Corpuscular Hemoglobin 27.4 PG (27.0-31.0) Mean Corpuscular Hemoglobin Concent 32.4 G/DL (32.0-36.0) Red Cell Distribution Width 13.9 % (11.6-14.8) Platelet Count 170 K/UL (150-450) Mean Platelet Volume 6.0 FL (6.5-10.1) L Neutrophils (%) (Auto) % (45.0-75.0) Lymphocytes (%) (Auto) % (20.0-45.0) Monocytes (%) (Auto) % (1.0-10.0) Eosinophils (%) (Auto) % (0.0-3.0) Basophils (%) (Auto) % (0.0-2.0) Differential Total Cells Counted 100 Neutrophils % (Manual) 92 % (45-75) H Lymphocytes % (Manual) 7 % (20-45) L Monocytes % (Manual) 1 % (1-10) Eosinophils % (Manual) 0 % (0-3) Basophils % (Manual) 0 % (0-2) Band Neutrophils 0 % (0-8) Platelet Estimate Adequate Platelet Morphology Normal Hypochromasia 1+ Sodium Level 133 MMOL/L (136-145) L Potassium Level 4.2 MMOL/L (3.5-5.1) Chloride Level 100 MMOL/L (98-107) Carbon Dioxide Level 28 MMOL/L (21-32) Anion Gap 5 mmol/L (5-15) Blood Urea Nitrogen 19 mg/dL (7-18) H Creatinine 0.4 MG/DL (0.55-1.30) L Estimat Glomerular Filtration Rate > 60 mL/min (>60) Glucose Level 319 MG/DL (74-106) H Calcium Level 8.8 MG/DL (8.5-10.1) Total Bilirubin 0.3 MG/DL (0.2-1.0) Direct Bilirubin 0.2 MG/DL (0.0-0.3) Aspartate Amino Transf (AST/SGOT) 14 U/L (15-37) L Alanine Aminotransferase (ALT/SGPT) 19 U/L (12-78) Alkaline Phosphatase 106 U/L (46-116) Total Protein 6.4 G/DL (6.4-8.2) Albumin 2.3 G/DL (3.4-5.0) L Globulin 4.1 g/dL Albumin/Globulin Ratio 0.6 (1.0-2.7) L Test 10/31/20 11:52 POC Whole Blood Glucose 302 MG/DL (74-106) H Current Medications Medications (Trade) Dose Ordered Sig/Velia Route PRN Reason Start Time Stop Time Status Last Admin Dose Admin Acetaminophen (Tylenol) 650 mg Q4H PRN ORAL Mild Pain (Pain Scale 1-3) 10/30/20 07:00 11/29/20 06:59 10/31/20 08:06 Al Hydroxide/Mg Hydroxide (Mylanta) 30 ml Q4H PRN ORAL UPSET STOMACH 10/30/20 07:00 11/29/20 06:59 10/30/20 18:37 Albuterol Sulfate (Proventil MDI) 2 puff Q4H PRN INH Shortness of Breath 10/30/20 07:45 01/28/21 07:44 Albuterol Sulfate (Proventil MDI) 2 puff Q4HRT INH 10/30/20 11:00 01/28/21 10:59 10/31/20 06:39 Benazepril HCl (Lotensin) 10 mg DAILY ORAL 10/30/20 10:00 11/29/20 09:59 10/31/20 08:05 Bisacodyl (Dulcolax) 5 mg DAILYPRN PRN ORAL Constipation 10/31/20 13:45 01/29/21 13:44 10/31/20 14:23 Cefepime HCl 1 gm/ Dextrose 55 ml @ 110 mls/hr EVERY 12 HOURS IVPB 10/30/20 21:00 11/06/20 20:59 10/31/20 09:20 Dexamethasone Sodium Phosphate (Decadron 10mg/ ml Inj) 6 mg Q24H IV 10/30/20 18:00 11/07/20 18:01 10/30/20 18:07 Dextrose (Dextrose 50%) 25 ml Q30M PRN IV Hypoglycemia 10/30/20 07:00 01/28/21 06:59 Dextrose (Dextrose 50%) 50 ml Q30M PRN IV Hypoglycemia 10/30/20 07:00 01/28/21 06:59 Docusate Sodium (Colace) 100 mg TWICE A DAY ORAL 10/31/20 18:00 11/30/20 17:59 Enoxaparin Sodium (Lovenox) 40 mg DAILY SUBQ 10/30/20 09:00 01/28/21 08:59 10/31/20 08:08 Insulin Aspart (NovoLOG) BEFORE MEALS AND HS SUBQ 10/30/20 11:30 01/28/21 11:29 10/31/20 11:54 Insulin Detemir (Levemir) 18 units BID SUBQ 10/31/20 18:00 01/28/21 17:59 Magnesium Hydroxide (Mom) 30 ml DAILYPRN PRN ORAL Constipation 10/31/20 11:30 11/30/20 11:29 Metformin HCl (Glucophage) 850 mg TWICE A DAY ORAL 10/30/20 10:00 11/29/20 09:59 10/31/20 08:06 Pantoprazole (Protonix) 40 mg DAILY ORAL 10/30/20 09:00 11/29/20 08:59 10/31/20 08:05 Remdesivir 100 mg/ Sodium Chloride 250 ml @ 250 mls/hr Q24H IV 10/31/20 20:00 11/03/20 20:59 Sitagliptin Phosphate (Januvia) 100 mg DAILY ORAL 10/30/20 10:00 11/29/20 09:59 10/31/20 08:06 Sodium Chloride 1,000 ml @ 100 mls/hr Q10H IV 10/30/20 07:45 11/29/20 07:44 10/31/20 14:07 Zolpidem Tartrate (Ambien) 5 mg HSPRN PRN ORAL Insomnia 10/31/20 03:45 11/07/20 03:44 Pedro Tanner MD Oct 31, 2020 15:08
[2020-10-31 16:04] VITALS: BP 126/62
[2020-10-31] MEDS: Docusate 100mg cap ORAL SCH (17:09)
[2020-10-31] MEDS: dexAMETHasone 10mg/ml Inj IV SCH (17:33)
[2020-10-31 20:00] VITALS: BP 136/76
[2020-10-31] MEDS: Maintenance Dose:Remdesivir 100mg/NS 230ml x 4 Doses IV SCH ×2 (20:36)
[2020-11-01] VITALS (7 sets, daily range): BP systolic 113–163; BP diastolic 66–82
[2020-11-01] MEDS: Albuterol 90mcg Inhaler 8gm INH SCH ×6 (03:19→23:29)
[2020-11-01] MEDS: Milk of Magnesia 30ml Ud ORAL PRN (05:16)
[2020-11-01] MEDS: NovoLOG Insulin Flexpen SUBQ SCH ×4 (05:32→21:07)
[2020-11-01 05:38] LABS: HEMATOCRIT 31.4 % (37.0-47.0); HEMOGLOBIN 10.4 G/DL (12.0-16.0); MEAN CORPUSCULAR VOLUME 81 FL (80-99); PLATELET COUNT 159 K/UL (150-450); RED BLOOD COUNT 3.87 M/UL (4.20-5.40); RED CELL DISTRIBUTION WIDTH 14.2 % (11.6-14.8); WHITE BLOOD COUNT 5.1 K/UL (4.8-10.8)
[2020-11-01 05:58] LABS: ALANINE AMINOTRANSFERASE 16 U/L (12-78); ALBUMIN 2.3 G/DL (3.4-5.0); ALBUMIN/GLOBULIN RATIO 0.5 (1.0-2.7); ALKALINE PHOSPHATASE 106 U/L (46-116); ANION GAP 7 mmol/L (5-15); ASPARTATE AMINO TRANSFERASE 11 U/L (15-37); BILIRUBIN,DIRECT 0.2 MG/DL (0.0-0.3); BILIRUBIN,TOTAL 0.3 MG/DL (0.2-1.0); BLOOD UREA NITROGEN 15 mg/dL (7-18); CALCIUM 8.6 MG/DL (8.5-10.1); CARBON DIOXIDE 26 MMOL/L (21-32); CHLORIDE 101 MMOL/L (98-107); CREATININE 0.4 MG/DL (0.55-1.30); POTASSIUM 3.3 MMOL/L (3.5-5.1); SODIUM 133 MMOL/L (136-145)
[2020-11-01] MEDS: Enoxaparin 40mg Inj SUBQ SCH (08:36)
[2020-11-01] MEDS: Cefepime HCl 1 GM in D5W 55 ML IVPB SCH ×2 (08:37→23:00)
[2020-11-01] MEDS: Docusate 100mg cap ORAL SCH ×2 (08:37→17:44)
[2020-11-01] MEDS: Benazepril 10mg tab ORAL SCH (08:38)
[2020-11-01] MEDS: Levemir Flexpen SUBQ SCH ×2 (08:40→17:42)
--- NOTE | 2020-11-01 09:38 | General Progress Note ---
Subjective Allergies: Coded Allergies: No Known Allergies (Unverified , 01/28/20) Subjective care noted improved not using oxygen Objective Last 24 Hour Vital Signs Date Time Temp Pulse Resp B/P (MAP) Pulse Ox O2 Delivery O2 Flow Rate FiO2 11/01/20 08:38 113/66 11/01/20 08:00 97.7 74 18 158/80 (106) 98 11/01/20 04:00 97.0 78 18 113/66 (82) 98 11/01/20 00:00 98.0 73 18 131/72 (91) 96 10/31/20 21:00 Nasal Cannula 2.0 10/31/20 20:00 97.0 72 18 136/76 (96) 98 10/31/20 16:04 97.6 75 18 126/62 (83) 97 10/31/20 11:57 96.6 72 18 132/80 (97) 98 Intake and Output 10/31/20 11/01/20 19:00 07:00 Intake Total 480 ml 240 ml Balance 480 ml 240 ml Intake Oral 480 ml 240 ml # Voids 3 2 Laboratory Tests 10/31/20 11:52: POC Whole Blood Glucose 302H 10/31/20 21:21: POC Whole Blood Glucose [Pending] 11/01/20 04:05: White Blood Count 5.1, Red Blood Count 3.87L, Hemoglobin 10.4L, Hematocrit 31.4L , Mean Corpuscular Volume 81, Mean Corpuscular Hemoglobin 27.0, Mean Corpuscular Hemoglobin Concent 33.2, Red Cell Distribution Width 14.2, Platelet Count 159, Mean Platelet Volume 6.5, Neutrophils (%) (Auto) , Lymphocytes (%) (Auto) , Monocytes (%) (Auto) , Eosinophils (%) (Auto) , Basophils (%) (Auto) , Differential Total Cells Counted 100, Neutrophils % (Manual) 84H, Lymphocytes % (Manual) 14L, Monocytes % (Manual) 2, Eosinophils % (Manual) 0, Basophils % (Manual) 0, Band Neutrophils 0, Platelet Estimate Adequate, Platelet Morphology Normal, Anisocytosis 1+, Sodium Level 133L, Potassium Level 3.3L, Chloride Level 101, Carbon Dioxide Level 26, Anion Gap 7, Blood Urea Nitrogen 15, Creatinine 0.4L, Estimat Glomerular Filtration Rate > 60, Glucose Level 283H, Calcium Level 8.6, Total Bilirubin 0.3, Direct Bilirubin 0.2, Aspartate Amino Transf (AST/SG OT) 11L, Alanine Aminotransferase (ALT/SGPT) 16, Alkaline Phosphatase 106, Total Protein 6.8, Albumin 2.3L, Globulin 4.5, Albumin/Globulin Ratio 0.5L Height (Feet): 5 Height (Inches): 2.00 Weight (Pounds): 133 Objective deferred due to COVID Assessment/Plan Assessment/Plan: IMPRESSION COVID pneumonia diabetes, uncontrolled dehydration BRIAN UTI dizziness urosepsis PLAN Decadron- dc per ID ID noted- ok for Levaquin on dc IV antibiotics levimir and adjust; likely needed at home- discussed oxygen as needed- dc for now monitor oxygen needs DVT prophylaxis home meds nutrition as able monitor labs and imaging hope to dc in am impression, plan, and exam edited and reviewed in detail care discussed with Paulino Esteban MD Nov 01, 2020 09:38
[2020-11-01] MEDS: Bisacodyl EC 5mg tab ORAL PRN (14:45)
[2020-11-01] MEDS: dexAMETHasone 10mg/ml Inj IV SCH (17:44)
[2020-11-01] MEDS: Maintenance Dose:Remdesivir 100mg/NS 230ml x 4 Doses IV SCH ×2 (20:58)
[2020-11-02] VITALS: BP 133/72
[2020-11-02] MEDS: Albuterol 90mcg Inhaler 8gm INH SCH ×4 (03:00→16:08)
[2020-11-02 04:00] VITALS: BP 145/75
[2020-11-02] MEDS: Milk of Magnesia 30ml Ud ORAL PRN (06:38)
[2020-11-02] MEDS: NovoLOG Insulin Flexpen SUBQ SCH ×3 (06:45→16:45)
[2020-11-02 08:00] VITALS: BP 133/69
[2020-11-02] MEDS: Cefepime HCl 1 GM in D5W 55 ML IVPB SCH (08:51)
[2020-11-02] MEDS: Docusate 100mg cap ORAL SCH (08:51)
[2020-11-02] MEDS: Benazepril 10mg tab ORAL SCH (08:51)
[2020-11-02] MEDS: Levemir Flexpen SUBQ SCH (08:55)
[2020-11-02] MEDS ORDERED: Enoxaparin 60mg Inj SUBQ SCH (09:15)
[2020-11-02 10:20] LABS: BASOPHILS % (AUTO) 1.1 % (0.0-2.0); EOSINOPHILS % (AUTO) 0.3 % (0.0-3.0); HEMATOCRIT 34.2 % (37.0-47.0); HEMOGLOBIN 11.5 G/DL (12.0-16.0); LYMPHOCYTES % (AUTO) 19.9 % (20.0-45.0); MEAN CORPUSCULAR VOLUME 81 FL (80-99); MONOCYTES % (AUTO) 8.6 % (1.0-10.0); NEUTROPHILS % (AUTO) 70.2 % (45.0-75.0); PLATELET COUNT 201 K/UL (150-450); RED BLOOD COUNT 4.24 M/UL (4.20-5.40); RED CELL DISTRIBUTION WIDTH 14.9 % (11.6-14.8); WHITE BLOOD COUNT 6.1 K/UL (4.8-10.8)
[2020-11-02 10:48] LABS: ALANINE AMINOTRANSFERASE 22 U/L (12-78); ALBUMIN 2.6 G/DL (3.4-5.0); ALBUMIN/GLOBULIN RATIO 0.6 (1.0-2.7); ALKALINE PHOSPHATASE 136 U/L (46-116); ANION GAP 5 mmol/L (5-15); ASPARTATE AMINO TRANSFERASE 21 U/L (15-37); BILIRUBIN,DIRECT < 0.1 MG/DL (0.0-0.3); BILIRUBIN,TOTAL 0.3 MG/DL (0.2-1.0); BLOOD UREA NITROGEN 18 mg/dL (7-18); CARBON DIOXIDE 30 MMOL/L (21-32); CHLORIDE 97 MMOL/L (98-107); CREATININE 0.8 MG/DL (0.55-1.30); POTASSIUM 3.7 MMOL/L (3.5-5.1); SODIUM 132 MMOL/L (136-145)
[2020-11-02 12:00] VITALS: BP 130/65
[2020-11-02 16:00] VITALS: BP 144/65
[2020-11-02] MEDS ORDERED: LEVEMIR FL100 UNIT/2 SQ (16:29)
[2020-11-02] MEDS ORDERED: LEVOFLOXACIN500 MG ORAL (16:30)
--- NOTE | 2020-11-02 16:40 | Infectious Diseases Prog Note ---
Assessment/Plan Assessment/Plan antibiotics : cefepime, remdesivir A 1. covid 19 pneumonia on room air 2. e.coli sepsis secondary to UTI 3. e.coli UTI 4. diabetes mellitus 5. hypertension 6. leucocytosis resolved P 1. continue remdesivir day 4 2. continue dexamethasone day 5 3. d/c cefepime 4. start and continue po levoquin 5 more days 5. continue isolation Subjective Constitutional: Denies: fever, chills Respiratory: Denies: shortness of breath, dry cough Gastrointestinal/Abdominal: Denies: nausea, vomiting, diarrhea Musculoskeletal: Denies: pain Allergies: Coded Allergies: No Known Allergies (Unverified , 01/28/20) Objective Last 24 Hour Vital Signs Date Time Temp Pulse Resp B/P (MAP) Pulse Ox O2 Delivery O2 Flow Rate FiO2 11/02/20 12:00 97.9 80 18 130/65 (86) 98 11/02/20 09:00 Room Air 11/02/20 08:51 133/69 11/02/20 08:00 97.9 83 18 133/69 (90) 98 11/02/20 04:00 98.2 87 18 145/75 (98) 98 11/02/20 00:00 97.3 84 18 133/72 (92) 95 11/01/20 21:00 Room Air 11/01/20 20:00 97.0 71 18 134/81 (98) 97 11/01/20 17:57 79 141/78 (99) Height (Feet): 5 Height (Inches): 2.00 Weight (Pounds): 133 Laboratory Tests Test 11/01/20 21:03 11/02/20 10:00 11/02/20 11:59 11/02/20 16:09 POC Whole Blood Glucose Pending 266 MG/DL (74-106) H 158 MG/DL (74-106) H White Blood Count 6.1 K/UL (4.8-10.8) Red Blood Count 4.24 M/UL (4.20-5.40) Hemoglobin 11.5 G/DL (12.0-16.0) L Hematocrit 34.2 % (37.0-47.0) L Mean Corpuscular Volume 81 FL (80-99) Mean Corpuscular Hemoglobin 27.1 PG (27.0-31.0) Mean Corpuscular Hemoglobin Concent 33.6 G/DL (32.0-36.0) Red Cell Distribution Width 14.9 % (11.6-14.8) H Platelet Count 201 K/UL (150-450) Mean Platelet Volume 6.3 FL (6.5-10.1) L Neutrophils (%) (Auto) 70.2 % (45.0-75.0) Lymphocytes (%) (Auto) 19.9 % (20.0-45.0) L Monocytes (%) (Auto) 8.6 % (1.0-10.0) Eosinophils (%) (Auto) 0.3 % (0.0-3.0) Basophils (%) (Auto) 1.1 % (0.0-2.0) Sodium Level 132 MMOL/L (136-145) L Potassium Level 3.7 MMOL/L (3.5-5.1) Chloride Level 97 MMOL/L (98-107) L Carbon Dioxide Level 30 MMOL/L (21-32) Anion Gap 5 mmol/L (5-15) Blood Urea Nitrogen 18 mg/dL (7-18) Creatinine 0.8 MG/DL (0.55-1.30) # Estimat Glomerular Filtration Rate > 60 mL/min (>60) Glucose Level 284 MG/DL (74-106) H Calcium Level 9.0 MG/DL (8.5-10.1) Total Bilirubin 0.3 MG/DL (0.2-1.0) Direct Bilirubin < 0.1 MG/DL (0.0-0.3) Aspartate Amino Transf (AST/SGOT) 21 U/L (15-37) Alanine Aminotransferase (ALT/SGPT) 22 U/L (12-78) Alkaline Phosphatase 136 U/L (46-116) H Total Protein 7.2 G/DL (6.4-8.2) Albumin 2.6 G/DL (3.4-5.0) L Globulin 4.6 g/dL Albumin/Globulin Ratio 0.6 (1.0-2.7) L Current Medications Medications (Trade) Dose Ordered Sig/Velia Route PRN Reason Start Time Stop Time Status Last Admin Dose Admin Acetaminophen (Tylenol) 650 mg Q4H PRN ORAL Mild Pain (Pain Scale 1-3) 10/30/20 07:00 11/29/20 06:59 11/02/20 06:38 Al Hydroxide/Mg Hydroxide (Mylanta) 30 ml Q4H PRN ORAL UPSET STOMACH 10/30/20 07:00 11/29/20 06:59 10/30/20 18:37 Albuterol Sulfate (Proventil MDI) 2 puff Q4H PRN INH Shortness of Breath 10/30/20 07:45 01/28/21 07:44 Albuterol Sulfate (Proventil MDI) 2 puff Q4HRT INH 10/30/20 11:00 01/28/21 10:59 11/02/20 16:08 Benazepril HCl (Lotensin) 10 mg DAILY ORAL 10/30/20 10:00 11/29/20 09:59 11/02/20 08:51 Bisacodyl (Dulcolax) 5 mg DAILYPRN PRN ORAL Constipation 10/31/20 13:45 01/29/21 13:44 11/01/20 14:45 Cefepime HCl 1 gm/ Dextrose 55 ml @ 110 mls/hr EVERY 12 HOURS IVPB 10/30/20 21:00 11/06/20 20:59 11/02/20 08:51 Dexamethasone Sodium Phosphate (Decadron 10mg/ ml Inj) 6 mg Q24H IV 10/30/20 18:00 11/07/20 18:01 11/01/20 17:44 Dextrose (Dextrose 50%) 25 ml Q30M PRN IV Hypoglycemia 10/30/20 07:00 01/28/21 06:59 Dextrose (Dextrose 50%) 50 ml Q30M PRN IV Hypoglycemia 10/30/20 07:00 01/28/21 06:59 Docusate Sodium (Colace) 100 mg TWICE A DAY ORAL 10/31/20 18:00 11/30/20 17:59 11/02/20 08:51 Enoxaparin Sodium (Lovenox) 40 mg DAILY SUBQ 11/03/20 09:00 02/01/21 08:59 Insulin Aspart (NovoLOG) BEFORE MEALS AND HS SUBQ 10/30/20 11:30 01/28/21 11:29 11/02/20 12:01 Insulin Detemir (Levemir) 18 units BID SUBQ 10/31/20 18:00 01/28/21 17:59 11/02/20 08:55 Magnesium Hydroxide (Mom) 30 ml DAILYPRN PRN ORAL Constipation 10/31/20 11:30 11/30/20 11:29 11/02/20 06:38 Metformin HCl (Glucophage) 850 mg TWICE A DAY ORAL 10/30/20 10:00 11/29/20 09:59 11/02/20 08:51 Pantoprazole (Protonix) 40 mg DAILY ORAL 10/30/20 09:00 11/29/20 08:59 11/02/20 08:51 Remdesivir 100 mg/ Sodium Chloride 250 ml @ 250 mls/hr Q24H IV 10/31/20 20:00 11/03/20 20:59 11/01/20 20:58 Sitagliptin Phosphate (Januvia) 100 mg DAILY ORAL 10/30/20 10:00 11/29/20 09:59 11/02/20 08:52 Sodium Chloride 1,000 ml @ 100 mls/hr Q10H IV 10/30/20 07:45 11/29/20 07:44 11/02/20 16:08 Zolpidem Tartrate (Ambien) 5 mg HSPRN PRN ORAL Insomnia 10/31/20 03:45 11/07/20 03:44 Skye Owen MD Nov 02, 2020 16:40
--- NOTE | 2020-11-02 16:54 | General Progress Note ---
Subjective Allergies: Coded Allergies: No Known Allergies (Unverified , 01/28/20) Subjective care noted improved and no further dizziness not using oxygen Objective Last 24 Hour Vital Signs Date Time Temp Pulse Resp B/P (MAP) Pulse Ox O2 Delivery O2 Flow Rate FiO2 11/02/20 16:00 97.5 80 18 144/65 (91) 99 11/02/20 12:00 97.9 80 18 130/65 (86) 98 11/02/20 09:00 Room Air 11/02/20 08:51 133/69 11/02/20 08:00 97.9 83 18 133/69 (90) 98 11/02/20 04:00 98.2 87 18 145/75 (98) 98 11/02/20 00:00 97.3 84 18 133/72 (92) 95 11/01/20 21:00 Room Air 11/01/20 20:00 97.0 71 18 134/81 (98) 97 11/01/20 17:57 79 141/78 (99) Intake and Output 11/01/20 11/02/20 19:00 07:00 Intake Total 1000 ml 480 ml Balance 1000 ml 480 ml Intake Oral 1000 ml 480 ml # Voids 3 2 Laboratory Tests 11/01/20 21:03: POC Whole Blood Glucose [Pending] 11/02/20 10:00: White Blood Count 6.1, Red Blood Count 4.24, Hemoglobin 11.5L, Hematocrit 34.2L, Mean Corpuscular Volume 81, Mean Corpuscular Hemoglobin 27.1, Mean Corpuscular Hemoglobin Concent 33.6, Red Cell Distribution Width 14.9H, Platelet Count 201, Mean Platelet Volume 6.3L, Neutrophils (%) (Auto) 70.2, Lymphocytes (%) (Auto) 19.9L, Monocytes (%) (Auto) 8.6, Eosinophils (%) (Auto) 0.3, Basophils (%) (Auto) 1.1, Sodium Level 132L, Potassium Level 3.7, Chloride Level 97L, Carbon Dioxide Level 30, Anion Gap 5, Blood Urea Nitrogen 18, Creatinine 0.8#, Estimat Glomerular Filtration Rate > 60, Glucose Level 284H, Calcium Level 9.0, Total Bilirubin 0.3, Direct Bilirubin < 0.1, Aspartate Amino Transf (AST/SGOT) 21, Alanine Aminotransferase (ALT/SGPT) 22, Alkaline Phosphatase 136H, Total Protein 7.2, Albumin 2.6L, Globulin 4.6, Albumin/Globulin Ratio 0.6L 11/02/20 11:59: POC Whole Blood Glucose 266H 11/02/20 16:09: POC Whole Blood Glucose 158H Height (Feet): 5 Height (Inches): 2.00 Weight (Pounds): 133 Objective deferred due to COVID Assessment/Plan Assessment/Plan: IMPRESSION COVID pneumonia diabetes, uncontrolled dehydration BRIAN UTI dizziness urosepsis PLAN Decadron- dc per ID ID noted- ok for Levaquin on dc IV antibiotics levimir and adjust; likely needed at home- discussed oxygen as needed- dc for now monitor oxygen needs DVT prophylaxis home meds nutrition as able monitor labs and imaging dc with insulin and levaquin impression, plan, and exam edited and reviewed in detail care discussed with aPulino Esteban MD Nov 02, 2020 16:54
[2020-11-03] MEDS ORDERED: Enoxaparin 40mg Inj SUBQ SCH (09:00)
--- NOTE | 2020-11-04 19:43 | Cardiology Report ---
APPROVED REPORT EKG Measurement Heart [id number] <Conclusion> Sinus rhythm with fusion complexes Rightward axis Borderline ECG
--- NOTE | 2020-11-05 14:27 | Discharge Summary ---
Discharge Summary Discharge Summary _ DATE OF ADMISSION: 10/29/2020 DATE OF DISCHARGE: 11/02/2020 DISCHARGED BY: Dr. Carlisle REASON FOR ADMISSION: 55 years old female with past medical history of diabetes mellitus , presented to with complaints of multiple episodes of nonbloody emesis for the last few days. Patient also reported shortness of breath. She also reported few bouts of nonbloody diarrhea. No chest pain. No headache or dizziness. Upon evaluation she was febrile 102.7, tachycardic, blood pressure was on the low side , and she was hypoxic. Rapid COVID-19 was positive Chest x-ray demonstrated no acute cardiopulmonary pathology. Laboratory work-up revealed leukocytosis WBC 15.2, stable hemoglobin and hematocrit. Sodium 127, chloride 92. BUN 22, creatinine 0.9. Glucose 440 , anion gap 7. Ferritin 380, CRP 28.8. D-dimer 0.76. Lactic acid 2.1. Urine toxicology screen was negative. Serum alcohol level was less than 3. Urinalysis revealed evidence of UTI.. In emergency department patient received 1 L of fluids , antiemetic, Pepcid, steroid, Tylenol, Lovenox and admitted for further management. CONSULTANTS: ID specialist Dr. Owen [facility] COURSE: Patient admitted to medical surgical floor isolation room. Supplemental oxygen provided and titrated to keep pulse oximetry above 92%. HFA provided. Patient received dexamethasone and remdesivir. DVT prophylaxis provided. Blood culture revealed E. coli, urine culture revealed. E. coli bacteremia was likely due to UTI Antibiotic provided as per ID recommendation. Leukocytosis resolved no fevers . ID specialist recommended continue antibiotics for additional 7 days upon discharge. Prescription provided. Renal parameters and electrolytes were closely monitored, electrolytes corrected as needed , and nephrotoxins were avoided BRIAN resolved ( BUN down tot normal) , and likely was due to dehydration, brought by emesis and diarrhea. Upon discharge sodium 132 chloride 97. Hemoglobin A1c 12.9. Blood sugar was managed with long-acting Levemir, premeal short-acting insulin and and sliding scale insulin as needed . Diabetic diet and diabetic teaching provided. Blood sugar improved. Patient clinically stabilized and was ready for discharge FINAL DIAGNOSES: Covid pneumonia E. coli sepsis , likely secondary to UTI E. coli UTI BRIAN due to dehydration -resolved Hypertension Diabetes mellitus DISCHARGE MEDICATIONS: See Medication Reconciliation list. DISCHARGE INSTRUCTIONS: Patient was discharged home. Continue self-isolation for total of 10 days from the date of initial diagnosis. I have been assigned to dictate discharge summary for this account. I was not involved in the patient's management. Karine Garduno NP Nov 05, 2020 14:27
== END 2020-11-02 17:20 | disposition home or self-care (01) | DRG 720 ==
LOC: EMR 16:20 → 4E 18:15 → EDBEDREQ 22:07
DX: A41.51 Sepsis due to Escherichia coli [E. coli] (principal); U07.1 COVID-19; J12.82 Pneumonia due to coronavirus disease 2019; N17.9 Acute kidney failure, unspecified; N39.0 Urinary tract infection, site not specified; E86.0 Dehydration; E11.65 Type 2 diabetes mellitus with hyperglycemia; B96.89 Other specified bacterial agents as the cause of diseases classified elsewhere; I10 Essential (primary) hypertension
CPT/HCPCS: 36415; 71045; 74018; 80053; 80307; 81003; 82248; 82728; 82962; 83036; 83605; 83690; 84484; 85007; 85025; 85379; 85651; 86140; 87040; 87086; 87181; 93005; 96361; 96365; 96367; 96372; 96375; 99285; G0480; J1815; J2405; J3490; J7030; J8499; S5561; U0002

== ENCOUNTER 2020-11-24 19:22 | Inpatient (IN) | payer OTHER, MEDICAID ==
[~2020-11-24] VITALS: Ht 154.9 cm; Wt 61.2 kg
[~2020-11-24 19:22] MED LIST changes: +JANUVIA100 MG ORAL; +LEVEMIR FL100 UNIT/2 SQ; +LEVOFLOXACIN500 MG ORAL
--- NOTE | 2020-11-24 19:45 | NUR ---
ED Nurse Note: Recieved pt walk in from home with c/o severe, abdominal pain with nausea and vomiting increasing for past 2 days, pt is actively vomiting bile lick contents, large amounts, pt denies any other complaints, rates pain at 9/10, pt immediately assisted to chris and pillo, IV line placed and labs drawn, pt also placed on cardiac monitoring, pt denies having chest pain, MD at bedside, will resume care as ordered and closely monitor.
[2020-11-24] MEDS ORDERED: Morphine Sulfate 4mg/ml Inj (IV USE ONLY) IVP ONE (20:00)
[2020-11-24] MEDS ORDERED: Omnipaque-300 100ml vial INJ PRN (20:00)
[2020-11-24 20:30] VITALS: BP 92/51
[2020-11-24 20:50] LABS: HEMATOCRIT 33.6 % (37.0-47.0); HEMOGLOBIN 10.8 G/DL (12.0-16.0); MEAN CORPUSCULAR VOLUME 82 FL (80-99); PLATELET COUNT 198 K/UL (150-450); RED BLOOD COUNT 4.09 M/UL (4.20-5.40); RED CELL DISTRIBUTION WIDTH 14.6 % (11.6-14.8); WHITE BLOOD COUNT 9.3 K/UL (4.8-10.8)
[2020-11-24 20:51] LABS: EOSINOPHILS % (AUTO) 0.1 % (0.0-3.0); LYMPHOCYTES % (AUTO) 3.2 % (20.0-45.0); MONOCYTES % (AUTO) 6.7 % (1.0-10.0); NEUTROPHILS % (AUTO) 88.5 % (45.0-75.0)
[2020-11-24 20:52] LABS: BASOPHILS % (AUTO) 1.5 % (0.0-2.0)
[2020-11-24] MEDS ORDERED: JANUVIA25 MG ORAL (21:02)
[2020-11-24 21:03] LABS: ALBUMIN 2.5 G/DL (3.4-5.0); ALBUMIN/GLOBULIN RATIO 0.5 (1.0-2.7); BILIRUBIN,TOTAL 0.8 MG/DL (0.2-1.0); CREATININE 1.6 MG/DL (0.55-1.30); POTASSIUM 3.9 MMOL/L (3.5-5.1)
[2020-11-24] MEDS ORDERED: Insulin Human Regular 100units/ml 3ml IV ONE (21:15)
--- NOTE | 2020-11-24 21:44 | Emergency Room Report ---
History of Present Illness General Chief Complaint: Abdominal Pain Source: Patient (Robert Mac MD) Present Illness HPI 55-year-old female presents to ED for evaluation. Complaining of abdominal pain with nausea and vomiting. States she feels weak and dizzy. Pain is dull, 10 out of 10, nonradiating. Denies chest pain or shortness of breath. States she has been recently tested for Covid and was negative. Denies cough. No other aggravating relieving factors. 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 COVID-19 Screening: Negative COVID-19 COVID-19 Testing Source: outside source (Robert Mac MD) Patient History Past Medical History: DM, HTN, GERD Pertinent Family History: none Social History: Denies: smoking, alcohol use, drug use Now: No Immunizations: UTD Reviewed Nursing Documentation: PMH: Agreed; PSxH: Agreed (Robert Mac MD) Nursing Documentation-PMH Hx Cardiac Problems: Yes - anemia Hx Hypertension: Yes Hx Asthma: Yes Hx Diabetes: Yes Hx Cancer: No Hx Gastrointestinal Problems: Yes - NAUSEA/VOMITING Hx Neurological Problems: No (Robert Mac MD) Review of Systems All Other Systems: negative except mentioned in HPI (Robert Mac MD) Physical Exam Vital Signs Date Time Temp Pulse Resp B/P (MAP) Pulse Ox O2 Delivery O2 Flow Rate FiO2 11/24/20 19:27 99.3 96 14 61/47 (52) 97 Room Air Sp02 EP Interpretation: reviewed, normal General Appearance: no apparent distress, alert, GCS 15, non-toxic Head: normocephalic, atraumatic Eyes: bilateral eye normal inspection, bilateral eye PERRL ENT: hearing grossly normal, normal pharynx, no angioedema, normal voice Neck: full range of motion, supple/symm/no masses Respiratory: chest non-tender, lungs clear, normal breath sounds, speaking full sentences Cardiovascular #1: regular rate, rhythm, no edema Cardiovascular #2: 2+ carotid (R), 2+ carotid (L), 2+ radial (R), 2+ radial (L), 2+ dorsalis pedis (R), 2+ dorsalis pedis (L) Gastrointestinal: normal bowel sounds, soft, non-distended, no guarding, no rebound, tenderness Rectal: deferred Genitourinary: normal inspection, no CVA tenderness Musculoskeletal: back normal, normal range of motion, gait/station normal, non- tender Neurologic: alert, motor strength/tone normal, oriented x3, sensory intact, responsive, speech normal Psychiatric: judgement/insight normal, memory normal, mood/affect normal, no suicidal/homicidal ideation Reflexes: 3+ bicep (R), 3+ bicep (L), 3+ tricep (R), 3+ tricep (L), 3+ knee (R), 3+ knee (L) Skin: no rash Lymphatic: no adenopathy (Robert Mac MD) Medical Decision Making Diagnostic Impression: Primary Impression: Hyponatremia Additional Impressions: Hyperglycemia due to type 2 diabetes mellitus Qualified Codes: E11.65 - Type 2 diabetes mellitus with hyperglycemia Pyelonephritis Sepsis Qualified Codes: A41.9 - Sepsis, unspecified organism BRIAN (acute kidney injury) ER Course Patient was signed out to me. She presents with chief complaint abdominal pain with nausea and vomiting. Her initial blood glucose was very elevated in the 500. Sodium was 123. Based on the elevated blood glucose, sodium is corrected to 130. She got fluids and insulin. Blood glucose came down to the 300. She does have positive urinalysis. She spiked a fever to 102 here and had shivering and rigors. She had E. coli bacteremia on the last admission. Antibiotics given. Patient will be admitted for IV antibiotics and pending blood culture. I contacted Dr. Carlisle for admission bc she was just admitted less than 30 days ago. (Srikanth Malhotra MD) CT/MRI/US Diagnostic Results CT/MRI/US Diagnostic Results : Imaging Test Ordered: CT abdomen pelvis Impression Read by radiologist. Normal appendix. Left renal enlargement, heterogeneous enhancement. (Srikanth Malhotra MD) Last Vital Signs Date Time Temp Pulse Resp B/P (MAP) Pulse Ox O2 Delivery O2 Flow Rate FiO2 11/24/20 19:27 99.3 96 14 61/47 (52) 97 Room Air (Robert Mac MD) Status: improved (Srikanth Malhotra MD) Disposition: ADMITTED INPATIENT Condition: Serious Referrals: [facility] (PCP) Robert Mac MD Nov 24, 2020 21:44 Srikanth Malhotra MD Nov 24, 2020 23:29
--- NOTE | 2020-11-24 21:54 | Diagnostic Imaging Report ---
EXAM: CT Abdomen and Pelvis With Intravenous Contrast CLINICAL HISTORY: ABD PAIN TECHNIQUE: Axial computed tomography images of the abdomen and pelvis with intravenous contrast. CTDI is 5.4 mGy and DLP is 286.7 mGy-cm. One or more of the following dose reduction techniques were used: automated exposure control, adjustment of the mA and/or kV according to patient size, use of iterative reconstruction technique. Coronal and sagittal reformatted images were created and reviewed. COMPARISON: 09/20/2020 FINDINGS: Lung bases: Unchanged small right apical renal cortical scarring from old ischemia or infection. ABDOMEN: Liver: Unremarkable. No mass. Gallbladder and bile ducts: Unremarkable. No calcified stones. No ductal dilation. Pancreas: Unremarkable. No mass. No ductal dilation. Spleen: Unremarkable. No splenomegaly. Adrenals: Unremarkable. No mass. Kidneys and ureters: Similar left renal enlargement, heterogeneous enhancement, and nondilated collecting system. No hydroureteronephrosis or urolithiasis. Stomach and bowel: Liquid small bowel contents could be incidental or could represent an infectious or inflammatory enteritis in the proper context. No obstruction. PELVIS: Appendix: No findings to suggest acute appendicitis. Bladder: Urinary bladder wall thickening. Reproductive: Recommend outpatient pelvic ultrasound further evaluate likely fibroid uterus with left subserosal 3.4cm probable fibroid not well evaluated on this study. ABDOMEN and PELVIS: Intraperitoneal space: Unremarkable. No free air. No significant fluid collection. Bones/joints: No acute fracture. No dislocation. Soft tissues: Recommend pelvic exam to further evaluate extensive perineal skin thickening and induration which is of uncertain significance, but which could represent neoplasm or cellulitis. Vasculature: Unremarkable. No abdominal aortic aneurysm. Lymph nodes: Unremarkable. No enlarged lymph nodes. IMPRESSION: 1. Similar left renal findings since prior, concerning for pyelonephritis or infiltrative process such as lymphoma. 2. No hydroureteronephrosis or urolithiasis. 3. Recommend pelvic exam to further evaluate extensive perineal skin thickening and induration which is of uncertain significance, but which could represent neoplasm or cellulitis. 4. Urinary bladder wall thickening could be incidental, due to high outlet pressures, or could represent cystitis. 5. Liquid small bowel contents could be incidental or could represent an infectious or inflammatory enteritis in the proper context. 6. Recommend outpatient pelvic ultrasound further evaluate likely fibroid uterus with left subserosal 3.4cm probable fibroid not well evaluated on this study.
[2020-11-24 22:00] VITALS: BP 116/58
--- NOTE | 2020-11-24 22:00 | NUR ---
ED Nurse Note: Pt remains awake and alert, continues to c/o having severe nausea, pain decreased slightly, pt is very thirsty and asking for water constantly, pt has elevated blood sugar level and also told she has hx of diabetes, MD aware and pt medicated for elevated sugar level, pt denies chest pain, no sob or labored breathing but constantly c/o abdominal pain, pt is dry heaving, urine sample collected and sent, pt ambulated to bathroom with assist, IV site patent, pt recieving fluids as ordered, will continue to closely monitor and resume care as ordered, pt is mostly mauritian speaking but can make needs known, Miguel staff in ED assist when needed with translation for pt.
[2020-11-24 22:52] LABS: APPEARANCE,URINE CLOUDY; BILIRUBIN, URINE NEGATIVE (NEGATIVE); COLOR,URINE PALE YELLOW; GLUCOSE, URINE (UA) 4+ (NEGATIVE); KETONES,URINE 1+ (NEGATIVE); LEUKOCYTE ESTERASE ,URINE 3+ (NEGATIVE); NITRITE,URINE NEGATIVE (NEGATIVE); PH,URINE 6.5 (4.5-8.0); PROTEIN,URINE 2+ (NEGATIVE); UROBILINOGEN,URINE NORMAL MG/DL (0.0-1.0)
[2020-11-24 23:00] VITALS: BP 118/54
[2020-11-24] MEDS ORDERED: cefTRIAXone 1 GM in NS 55 ML IVPB ONE (23:15)
[2020-11-24] MEDS ORDERED: Acetaminophen 500mg (ES) tab ORAL ONE (23:30)
[2020-11-24 23:45] VITALS: BP 119/56
--- NOTE | 2020-11-24 23:50 | NUR ---
ED Nurse Note: Pt suddennly called out very loudly for nurse, tp noted in bed shaking and stating she is very cold, pt remains on monitoring and heart rate also noted slightly increased, pt denies chest pain, no sob or labored breathing, pt temp was taken and found elevated, informed immediately, labs drawn and sent, pt medicated, also medicated for pain, nausea and IV antibiotic for UTI, pt heavy blankets removed, recieving fluids, will continue to monitor and prepare for admisison, all plan of care explained to pt in armenian. IV site patent.
[2020-11-24] MEDS ORDERED: Morphine Sulfate 4mg/ml Inj (IV USE ONLY) ONE (23:55)
[2020-11-25] MEDS ORDERED: Morphine Sulfate 4mg/ml Inj (IV USE ONLY) IVP ONE
--- NOTE | 2020-11-25 00:08 | Emergency Room Report ---
Sepsis Event Note Evaluation Current Stage of Sepsis: Sepsis Possible Source: Genitourinary Focused Exam Allergies: Coded Allergies: No Known Allergies (Unverified , 01/28/20) Date Exam Occurred: Nov 25, 2020 Time Exam Occurred: 00:08 Laboratory Studies Laboratory Tests Test 11/24/20 19:53 11/24/20 22:35 11/24/20 23:11 11/24/20 23:40 White Blood Count 9.3 K/UL (4.8-10.8) Red Blood Count 4.09 M/UL (4.20-5.40) L Hemoglobin 10.8 G/DL (12.0-16.0) L Hematocrit 33.6 % (37.0-47.0) L Mean Corpuscular Volume 82 FL (80-99) Mean Corpuscular Hemoglobin 26.3 PG (27.0-31.0) L Mean Corpuscular Hemoglobin Concent 32.1 G/DL (32.0-36.0) Red Cell Distribution Width 14.6 % (11.6-14.8) Platelet Count 198 K/UL (150-450) Mean Platelet Volume 7.3 FL (6.5-10.1) Neutrophils (%) (Auto) 88.5 % (45.0-75.0) H Lymphocytes (%) (Auto) 3.2 % (20.0-45.0) L Monocytes (%) (Auto) 6.7 % (1.0-10.0) Eosinophils (%) (Auto) 0.1 % (0.0-3.0) Basophils (%) (Auto) 1.5 % (0.0-2.0) Sodium Level 123 MMOL/L (136-145) L Potassium Level 3.9 MMOL/L (3.5-5.1) Chloride Level 87 MMOL/L (98-107) L Carbon Dioxide Level 26 MMOL/L (21-32) Anion Gap 10 mmol/L (5-15) Blood Urea Nitrogen 22 mg/dL (7-18) H Creatinine 1.6 MG/DL (0.55-1.30) H Estimat Glomerular Filtration Rate 33.7 mL/min (>60) Glucose Level 542 MG/DL (74-106) *H Calcium Level 9.0 MG/DL (8.5-10.1) Total Bilirubin 0.8 MG/DL (0.2-1.0) Aspartate Amino Transf (AST/SGOT) 20 U/L (15-37) Alanine Aminotransferase (ALT/SGPT) 27 U/L (12-78) Alkaline Phosphatase 94 U/L (46-116) Total Protein 7.4 G/DL (6.4-8.2) Albumin 2.5 G/DL (3.4-5.0) L Globulin 4.9 g/dL Albumin/Globulin Ratio 0.5 (1.0-2.7) L Lipase 249 U/L (73-393) Urine Color Pale yellow Urine Appearance Cloudy Urine pH 6.5 (4.5-8.0) Urine Specific [place] 1.005 (1.005-1.035) Urine Protein 2+ (NEGATIVE) H Urine Glucose (UA) 4+ (NEGATIVE) H Urine Ketones 1+ (NEGATIVE) H Urine Blood 3+ (NEGATIVE) H Urine Nitrite Negative (NEGATIVE) Urine Bilirubin Negative (NEGATIVE) Urine Urobilinogen Normal MG/DL (0.0-1.0) Urine Leukocyte Esterase 3+ (NEGATIVE) H Urine RBC 5-10 /HPF (0 - 2) H Urine WBC Tntc /HPF (0 - 2) H Urine Squamous Epithelial Cells Few /LPF (NONE/OCC) Urine Bacteria Moderate /HPF (NONE) H POC Whole Blood Glucose 338 MG/DL (74-106) H Lactic Acid Level Pending Vital Signs Last 24 Hour Vital Signs Date Time Temp Pulse Resp B/P (MAP) Pulse Ox O2 Delivery O2 Flow Rate FiO2 11/24/20 23:00 98.8 98 14 118/54 99 Room Air 11/24/20 20:34 99.3 11/24/20 19:45 96 14 Room Air 11/24/20 19:27 99.3 96 14 61/47 (52) 97 Room Air Respiratory Exam: Clear Cardiovascular Exam: RRR Capillary Refill: Less Than 2 Seconds Peripheral Pulse: Strong Skin Exam: Normal Turgor Srikanth Malhotra MD Nov 25, 2020 00:08
[2020-11-25] MEDS ORDERED: Morphine Sulfate 4mg/ml Inj (IV USE ONLY) IVP PRN (00:15)
[2020-11-25 01:00] VITALS: BP 125/56
--- NOTE | 2020-11-25 01:40 | NUR ---
ED Nurse Note: Pt had elevated lactic acid level, repeat drawn and sent to lab, states ok to sent to floor bed for admission before results, pt was given IV fluids and antibiotics with anti-emetics and tylenol per protocol.
--- NOTE | 2020-11-25 01:45 | NUR ---
ED Nurse Note: Pt remains in bed awake and alert, meds given effective, pain level decreased to 5/10 and temp is decreasing, heart rate wnl also, pt IV site patent, denies chest pain or nausea, pt belongings list completed and has all belongings with her, pt wants to keep meds stating they were lost before and she cant afford them, pt has no narcotics only glucose oral meds, pt informed in korean to take them, pt agrees, pt being taken to floor unit via gurney with [facility] during pt transport to floor bed for hospital admission.
[2020-11-25 01:58] VITALS: BP 94/54
--- NOTE | 2020-11-25 02:01 | NUR ---
NURSE NOTES: Received patient from ED via gurney. Patient able to ambulate to restroom without assist, witnessed to have steady gait. IV access patent, running IVF from ED, patient tolerating well. Belongings checked, list signed. Patient has cellphone with structural steel engineer at bedside. Patient c/o 03/[address] Carlisle paged for admission orders.
[2020-11-25] MEDS ORDERED: HYDROcodone/Acetamin 5/325 tab ORAL PRN (05:30)
[2020-11-25] MEDS: NovoLOG Insulin Flexpen SUBQ SCH ×4 (06:14→20:40)
--- NOTE | 2020-11-25 07:21 | NUR ---
Report given to JUDY Burgos
--- NOTE | 2020-11-25 07:22 | NUR ---
NURSE NOTES: Received report from Radha KIM. Patient is awake in bed A&O x4, appears fatigued. On room air, no sob, no acute distress. IVF running per order. Patient updated on care plan. Call light in reach, bed in lowest position, bed alarm on, side rails up.
[2020-11-25 07:55] VITALS: BP 106/62
[2020-11-25] MEDS: Cefepime HCl 1 GM in D5W 55 ML IVPB SCH ×2 (08:20→20:32)
[2020-11-25] MEDS: Heparin 5000 units/ml inj SUBQ SCH ×2 (08:21→20:33)
--- NOTE | 2020-11-25 11:32 | NUR ---
CASE MANAGEMENT:REVIEW 55 YR OLD FEMALE PRESENTED TO ER CC: WEAK,NAUSEA AND ABDOMINAL PAIN SI: PYELONEPHRITIS. HYPERGLYCEMIA. SEPSIS 99.6 96 14 61/47 97% ON RA NA-123 BUN+22 CR+1.6 GLUCOSE+542 IS: IV INSULIN 1L NS BOLUS X3 IV MORPHINE IV PEPCID IV ZOFRAN IV ROCEPHIN CT ABD/PELVIS CXR URINE CX : TO MED/SURG 4 EAST DCP: FROM HOME
[2020-11-25 11:50] VITALS: BP 110/62
[2020-11-25] MEDS: HYDROcodone/Acetamin 5/325 tab ORAL PRN (12:00)
[2020-11-25] MEDS ORDERED: METFORMIN HCL850 M1 ORAL (12:07)
[2020-11-25] MEDS ORDERED: ACYCLOVIR400 MG ORAL (12:07)
[2020-11-25] MEDS ORDERED: PROMETHAZINE-D118 ML ORAL (12:07)
[2020-11-25] MEDS ORDERED: ALBUTEROL SULF8.5 G1 INH (12:07)
[2020-11-25] MEDS ORDERED: DEXAMETHASONE6 MG PO (12:07)
[2020-11-25] MEDS ORDERED: IBUPROFEN600 M1 ORAL (12:07)
--- NOTE | 2020-11-25 14:16 | Diagnostic Imaging Report ---
Indication: Chest pain Technique: One view of the chest Comparison: 10/31/2020 Findings: The heart is enlarged. The lungs and pleural spaces are clear. No significant interim change Impression: No acute process
[2020-11-25 16:00] VITALS: BP 121/64
--- NOTE | 2020-11-25 18:06 | History & Physical ---
History and Physical History & Physicial 55 year olf female with recent admission for COVID now readmitted with pain chills and possible pyelonephritis started on antibiotics CT abdomen noted PMH Covid pneumonia E. coli sepsis , likely secondary to UTI E. coli UTI BRIAN due to dehydration -resolved Hypertension Diabetes mellitus MEDS/ALLERGIES: reviewed and reconciled SOCIAL HISTORY: nonsmoker nondrinker PHYSICAL WDWN toxic appearing clear breath sounds bilaterally without rhonchi or wheeze [id number] without MRG NABS nontender no HSM no CCE nonfocal Laboratory Tests 11/24/20 19:53: White Blood Count 9.3, Red Blood Count 4.09L, Hemoglobin 10.8L, Hematocrit 33.6L , Mean Corpuscular Volume 82, Mean Corpuscular Hemoglobin 26.3L, Mean Corpuscular Hemoglobin Concent 32.1, Red Cell Distribution Width 14.6, Platelet Count 198, Mean Platelet Volume 7.3, Neutrophils (%) (Auto) 88.5H, Lymphocytes (%) (Auto) 3.2L, Monocytes (%) (Auto) 6.7, Eosinophils (%) (Auto) 0.1, Basophils (%) (Auto) 1.5, Sodium Level 123L, Potassium Level 3.9, Chloride Level 87L, Carbon Dioxide Level 26, Anion Gap 10, Blood Urea Nitrogen 22H, Creatinine 1.6H, Estimat Glomerular Filtration Rate 33.7, Glucose Level 542*H, Calcium Level 9.0, Total Bilirubin 0.8, Aspartate Amino Transf (AST/SGOT) 20, Alanine Aminotransferase (ALT/SGPT) 27, Alkaline Phosphatase 94, Total Protein 7.4, Albumin 2.5L, Globulin 4.9, Albumin/Globulin Ratio 0.5L, Lipase 249 11/24/20 22:35: Urine Color Pale yellow, Urine Appearance Cloudy, Urine pH 6.5, Urine Specific [place] 1.005, Urine Protein 2+H, Urine Glucose (UA) 4+H, Urine Ketones 1+H, U rine Blood 3+H, Urine Nitrite Negative, Urine Bilirubin Negative, Urine Urobilinogen Normal, Urine Leukocyte Esterase 3+H, Urine RBC 5-10H, Urine WBC TntcH, Urine Squamous Epithelial Cells Few, Urine Bacteria ModerateH 11/24/20 23:11: POC Whole Blood Glucose 338H 11/24/20 23:40: Lactic Acid Level 3.30H 11/25/20 01:40: Lactic Acid Level 1.00 11/25/20 05:43: POC Whole Blood Glucose 307H 11/25/20 11:17: POC Whole Blood Glucose 277H 11/25/20 17:00: POC Whole Blood Glucose 211H IMPRESSION possible sepsis pyelonephritis hyponatremia PCM BRIAN anemia PLAN IV hydration tylenol IVantibiotics recheck labs and cultures ID to see impression, plan, and exam edited and reviewed in detail care discussed with Paulino Esteban MD Nov 25, 2020 18:06
--- NOTE | 2020-11-25 19:34 | NUR ---
NURSE HAND-OFF: Important Events on Shift:[Low grade fever, dizzy, pain management] Patient Status: [stable] Diet: [CCHO, Low Na] Pending Orders: [] Pending Results/Labs:[] Pending MD notification:[] Latest Vital Signs: Temperature 100.0 , Pulse 85 , B/P 121 /64 , Respiratory Rate 20 , O2 SAT 98 , Room Air, O2 Flow Rate . Vital Sign Comment: [] Latest Kam Fall Score: 45 Fall Risk: High Risk Safety Measures: Call light Within Reach, Bed Alarm Zone 2, Side Rails Side Rails x2, Bed position Low and Locked. Fall Precautions: Yellow Socks Patient Fall Education Report given to [Gretel KIM].
[2020-11-25 20:00] VITALS: BP 112/64
--- NOTE | 2020-11-25 20:00 | NUR ---
NURSES NOTE: Pt in bed, A/OX4, denies pain currently. No outward s/s of distress noted. Breathing pattern is even and unlabored on RA. Pt states she is dizzy, call light emphasized to use for help. IV R AC in place, infusing IVF without incident. All due medications will be administered. Bed at lowest level, call light within reach. Pt will continue to be monitored.
[2020-11-26 04:00] VITALS: BP 114/60
[2020-11-26] MEDS: NovoLOG Insulin Flexpen SUBQ SCH ×4 (06:36→20:20)
--- NOTE | 2020-11-26 06:41 | NUR ---
NURSE HAND-OFF: Important Events on Shift:[N/A] Patient Status: [STABLE] Diet: [CCHO] Pending Orders: [N/A] Pending Results/Labs:[N/A] Pending MD notification:[N/A] Latest Vital Signs: Temperature 98.2 , Pulse 74 , B/P 114 /60 , Respiratory Rate 17 , O2 SAT 96 , Room Air, O2 Flow Rate . Vital Sign Comment: [WNL] Latest Kam Fall Score: 45 Fall Risk: High Risk Safety Measures: Call light Within Reach, Bed Alarm Zone 2, Side Rails Side Rails x2, Bed position Low and Locked. Fall Precautions: Yellow Socks Patient Fall Education Report given to [].
--- NOTE | 2020-11-26 07:24 | NUR ---
HAND OFF: Report given to JUDY Flowers.
--- NOTE | 2020-11-26 07:30 | NUR ---
NURSE NOTES: Patient lying in bed awake. Complain of pain 5/10 and nausea. Per patient: doesn't need pain medication but wants nausea medication. Will administer as ordered. IV dressing intact and dry. Instructed to use call light for help and verbalized understanding. Bed lowest position and side rails up. Call light within reach. Will continue to monitor.
[2020-11-26 08:00] VITALS: BP 116/70
[2020-11-26] MEDS: Cefepime HCl 1 GM in D5W 55 ML IVPB SCH ×2 (08:25→22:00)
[2020-11-26] MEDS: Heparin 5000 units/ml inj SUBQ SCH ×2 (08:35→20:09)
--- NOTE | 2020-11-26 08:49 | General Progress Note ---
Subjective Allergies: Coded Allergies: No Known Allergies (Unverified , 01/28/20) Subjective no appetite thirsty Objective Last 24 Hour Vital Signs Date Time Temp Pulse Resp B/P (MAP) Pulse Ox O2 Delivery O2 Flow Rate FiO2 11/26/20 04:00 98.2 74 17 114/60 (78) 96 11/25/20 21:00 Room Air 11/25/20 20:00 99.2 84 18 112/64 (80) 92 11/25/20 16:00 100.0 85 20 121/64 (83) 98 11/25/20 11:50 99.3 95 20 110/62 (78) 96 11/25/20 09:00 Room Air Intake and Output 11/25/20 11/26/20 19:00 07:00 Intake Total 1955 ml 700 ml Balance 1955 ml 700 ml Intake Oral 900 ml 700 ml IV Total 1055 ml # Voids 2 3 Laboratory Tests 11/25/20 11:17: POC Whole Blood Glucose 277H 11/25/20 17:00: POC Whole Blood Glucose 211H 11/25/20 20:39: POC Whole Blood Glucose 199H Height (Feet): 5 Height (Inches): 1.00 Weight (Pounds): 135 Objective WDWN NAD clear breath sounds bilaterally without rhonchi or wheeze [id number] without MRG NABS nontender no HSM no CCE nonfocal Assessment/Plan Assessment/Plan: IMPRESSION possible sepsis pyelonephritis hyponatremia PCM BRIAN anemia PLAN IV hydration tylenol IVantibiotics recheck labs and cultures ID eval impression, plan, and exam edited and reviewed in detail care discussed with Paulino Esteban MD Nov 26, 2020 08:49
[2020-11-26 09:17] LABS: BASOPHILS % (AUTO) 1.1 % (0.0-2.0); EOSINOPHILS % (AUTO) 0.7 % (0.0-3.0); HEMATOCRIT 28.9 % (37.0-47.0); HEMOGLOBIN 9.3 G/DL (12.0-16.0); LYMPHOCYTES % (AUTO) 4.7 % (20.0-45.0); MEAN CORPUSCULAR VOLUME 81 FL (80-99); MONOCYTES % (AUTO) 9.5 % (1.0-10.0); PLATELET COUNT 169 K/UL (150-450); RED BLOOD COUNT 3.55 M/UL (4.20-5.40); RED CELL DISTRIBUTION WIDTH 14.6 % (11.6-14.8); WHITE BLOOD COUNT 7.4 K/UL (4.8-10.8)
--- NOTE | 2020-11-26 09:18 | NUR ---
NURSE NOTES: Spoke to regarding constipation and new order received. Order read back and carried out.
[2020-11-26 09:55] LABS: ANION GAP 7 mmol/L (5-15); BLOOD UREA NITROGEN 11 mg/dL (7-18); CALCIUM 8.7 MG/DL (8.5-10.1); CARBON DIOXIDE 27 MMOL/L (21-32); CHLORIDE 96 MMOL/L (98-107); CREATININE 0.8 MG/DL (0.55-1.30); SODIUM 130 MMOL/L (136-145)
[2020-11-26 12:00] VITALS: BP 126/58
[2020-11-26] MEDS: HYDROcodone/Acetamin 5/325 tab ORAL PRN (12:00)
--- NOTE | 2020-11-26 12:24 | NUR ---
CASE MANAGEMENT:REVIEW 11/26/20 SI: PYELONEPHRITIS. SEPSIS 98.2 84 18 116/70 99% ON RA H/H-9.3/28.9 NA-130 K-3.0 GLUCOSE+300 IS: IV CEFEPIME Q12 IVF@100/HR HEPARIN SQ Q12 : MED/SURG STATUS 4 EAST PLAN: URINE AND BLOOD CX PENDING
--- NOTE | 2020-11-26 15:13 | NUR ---
INSURANCE CLINICALS/REVIEW FAXED TO [facility] [phone]
[2020-11-26 16:00] VITALS: BP 135/68
[2020-11-26] MEDS: Docusate 100mg cap ORAL SCH (17:31)
--- NOTE | 2020-11-26 17:55 | NUR ---
NURSE NOTES: Patient having fever 100.3. Spoke to regarding fever and Urine culture result and new order received. Order read back carried out.
[2020-11-26] MEDS ORDERED: Gentamicin Rx monitoring MISC PRN (18:00)
--- NOTE | 2020-11-26 19:16 | NUR ---
NURSE NOTES: Spoke to regarding potassium level and new order received. Order read back and carried out.
--- NOTE | 2020-11-26 19:19 | NUR ---
NURSE HAND-OFF: Important Events on Shift: New Antibiotic Patient Status: Stable Diet: CCHO(M) Pending Orders: N/A Pending Results/Labs:CBC, BMP on 11/27 Pending MD notification:N/A Latest Vital Signs: Temperature 100.3 , Pulse 80 , B/P 135 /68 , Respiratory Rate 17 , O2 SAT 95 , Room Air, O2 Flow Rate . Vital Sign Comment: Stable Latest Kam Fall Score: 45 Fall Risk: High Risk Safety Measures: Call light Within Reach, Bed Alarm Zone 1, Side Rails Side Rails x2, Bed position Low and Locked. Fall Precautions: Yellow Socks Door Sign Patient Fall Education Report given to Elenita TIJERINA. Patient in stable condition.
[2020-11-26 20:00] VITALS: BP 129/61
--- NOTE | 2020-11-26 20:00 | NUR ---
NURSE NOTES: RECEIVED PATIENT LYING IN BED,AWAKE, ALERT/ORIENTED X4, ABLE TO VERBALIZE SIMPLE NEEDS IN CHINESE, DENIES PAIN. NO SIGNS AND SYMPTOMS OF ACUTE CARDIO RESPIRATORY DISTRESS/SHORTNESS OF BREATH, DENIES CHEST PAIN. ABDOMEN SOFT/NON DISTENDED/NON TENDER/AUDIBLE BOWEL SOUNDS, DENIES N/V/D. IV INTACT TO RIGHT AC/GAUGE 20, TOLERATING IV FLUIDS, NO N/V/D. SIDE RAILS UP X2 FOR MOBILITY, BED IN LOWEST POSITION FOR SAFETY, ENCOURAGED PATIENT TO UTILIZE CALL LIGHT FOR ASSISTANCE, VERBALIZED UNDERSTANDING, CONTINUE WITH CURRENT PLAN OF CARE. NAD. STANDARD ISOLATION ONGOING.
[2020-11-26] MEDS: Milk of Magnesia 30ml Ud ORAL PRN (20:31)
[2020-11-26] MEDS: GENTAMICIN IVPB SCH (21:00)
[2020-11-26] MEDS: NS IVPB SCH (21:00)
[2020-11-27] VITALS (7 sets, daily range): BP systolic 112–160; BP diastolic 56–83
[2020-11-27] MEDS: NovoLOG Insulin Flexpen SUBQ SCH ×4 (06:20→21:07)
--- NOTE | 2020-11-27 07:18 | NUR ---
NURSE HAND-OFF: Important Events on Shift:[T MAX 100.5, MEDICATED WITH TYLENOL 650MG PO, TOLERATED WELL, TEMP 99.7] Patient Status: [STABLE, AFEBRILE] Diet: [REGULAR, MECHANICAL SOFT CHOPPED] Pending Orders: [AM LABS] Pending Results/Labs:[] Pending MD notification:[] Latest Vital Signs: Temperature 99.7 , Pulse 99 , B/P 155 /80 , Respiratory Rate 20 , O2 SAT 97 , Room Air, O2 Flow Rate . Vital Sign Comment: [STABLE, AFEBRILE] Latest Kam Fall Score: 45 Fall Risk: High Risk Safety Measures: Call light Within Reach, Bed Alarm Zone 1, Side Rails Side Rails x2, Bed position Low and Locked. Fall Precautions: Yellow Socks Door Sign Patient Fall Education Report given to [JUDY GARIBAY]. Addendum: 11/27/20 at 0725 by JANINA BURNS LVN PATIENT ON [facility] M, REGULAR MS CHOPPED CHARTED IN ERROR
--- NOTE | 2020-11-27 07:57 | NUR ---
NURSE NOTES: received report from JUDY Levin. patient in bed. A&Ox4, verbally responsive. no respiratory distress on room air. no pain at this time. Patient said feeling better than yesterday. IV on RAC 20g running NS@100/hr. bed side commode. Patient is ambulate with assist and supervision. bed in the lowest position and locked. call light within reach. will continue to provide plan of care.
[2020-11-27] MEDS: Heparin 5000 units/ml inj SUBQ SCH ×2 (09:07→21:08)
[2020-11-27] MEDS: Docusate 100mg cap ORAL SCH ×2 (09:07→18:04)
[2020-11-27] MEDS: Cefepime HCl 1 GM in D5W 55 ML IVPB SCH ×2 (09:07→21:05)
--- NOTE | 2020-11-27 09:14 | General Progress Note ---
Subjective Allergies: Coded Allergies: No Known Allergies (Unverified , 01/28/20) Subjective improved appetite low grade fevers Objective Last 24 Hour Vital Signs Date Time Temp Pulse Resp B/P (MAP) Pulse Ox O2 Delivery O2 Flow Rate FiO2 11/27/20 08:00 98.6 85 20 135/75 (95) 97 11/27/20 04:10 99.7 11/27/20 04:00 100.5 99 20 155/80 (105) 97 11/27/20 00:00 98.8 89 20 151/82 (105) 98 11/26/20 21:02 Room Air 11/26/20 21:00 Room Air 11/26/20 20:00 98.1 81 20 129/61 (83) 95 11/26/20 18:33 100.3 11/26/20 16:00 98.4 80 17 135/68 (90) 95 11/26/20 12:00 98.2 84 18 126/58 (80) 98 Intake and Output 11/26/20 11/27/20 19:00 07:00 Intake Total 100 ml 1431.5 ml Balance 100 ml 1431.5 ml Intake Oral 360 ml IV Total 100 ml 1071.5 ml # Voids 3 Laboratory Tests 11/26/20 11:54: POC Whole Blood Glucose 239H 11/26/20 20:13: POC Whole Blood Glucose 234H Height (Feet): 5 Height (Inches): 1.00 Weight (Pounds): 135 Objective WDWN NAD clear breath sounds bilaterally without rhonchi or wheeze [id number] without MRG NABS nontender no HSM no CCE nonfocal Assessment/Plan Assessment/Plan: IMPRESSION urosepsis pyelonephritis hyponatremia PCM BRIAN anemia PLAN IV hydration tylenol IVantibiotics gent added recheck labs and cultures ID eval impression, plan, and exam edited and reviewed in detail care discussed with Paulino Esteban MD Nov 27, 2020 09:14
[2020-11-27 09:50] LABS: BASOPHILS % (AUTO) 0.9 % (0.0-2.0); HEMATOCRIT 29.2 % (37.0-47.0); HEMOGLOBIN 9.5 G/DL (12.0-16.0); LYMPHOCYTES % (AUTO) 7.6 % (20.0-45.0); MEAN CORPUSCULAR VOLUME 81 FL (80-99); MONOCYTES % (AUTO) 14.4 % (1.0-10.0); PLATELET COUNT 178 K/UL (150-450); RED BLOOD COUNT 3.62 M/UL (4.20-5.40); RED CELL DISTRIBUTION WIDTH 14.5 % (11.6-14.8); WHITE BLOOD COUNT 6.4 K/UL (4.8-10.8)
[2020-11-27 10:10] LABS: ANION GAP 6 mmol/L (5-15); BLOOD UREA NITROGEN 8 mg/dL (7-18); CALCIUM 8.7 MG/DL (8.5-10.1); CARBON DIOXIDE 29 MMOL/L (21-32); CHLORIDE 98 MMOL/L (98-107); CREATININE 0.6 MG/DL (0.55-1.30); POTASSIUM 2.8 MMOL/L (3.5-5.1); SODIUM 133 MMOL/L (136-145)
--- NOTE | 2020-11-27 13:41 | NUR ---
CASE MANAGEMENT:REVIEW 11/27/20 SI: PYELONEPHRITIS. SEPSIS 100.5 83 20 160/83 98% ON RA H/H-9.5/29.2 NA-133 K-2.8 IS: IV GENTAMICIN Q24 IV CEFEPIME Q12 IVF@100/HR HEPARIN SQ Q12 : MED/SURG STATUS 4 EAST PLAN: URINE(+) E COLI BLOOD (+) GRAM NEGATIVE RODS CONTINUE ANTIBIOTICS
--- NOTE | 2020-11-27 16:09 | NUR ---
INSURANCE CLINICALS/REVIEW FAXED TO [facility] [phone]
[2020-11-27] MEDS: Milk of Magnesia 30ml Ud ORAL PRN (18:05)
--- NOTE | 2020-11-27 18:30 | NUR ---
NURSE NOTES: patient had an episode of high fever 101.2@1600. went down 98.2 after Tylenol PRN. notified Dr. Carlisle.
--- NOTE | 2020-11-27 19:09 | NUR ---
NURSE HAND-OFF: Important Events on Shift:Episode of high fever. IV hydration. IV ATB Patient Status: stable. fever at times. Diet: CCHO m Pending Orders: n/a Pending Results/Labs:n/a Pending MD notification:n/a Latest Vital Signs: Temperature 98.2 , Pulse 88 , B/P 142 /67 , Respiratory Rate 20 , O2 SAT 98 , Room Air, O2 Flow Rate . Vital Sign Comment: stable. fever at times. Latest Kam Fall Score: 45 Fall Risk: High Risk Safety Measures: Call light Within Reach, Bed Alarm Zone 1, Side Rails Side Rails x2, Bed position Low and Locked. Fall Precautions: Yellow Socks Door Sign Patient Fall Education Report given to JUDY Madrid.
--- NOTE | 2020-11-27 19:23 | NUR ---
NURSE NOTES: received pt and report from JUDY Garcia.pt alert and oriented x 4 with no acute distress at the moment and no co pain. IV sites clean dry and intact. L FA running fluids as ordered. Plan of care discussed.
[2020-11-27] MEDS: NS IVPB SCH (19:54)
[2020-11-27] MEDS: GENTAMICIN IVPB SCH (19:54)
--- NOTE | 2020-11-27 21:00 | NUR ---
NURSE NOTES: Dr. Carlisle notified about pt potassium level of 2.8. K-Dur ordered. will carry out order.
[2020-11-28] VITALS (8 sets, daily range): BP systolic 114–169; BP diastolic 61–86
--- NOTE | 2020-11-28 00:12 | NUR ---
NURSE NOTES: pt vital signs stable at this time. no co pain currently, no acute s/s of distress. pt currently asleep.
--- NOTE | 2020-11-28 04:27 | NUR ---
NURSE NOTES: vitals are stable. no acute distress noted. no co pain. pt currently asleep.
[2020-11-28] MEDS: NovoLOG Insulin Flexpen SUBQ SCH ×4 (05:50→21:18)
[2020-11-28 06:52] LABS: ANION GAP 8 mmol/L (5-15); BLOOD UREA NITROGEN 6 mg/dL (7-18); CALCIUM 8.8 MG/DL (8.5-10.1); CARBON DIOXIDE 28 MMOL/L (21-32); CHLORIDE 101 MMOL/L (98-107); CREATININE 0.6 MG/DL (0.55-1.30); POTASSIUM 3.5 MMOL/L (3.5-5.1); SODIUM 137 MMOL/L (136-145)
--- NOTE | 2020-11-28 07:11 | NUR ---
NURSE HAND-OFF: Important Events on Shift:NA Patient Status: stable Diet: consistent carb Pending Orders: NA Pending Results/Labs: potassium level Pending MD notification: NA Latest Vital Signs: Temperature 98.6 , Pulse 90 , B/P 154 /72 , Respiratory Rate 16 , O2 SAT 95 , Room Air, O2 Flow Rate . Vital Sign Comment: stable through the shift Latest Kam Fall Score: 45 Fall Risk: High Risk Safety Measures: Call light Within Reach, Bed Alarm Zone 1, Side Rails Side Rails x2, Bed position Low and Locked. Fall Precautions: Yellow Socks Door Sign Patient Fall Education Report given to JUDY Álvarez.
--- NOTE | 2020-11-28 07:16 | NUR ---
NURSE NOTES: Report received from Nahun RN,rounds made. Patient AOx4, calm, Maori speaking. Respirations even/unlabored on RA. Appetite good on CCHO med. No BM yet. RAC saline lock, intact, asymptomatic. IV NS at 100ml/hr to LFA, asymptomatic. Call light in reach, bed in lowest position,will continue to monitor.
--- NOTE | 2020-11-28 09:27 | General Progress Note ---
Subjective Allergies: Coded Allergies: No Known Allergies (Unverified , 01/28/20) Subjective improved appetite low grade fevers Objective Last 24 Hour Vital Signs Date Time Temp Pulse Resp B/P (MAP) Pulse Ox O2 Delivery O2 Flow Rate FiO2 11/28/20 04:00 98.6 90 16 154/72 (99) 95 11/28/20 00:00 98.2 73 15 116/62 (80) 98 11/27/20 20:00 98.1 77 17 112/66 (81) 98 11/27/20 19:43 Room Air 11/27/20 17:05 98.2 11/27/20 17:00 98.2 11/27/20 16:00 100.3 88 20 142/67 (92) 98 11/27/20 13:00 131/56 (81) 11/27/20 12:00 99.3 83 20 160/83 (108) 98 Intake and Output 11/27/20 11/28/20 19:00 07:00 Intake Total 2130 ml 1280 ml Balance 2130 ml 1280 ml Intake Oral 720 ml 480 ml IV Total 1410 ml 800 ml # Voids 3 3 Laboratory Tests 11/27/20 16:27: POC Whole Blood Glucose 308H 11/28/20 05:10: Sodium Level 137, Potassium Level 3.5, Chloride Level 101, Carbon Dioxide Level 28, Anion Gap 8, Blood Urea Nitrogen 6L, Creatinine 0.6, Estimat Glomerular Filtration Rate > 60, Glucose Level 252H, Calcium Level 8.8 11/28/20 05:18: POC Whole Blood Glucose 250H Height (Feet): 5 Height (Inches): 1.00 Weight (Pounds): 135 Objective WDWN NAD clear breath sounds bilaterally without rhonchi or wheeze [id number] without MRG NABS nontender no HSM no CCE nonfocal Assessment/Plan Assessment/Plan: IMPRESSION urosepsis pyelonephritis hyponatremia PCM BRIAN anemia PLAN IV hydration tylenol IVantibiotics adjusted PO levaquin on dc recheck labs and cultures ID eval for clearance hope to dc in am impression, plan, and exam edited and reviewed in detail care discussed with Paulino Esteban MD Nov 28, 2020 09:27
[2020-11-28] MEDS: Heparin 5000 units/ml inj SUBQ SCH ×2 (09:50→21:17)
[2020-11-28] MEDS: Docusate 100mg cap ORAL SCH ×2 (09:50→17:45)
[2020-11-28] MEDS ORDERED: cefTRIAXone 1 GM in D5W 55 ML IVPB SCH (11:00)
--- NOTE | 2020-11-28 12:41 | NUR ---
NURSE NOTES: notified of no BM since 11/23, had MOM yesterday, orders for Dulcolax 10 mg PO daily/prn and Fleets if needed. Home medications reconciled with Dr. Carlisle, orders to continue upon discharge.
[2020-11-28] MEDS ORDERED: Bisacodyl EC 5mg tab ORAL PRN (12:45)
--- NOTE | 2020-11-28 13:49 | NUR ---
INSURANCE CLINICALS FAXED TO [facility] [phone]
--- NOTE | 2020-11-28 16:09 | NUR ---
NURSE NOTES: BP 169/86 HR 87 at 1500, asymptomatic, no c/o pain, left message for Dr. Carlisle, no call back yet, rechecked at 1600, BP 147/77 HR 82, updated message left for Dr. Carlisle, awaiting call back if needed.
--- NOTE | 2020-11-28 17:05 | NUR ---
NURSE NOTES: Received order from Dr. Carlisle for Clonidine 0.1 mg PO every 4 hours PRN for SBP >150, will follow as ordered.
[2020-11-28] MEDS ORDERED: Fleet's Enema 133ml RECTAL SCH (18:00)
--- NOTE | 2020-11-28 19:37 | NUR ---
NURSE HAND-OFF: Important Events on Shift:Needs Fleets, Dulcolax 10 mg PO x1 given, Plan for discharge 11/29 AM (RX in green folder), new Clonidine PRN order, afebrile Patient Status: stable Diet: CCHO med Pending Orders: Discharge 11/29 AM Pending Results/Labs:none Pending MD notification:none Latest Vital Signs: Temperature 98.0 , Pulse 82 , B/P 147 /77 , Respiratory Rate 18 , O2 SAT 97 , Room Air, O2 Flow Rate . Vital Sign Comment: monitor BP, temp Latest Kam Fall Score: 45 Fall Risk: High Risk Safety Measures: Call light Within Reach, Bed Alarm Zone 1, Side Rails Side Rails x2, Bed position Low and Locked. Fall Precautions: Yellow Socks Door Sign Patient Fall Education Report given to Parish KIM.
--- NOTE | 2020-11-28 20:00 | NUR ---
NURSE NOTES: Patient in bed, awake, alert, romansh speaking. Able to make needs known. Respiration is even and unlabored. Kept clean and comfortable. No complaint of pain or discomfort noted. Abdomen is soft and non distended. Skin is warm and dry to touch. Iv site noted, iv fluid is infusing as ordered. Call light is at bedside. Will continue plan of care.
[2020-11-29 04:00] VITALS: BP 132/70
[2020-11-29] MEDS: NovoLOG Insulin Flexpen SUBQ SCH (05:38)
--- NOTE | 2020-11-29 07:10 | NUR ---
NURSE NOTES received patient resting comfortably in bed,patient AOx4, calm, German speaking. Respirations even/unlabored on RA. denies pain or discomfort,on fall and aspiration precaution. Call light in reach, bed in lowest position,patient made aware regarding plan of care,kept clean dry and comfortable in bed, needs met and anticipated jackie marie
--- NOTE | 2020-11-29 07:13 | NUR ---
NURSE HAND-OFF: Important Events on Shift:WNL, BM yesterday Patient Status: WNL Diet: CCHO MED Pending Orders: Pending Results/Labs: Pending MD notification: Latest Vital Signs: Temperature 98.9 , Pulse 82 , B/P 132 /70 , Respiratory Rate 16 , O2 SAT 97 , Room Air, O2 Flow Rate . Vital Sign Comment: WNL Latest Kam Fall Score: 45 Fall Risk: High Risk Safety Measures: Call light Within Reach, Bed Alarm Zone 1, Side Rails Side Rails x2, Bed position Low and Locked. Fall Precautions: Yellow Socks Door Sign Patient Fall Education Report given to Vishnu Person.
[2020-11-29 08:00] VITALS: BP 118/62
[2020-11-29] MEDS: Docusate 100mg cap ORAL SCH (08:37)
[2020-11-29] MEDS: Heparin 5000 units/ml inj SUBQ SCH (08:40)
--- NOTE | 2020-11-29 08:57 | General Progress Note ---
Subjective Allergies: Coded Allergies: No Known Allergies (Unverified , 01/28/20) Subjective improved appetite afebrile Objective Last 24 Hour Vital Signs Date Time Temp Pulse Resp B/P (MAP) Pulse Ox O2 Delivery O2 Flow Rate FiO2 11/29/20 08:00 Room Air 11/29/20 08:00 98.6 92 20 118/62 (80) 94 11/29/20 04:00 98.9 82 16 132/70 (90) 97 11/28/20 23:27 98.7 86 16 129/64 (85) 100 11/28/20 20:20 Room Air 11/28/20 20:00 98.9 87 18 143/76 (98) 96 11/28/20 16:00 98.0 82 18 147/77 (100) 97 11/28/20 15:00 87 169/86 (113) 11/28/20 11:45 97.8 87 18 141/72 (95) 97 11/28/20 09:00 Room Air Intake and Output 11/28/20 11/29/20 19:00 07:00 Intake Total 4060 ml 1180 ml Balance 4060 ml 1180 ml Intake Oral 2960 ml 480 ml IV Total 1100 ml 700 ml # Voids 4 2 Laboratory Tests 11/28/20 16:22: POC Whole Blood Glucose 315H 11/28/20 22:00: POC Whole Blood Glucose 375H Height (Feet): 5 Height (Inches): 1.00 Weight (Pounds): 135 Objective WDWN NAD clear breath sounds bilaterally without rhonchi or wheeze [id number] without MRG NABS nontender no HSM no CCE nonfocal Assessment/Plan Assessment/Plan: IMPRESSION urosepsis pyelonephritis hyponatremia PCM BRIAN anemia diabetes PLAN IV hydration- dc tylenol resume diabetic meds PO levaquin on dc stable for dc impression, plan, and exam edited and reviewed in detail care discussed with Paulino Esteban MD Nov 29, 2020 08:57
--- NOTE | 2020-11-29 09:40 | NUR ---
NURSE NOTES Discharge to home obtained, patient agreed with the plan of care, discharge instruction packet handed to patient , discharge teaching done, all questions answered verbalized understanding jackie marie
--- NOTE | 2020-11-29 10:11 | NUR ---
nurse notes discharged in stable condition with all belongings taken,accompanied by [employer] refused to be wheeled,discharged via private car, grape picker by family member jackie marie
[2020-11-29] MEDS ORDERED: Tubing IV Secondary IV ONE (10:13)
--- NOTE | 2020-11-29 11:57 | NUR ---
INSURANCE CLINICALS/DC INSTRUCTIONS FAXED TO [facility] [phone]
--- NOTE | 2020-11-30 06:44 | Consultation ---
DATE OF CONSULTATION: 11/28/2020 INFECTIOUS DISEASE CONSULTATION This consult is for coverage of Dr. Owen. CONSULTING PHYSICIAN: Pedro Tanner MD PRIMARY ATTENDING: Paulino Carlisle MD REASON FOR CONSULT: E. coli sepsis and pyelonephritis. HISTORY OF PRESENT ILLNESS: This is a 55-year-old female admitted on 11/24/2020 because of left side abdominal pain, nausea, vomiting. Patient had history of recent admission to [facility] between 10/29/2020 and 11/02/2020 with E. coli sepsis and UTI. Again this time, culture became positive for E. coli in the blood and urine. On previous admission had COVID-19. PAST MEDICAL HISTORY: Diabetes mellitus, hypertension, chronic constipation, anemia, gastroesophageal reflux disease. ALLERGIES: No known drug allergies. MEDICATIONS: Getting ceftriaxone, Tylenol, Colace, milk of magnesia, Protonix, was on cefepime before, hydrocodone plus Tylenol, Mylanta, Zofran. SOCIAL HISTORY: . No history of alcohol, drug abuse, or smoking. REVIEW OF SYSTEMS: Had fever since admission that is becoming better. Had left side abdominal flank pain. Had constipation. PHYSICAL EXAMINATION: VITAL SIGNS: Temperature 97.8, pulse 87, blood pressure is 141/72. GENERAL APPEARANCE: No acute distress. Seems to have normal weight. HEAD AND NECK: Moist mucous membranes. HEART: Normal rate. LUNGS: Clear. ABDOMEN: Soft. Has left CVA tenderness. EXTREMITIES: Has no edema. NEUROLOGIC: She is awake, alert, oriented x3. LABORATORY AND DIAGNOSTIC DATA: WBC 6.4, hemoglobin 9.5, hematocrit 29.2, platelets 178. Sodium 137, potassium 3.5, chloride 101, bicarb 28, BUN 6, creatinine 0.6, glucose is 252. Glucose at the time of admission was 542, BUN was 22, creatinine 1.6, and sodium 123. Blood culture x1 E. coli that is only resistant to ampicillin and Bactrim, intermediate to Zosyn. Urine culture also grew E. coli that is resistant to Zosyn, oxacillin, and Bactrim. Patient had a CT scan of the abdomen and pelvis that showed abnormality in the left kidney concerning for pyelonephritis or infiltrative process such as lymphoma. IMPRESSION: 1. E. coli sepsis. 2. Pyelonephritis in the left side. 3. Diabetes mellitus with hyperglycemia. 4. Acute renal failure at the time of admission is improving. 5. Hyponatremia at the time of admission, corrected. 6. Anemia. 7. Constipation. 8. Hypertension. RECOMMENDATION: Continue ceftriaxone. Consider urologic evaluation for recurrent infection. At the end of my exam, I thank Dr. Carlisle for involving me in the care of this patient. Pedro Tanner M.D. DR: CARLOS JOB#: [id number] CC:
--- NOTE | 2020-12-03 13:34 | Discharge Summary ---
Discharge Summary Discharge Summary _ DATE OF ADMISSION: 11/24/2020 DATE OF DISCHARGE: 11/29/2020 DISCHARGED BY: Dr. Carlisle REASON FOR ADMISSION: 54 years old female with past medical history of hypertension, diabetes mellitus, asthma, prior COVID-19 pneumonia, prior E. coli sepsis due to UTI, acute kidney injury due to dehydration, presented to the emergency department due to abdominal pain with associated nausea and vomiting. Patient reported to feel weak and fatigued. Initial blood glucose was 500. No leukocytosis. Lactic acid 3.3. Urinalysis was grossly positive for urinary tract infection. BUN 22, creatinine 1.6. Sodium 123. CT scan of the abdomen and pelvis revealed normal appendix. Similar left renal findings since prior exam, concerning for pyelonephritis versus infiltrative process such as lymphoma. No hydroureteronephrosis or urolithiasis. Urinary bladder wall thickening, possibly represented cystitis. Chest x-ray revealed no acute process. Septic work-up initiated. Patient subsequently admitted for sepsis, pyelonephritis, hyperglycemia, hyponatremia and acute kidney injury. CONSULTANTS: ID specialist Dr. Pedro Gunderson HOSPITAL COURSE: Patient admitted to medical surgical floor and started on the IV hydration and empiric antibiotics. ID consulted. Urine culture revealed E. coli. Blood culture revealed E. coli. Antibiotic regimen optimized based on culture. Urology evaluation recommended as outpatient due to recurrent urinary tract infection. Renal parameters and electrolytes were closely monitored. Electrolytes corrected as needed m and nephrotoxic's were avoided. Sodium stabilized and prior to discharge 127. Prior to discharge BUN 6, creatinine 0.6.. Blood sugar was managed with sliding scale of insulin. Blood sugar stabilized. DVT and GI prophylaxis provided.. Home medication continued. Blood pressure remained stable. Pulse oximetry was stable on room air. No evidence of asthma exacerbation. Hemoglobin and hematocrit were closely monitored with goal to keep hemoglobin above 7. Prior to discharge hemoglobin 9.5, hematocrit 29.2. Patient clinically stabilized and was ready for discharge home. FINAL DIAGNOSES: E. coli sepsis Left-sided pyelonephritis Hyponatremia-resolved Diabetes mellitus with hyperglycemia Acute kidney injury Anemia Protein calorie malnutrition DISCHARGE MEDICATIONS: See Medication Reconciliation list. DISCHARGE INSTRUCTIONS: Patient was discharged home. Follow-up with a primary care provider in 1 week. I have been assigned to dictate discharge summary for this account. I was not involved in the patient's management. Karine Garduno SOCIAL SERVICES DESIGNEE Dec 03, 2020 13:34
== END 2020-11-29 10:14 | disposition home or self-care (01) | DRG 872 ==
LOC: EMR 19:55 → 4E 22:20 → CANBEDREQ 22:38 → EDBEDREQ 11-25 00:38
DX: A41.51 Sepsis due to Escherichia coli [E. coli] (principal); N17.9 Acute kidney failure, unspecified; N12 Tubulo-interstitial nephritis, not specified as acute or chronic; E87.1 Hypo-osmolality and hyponatremia; E46 Unspecified protein-calorie malnutrition; E11.65 Type 2 diabetes mellitus with hyperglycemia; Z86.16 Personal history of COVID-19; I10 Essential (primary) hypertension; D64.9 Anemia, unspecified; K21.9 Gastro-esophageal reflux disease without esophagitis; K59.00 Constipation, unspecified
CPT/HCPCS: 36415; 71045; 74177; 80048; 80053; 80170; 81003; 82962; 83605; 83690; 85025; 87040; 87086; 87181; 96361; 96365; 96375; 99285; J1815; J2405; J7030; J8499